=== PATIENT | female | born 1975 | race Caucasian/White ===

== ENCOUNTER 2025-04-08 13:09 | Outpatient (AMB) | payer OTHER, SELFPAY ==
--- OUTSIDE RECORDS SUMMARY | 2024-09-06 10:30 | XMS_ITS ---
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 :1975 A ge:49 Y S ex:Female Date:09/06/2024 Address:[address] [place], [place] [id number] Pcp:RD LR MD Subjective: * Chief Complaints: * 1 . ULTRA W/RENAL AND BLADDER- LOWER ABD PAIN. * Medical History: Objective: * Vitals: Assessment: Plan: * Treatment: * Images: Billing Information: * Visit Code: * Procedure Codes: * Electronic signature of Armand Mercado MD on 04/08/2025 at 01:49 PM EDT Sign off status: Pending * Appointment Provider: Natalia Mercado M.D. Date: 1 11/07/2023 Generated for Printi ng/Famarybethg/eTransmitting on: 0 04/08/2025 01:49 PM EDT
--- NOTE | 2025-04-08 13:11 | A.OFFVIS_ITS ---
Vital Signs 04/08/25 13:13 Height 5 ft 7 in Weight 192 lb 14.472 oz BMI 30.2 BP 98/70 Blood Pressure Location Rt brachial Position Sitting Pulse 65 Pulse Source Pulse Oximeter Pulse Oximetry (%) 96 Oxygen Delivery Method Room Air Intake Visit Reasons: moderate asthma Rn Medical Inpatient Services Required: No Accompanied by: Self / Same As Patient Allergies phenobarbital (Phenobarbital) Allergy (Unknown, Verified 04/08/25 13:15) ANAPHYLAXIS HPI Comments Details: The patient is here for pulmonary evaluation. 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 Apparently she was in her usual state health until back about a year ago she started developing chest pressure shortness of breath and cough. Moderate severity. Difficult for her to work with the significant coughing episodes. She did undergo pulmonary function studies and subsequently also underwent a methacholine challenge which I personally reviewed demonstrating a significant drop in the FEV1 consistent with hyperreactive airways and diagnosis of asthma. She was started on multiple inhalers. She was placed on Wixela. Although this is appeared to be tolerating the powder well causing her to have more chest pressure. Therefore she ends up having to use the albuterol after Wixela. She has tried and failed the Wixela. Does not appear to tolerate powder inhaler. Will go ahead and switch her to Symbicort at this time. In addition to that the patient did have history of smoking. She did take part in the lung cancer screening program. She did have a CAT scan in November 2024 which I personally reviewed demonstrating no acute disease. No pulmonary nodules parenchymal disease to be concerned about. We also did review blood work. She does not have any allergy laboratory studies to review although her eosinophils are completely normal suggesting that this is not allergic asthma. As far as triggers she has been exposed to fumes and sense from candles. She stopped using the candles and her symptoms did improve. 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 In addition to that the patient does have some thickening and dilation of the distal esophagus suggesting the possibility of a hiatal hernia. We did talk about the reflux diet and sleeping elevated. Sometimes she does complain about difficulty swallowing. Will go ahead and request a barium swallow at this time. [facility] Medical History (Updated 04/08/25 @ 20:59 by Raghav Lai MD) Dysphagia Cough Asthma Social History (Updated 04/08/25 @ 13:18 by Rina Rey CMA) Patient Tobacco Use Status: Former Tobacco user Review of Systems Const Denies fever(s) Eyes Reports no additional complaints ENT Reports no additional complaints and Reports dysphagia Card Denies chest pain Resp Reports cough and Reports wheezing GI Reports dysphagia Musc Reports as per HPI, Reports arthralgias, Reports joint swelling and Reports limited range of motion Skin/Breast Denies rash Neuro Reports no additional complaints Endo Reports no additional complaints Juanpablo/Lymph Reports no additional complaints Aller/Immun Reports wheezing Physical Exam Vital Signs: Last Vital Signs Pulse 65 04/08/25 13:13 BP 98/70 04/08/25 13:13 Pulse Ox 96 04/08/25 13:13 Oxygen Delivery Method Room Air 04/08/25 13:13 BMI result Body Mass Index 30.2 Const General: comfortable HEENT Head: Yes normocephalic Neck Neck: Yes supple Chest Chest palpation & inspection: normal inspection of the chest Resp Effort & Inspection: normal respiratory effort and prolonged expiratory phase Auscultation: diminished lung sounds Cardio Heart sounds: S1 normal heart sound present and S2 normal heart sound present Skin General skin exam: no rashes or lesions noted Extrem General: No clubbing and No cyanosis Assessment & Plan Assessment & Plan (1) Asthma: Code(s): J45.909 - Unspecified asthma, uncomplicated Category: Medical Qualifiers: Asthma severity: moderate Asthma persistence: persistent Asthma complication type: uncomplicated Qualified Code(s): J45.40 - Moderate persistent asthma, uncomplicated (2) Cough: Code(s): R05.9 - Cough, unspecified Category: Medical Qualifiers: Cough type: chronic Qualified Code(s): R05.3 - Chronic cough (3) Dysphagia: Code(s): R13.10 - Dysphagia, unspecified Category: Medical Qualifiers: Dysphagia type: unspecified Qualified Code(s): R13.10 - Dysphagia, unspecified Plan Does not tolerate powder inhaler due to adverse effect, will need to switch to HFA formulation Stop Wixela Start Symbicort reflux diet sleep with wedge pillow BArium swallow continue LDCT start Singulair Consider bloodwork/allergy testing if no better F/U 3-4 months Orders: Orders [place] barium swallow Today K21.9 - Gastro-esophageal reflux disease without esophagitis Medications: New budesonide-formoterol 160-4.5 mcg/actuation 2 puffs inhalation BID 10.2 grams 11RF 30 days J44.89 - Other specified chronic obstructive pulmonary disease montelukast (Singulair) 10 mg PO BEDTIME 30 tabs 11RF 30 days J45.909 - Unspecified asthma, uncomplicated Coding Level of Care Code New Pt Level 4 (03827) Diagnoses Moderate persistent asthma without complication J45.40 Asthma severity: moderate Asthma persistence: persistent Asthma complication type: uncomplicated Chronic cough R05.3 Cough type: chronic Dysphagia, unspecified type R13.10 Dysphagia type: unspecified Time Spent (min) 45
[2025-04-08 13:13] VITALS: BP 98/70; PULSE 65; O2SAT 96; BMI 30.2
--- OUTSIDE RECORDS SUMMARY | 2025-04-08 13:49 | XMS_ITS | Data Portability ---
Author Organization EVELIO Shashi Bueno 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 Patient reports pain primarily on top of the shoulder with radiation downward. Symptoms have been present for several years, predating her right shoulder surgery, with gradual worsening. Patient is an active swimmer and notes significant limitations with certain strokes, particularly butterfly. Conservative management has included physical therapy, rest, activity modification, oral anti-inflammatories and cortisone injection treatment along with with stretching exercises. Patient declined corticosteroid injections based on previous experience. No recent trauma reported. Of note, patient had successful right shoulder arthroscopic decompression approximately three years ago with good outcome. I independently reviewed the outside MRI of the left shoulder dated 10/25/2024 from [facility]. There is tendinosis of the distal supraspinatus with probable partial insertional tear at the greater tuberosity footprint. No full thickness tear. Subdeltoid/subacrom ial bursitis noted. Mild to moderate acromioclavicular joint arthrosis with inferior spurring. Degenerative signal in the superior labrum. Upper border tendinosis of the subscapularis. Flattening and intrasubstance signal the biceps tendon consistent with tendinopathy. Anterior and posterior labrum intact. Cartilage of the glenohumeral joint intact. She has a past history of hypertension, seizures and gastritis. Medications are listed in medical record. Past medical, surgical, family and social history; Medications, Allergies and 12-point review of systems have been reviewed, updated and charted. Physical Examination: Height and weight as noted in chart. Constitutional: Patient pleasant, well appearing and in NAD. Mental status: Patient is alert and oriented to person, place and time. No short-term memory deficits. Psychiatric: Mood and affect are appropriate. Head: Normocephalic and atraumatic. Exterior inspection of the ears and nose was unremarkable. Hearing grossly intact. Eyes: Sclera are not blue. 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 Full extraocular motion. Neck: Supple with age-appropriate ROM. No tracheal deviation. No obvious JVD. Respiratory: Non-labored breathing. Symmetric excursion. No audible wheezing or crackles on auscultation. Cardiovascular: Regular rate and rhythm and normal S1 and S2. Skin: No rashes, lesions, wounds to the upper extremities. Normal turgor and coloration. Musculoskeletal: On examination of the left shoulder, there is no effusion, erythema or ecchymosis. Active shoulder elevation 175 . External rotation 50 bilaterally. Internal rotation to the thoracolumbar junction. Discomfort with terminal range of motion. 4+/5 strength resisted abduction on the left with associated pain. Positive impingement signs. Positive acromial clavicular joint and biceps tenderness. Positive Gates's test. Small lipoma noted at the anterolateral shoulder. Impression and Plan: 49-year-old female with a chronic history of recurrent left shoulder pain with overall history, examination and MRI consistent with left shoulder rotator cuff tendinosis with likely partial insertional tear of the distal supraspinatus, subacromial impingement, acromioclavicular joint arthrosis and biceps tendinopathy. I discussed etiology of the patient's symptoms with her at length today. I discussed options both operative and nonoperative. At this point, she has failed conservative treatment including rest, activity modification, oral anti-inflammatories , physical therapy and cortisone injection treatment. She had similar issues to her right shoulder back in 2020 and underwent successful right shoulder arthroscopic decompression surgery with very good outcome. She complains of similar symptoms to her left side. Therefore, I recommend moving forward with left shoulder arthroscopic rotator cuff debridement versus repair, arthroscopic extensive debridement, arthroscopic distal clavicle excision, subacromial decompression with partial acromioplasty and possible biceps tenodesis depending on intraoperative findings. Anticipated recovery after shoulder decompression surgery is approximately 3-4 months. The patient will be in a sling for the first 3-5 days postop. Typically, I have patients begin physical therapy 1 week after surgery. If rotator cuff repair is necessary based upon intraoperative findings, we did discuss that this would prolong the patient's time in a sling for 6 weeks and overall anticipated recovery of 6 months with improvements up to 1 year postop. The patient does wish to proceed. Preoperative history and physical completed. All questions and concerns addressed. 1. A detailed discussion regarding the patient s pathoanatomy and treatment options, both operative and non-operative, was conducted today. 2. Given that conservative measures have failed, I recommended left shoulder arthroscopic rotator cuff debridement versus repair, arthroscopic extensive debridement, arthroscopic distal clavicle excision, subacromial decompression with partial acromioplasty and possible biceps tenodesis depending on intraoperative findings. 2. The mechanics of the major surgery were reviewed with explanation, diagram, and review of imaging. 3. I told the patient that the goal of surgery was to improve their overall function and symptoms, but that surgery may not relieve all symptoms. I advised the patient that symptom resolution after this procedure may be protracted and incomplete. I explained that, as a result, permanent functional limitations may be recommended. 4. An appropriate timeline of recovery was outlined, and appropriate expectations were reviewed. 5. The risks and benefits of surgery, and the nonoperative alternatives, were discussed at length. Risks include, but are not limited to infection, bleeding, damage to nerves, blood vessels, muscle, tendon, bone; need for further surgery, wound healing problems, hardware related problems, non-relief of symptoms, recurrence of pathology, reinjury, chronic pain, chronic numbness, chronic weakness, loss of function, compartment syndrome, fracture, complex regional pain syndrome, joint stiffness, adhesions/scarring, arthritis or progression of arthritis, complications of anesthesia, and blood clots. 6. The patient has been educated in clear, simple language and on their own level of understanding the risks and benefits of all viable treatment options, including those of no treatment. All questions have been answered to their satisfaction. The patient has made an informed decision to proceed with surgery. 7. The patient was offered a second opinion regarding diagnosis and management of their condition and they respectfully declined. The patient was referred for a semi-rigid/rigid orthosis. The patient has weakness and instability of their extremity which requires stabilization for this semi-rigid/rigid orthosis to improve their function. Verbal and written instructions for the use and application of this item were given. Patient was instructed that should the brace result in increased pain, decreased sensation, increased swelling or an overall worsening of their medical condition, to please contact our office immediately. Today's visit involved examining the patient, reviewing the history, reviewing the radiographic studies, counseling the patient regarding treatment options, and the administrative tasks including placing orders, preparing patient information and home handouts and preparing the visit note. 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 Please excuse any errors that may have been overlooked during review of this note. Sometimes, these errors may affect the content or meaning of a given sentence. Please call for corrections. [email or web address] Not available 11/22/2024 07:56:42 02/04/2025 02/04/2025 shoulde [email or web address] Not available 03/2025 08:32:38 03/25/2025 03/25/2025 shoulde [email or web address] Not available 03/03 13:16:00 Plan of Treatment Reminders Order Date Submit Date Provider Last Modified By Organization Details Last Modified Time Details Appointments RECHEC K 15 2024 09:30A M Joseline Toro PA-C Not available Not available Not available Lab None record ed. Referral physic al therap ist referr al - PHYSIC AL THERAP Y REFERR AL ICD-10 : M75.42 ; M75.22 (left) 1. Follow post-s urgica l protoc ol. 2. Soft tissue modali ties as indica ajit. 3. Daily home exerci se and ROM progra m. 4. Do not force painfu l motion . 5. Avoid abduct ion type, long arm streng thenin g exerci ses x 4 weeks. Allow 2-3 times a week for 6 weeks with home progra m. Date of Surger y: January 22, 2025 Comple ajit by: 2024 025 [email or web address] [facility] ([facility]), [address], [place], [address], 11/15/2024 11:11:04 physic al therap ist referr al - VMO Streng thenin g, Quad & Hamstr ing Stretc gisella, Shalonda a Mobili zation , Mack luna Taping pf chondr omalac ia 2023 024 [email or web address] Not available 03/11/2024 16:12:16 Procedures None record ed. Surgeries None record ed. Imaging XR, should er, 2 or more view - 4v L shldr. room 219 2024 025 [facility], [address], [address], [place], [address], 10/14/2024 09:28:32 XR, cervic al spine, 1 view - cspine . room 219 2024 025 [facility], [address], [address], [place], [address], 10/14/2024 09:28:32 MRI, should er, w/o contra st - L shldr mri. ?rct 2024 025 [facility] ([facility]), [address], [place], [address], 10/27/2024 19:13:06 XR, knee, 4 or more view - 301 bilat knee pain 4V 2023 024 bud [facility], [address], [address], [place], [address], 03/11/2024 16:12:16 Medication Orders meloxi cam 15 mg tablet 2023 024 lacho 1 [id number], [address] [facility] [place], [address], 02/29/2024 09:38:34 Patient TargetsNo targets recorded. Patient InstructionsNo instructions recorded. Reason for Referral Physical Therapist Referral for Pain of bilateral knee joints VMO Strengthening, Quad & Hamstring Stretching, Patella Mobilization, Forte Tapingpf chondromalacia Referring Physician: Mita Dickerson, Orthopedic Surgery, [id number] Encounter Date: 02/29/2024 Physical Therapist Referral for Impingement syndrome of left shoulder region PHYSICAL THERAPY REFERRAL ICD-10: M75.42; M75.22(left) 1. Follow post-surgical protocol.2. Soft tissue modalities as indicated.3. Daily home exercise and ROM program.4. Do not force painful motion.5. Avoid abduction type, long arm strengthening exercises x 4 weeks.Allow 2-3 times a week for 6 weeks with home program.Date of Surgery: January 22ompleted by: Referring Physician: Mau Polk, Orthopedic Surgery, Encounter Date: 11/15/2024 Results Created Date Observation Date Name Description Value Unit Range Abnormal Flag Note LastModifiedBy Organization Detail LastModifiedTime 01/04/20 25 01/04/2025 ELECT ROLYT E PANEL sodium 140 mmol/ L 134-14 4 normal Not Available [facility] ([facility]) [address] [place], [address], 01/04/2025 06:05:40 01/04/20 25 01/04/2025 ELECT ROLYT E PANEL potassium 3.1 mmol/ L 3.5-5. 2 below low normal Not Available [facility] ([facility]) [address] [place], [address], 01/04/2025 06:05:40 01/04/20 25 01/04/2025 ELECT ROLYT E PANEL chloride 100 mmol/ L 96-106 normal Not Available [facility] ([facility]) [address] [place], [address], 01/04/2025 06:05:40 01/04/20 25 01/04/2025 ELECT ROLYT E PANEL carbon dioxide, total 24 mmol/ L 20-29 normal Not Available [facility] ([facility]) [address] [place], [address], 01/04/2025 06:05:40 01/16/20 25 01/16/2025 ELECT ROLYT E PANEL sodium 140 mmol/ L 134-14 4 normal Not Available [facility] ([facility]) [address] [place], [address], 01/16/2025 08:12:56 01/16/20 25 01/16/2025 ELECT ROLYT E PANEL potassium 4.0 mmol/ L 3.5-5. 2 normal Not Available [facility] ([facility]) [address] [place], [address], 01/16/2025 08:12:56 01/16/20 25 01/16/2025 ELECT ROLYT E PANEL chloride 98 mmol/ L 96-106 normal Not Available [facility] ([facility]) [address] [place], [address], 01/16/2025 08:12:56 01/16/20 25 01/16/2025 ELECT ROLYT E PANEL carbon dioxide, total 20 mmol/ L 20-29 normal Not Available [facility] ([facility]) [address] [place], [address], 01/16/2025 08:12:56 05/31/20 24 11/28/2020 imagi ng/di agnos tic resul t No observ ation record ed. [email or web address] Not Available 05/04 06:15:32 10/14/19 25 10/14/2024 XR, cervi bouchra spine , 1 view [email or web address]:/ [email or web address] ?Encry pted=s hAaTro YD8dLq bEUv6g %2BXZw aYqtaq 0bqfl% 2Fg9IQ a4ajBk vP9nXo QUaueC m3YtLR FvZlgJ JJ8mAn HZtai3 9v8632 AC0Kqb 36HUKC iKiQtr MwF INTERFACE [facility] [address], [place], [address], 10/14/2024 09:08:03 10/14/19 25 10/14/2024 XR, cervi bouchra spine , 1 view [email or web address]:/ [email or web address] ?Encry pted=s hAaTro YD8dLq bEUv6g %2BXZw aYqtaq 0bqfl% 2Fg9IQ a4ajBk vP9nXo QUaueC m3YtLR FvZlgJ JJ8mAn HZtai3 5x3012 AC0Kqb 36HUKC iKiQtr MwF INTERFACE [facility] [address], [place], [address], 10/14/2024 09:08:06 10/14/19 25 10/14/2024 XR, shoul umu, 2 or more view [email or web address]:/ [email or web address] ?Encry pted=s hAaTro YD8dLq bEUv6g %2BXZw aYqtaq 0bqfl% 2Fg9IQ a4ajBk vP9nXo QUaueC m3YtLR FvZlgJ JJ8mAn HZtai3 3w5665 AC0Kqb 36HUKC lKiQtr MwF INTERFACE [facility] [address], [place], [address], 10/14/2024 09:11:06 10/14/19 25 10/14/2024 XR, shoul umu, 2 or more view [email or web address] ?Encry pted=s hAaTro YD8dLq bEUv6g %2BXZw aYqtaq 0bqfl% 2Fg9IQ a4ajBk vP9nXo QUaueC m3YtLR FvZlgJ JJ8mAn HZtai3 0f7679 AC0Kqb 36HUKC lKiQtr MwF INTERFACE [facility] [address], [place], [address], 10/14/2024 09:11:08 10/27/19 25 10/25/2024 MRI, anirudh sanz, w/o contr ast [facility] Access ion Number : [id number] Patien t Name: Chelsea Diop Record Number : [id number] Date of : 1974 Date of Exam: 2024 Referr ing Physic maryann: [facility] [address], [address] [place] [address] Exam: MR Should er (C-) CPT 22285 - Left Room Descri ption: [facility] 3.0T Clinic al Histor y: Left should er pain. Techni que: MRI of the left should er was perfor med withou t intrav enous contra st. Compar paulino: None. Findin gs: Bone: The bone and bone marrow are normal . Articu lar cartil age: Mild diffus e glenoh umeral cartil age thinni ng. AC joint: Minima l AC joint degene rative change . Rotato r cuff: Modera te grade bursal sided partia l-thic kness tear anteri or fibers the supras pinatu s measur ing 3 mm AP by 5 m TRV, series 3 image 10 series 8 image 22. Mild infras pinatu s tendin opathy . Teres minor appear s intact . Mild subsca pulari s tendin opathy . Normal muscle bulk. Glenoi d labrum and biceps tendon : Mild intra- articu lar biceps tendin opathy . Superi or labral degene ration of withou t discre te tear. Impres kiki: 1. Tiny modera te grade partia l-thic kness bursal sided tear of the supras pinatu s. 2. Mild subsca pulari s tendin opathy . 3. Mild intra- articu lar biceps tendin opathy . Electr onical ly Signed By: Addy maria MD [email or web address] [facility] ([facility]) [address], [place], [address], 10/30/2024 08:28:22 Result Notes Documentation Provider Name and Address Organization Details Recorded Time Xr, Cervical Spine, 1 View : [email or web address] Encrypted=bjOfLmnEG0xHdcN Uv6g%2DNSxbWatkg1noxu%2Fg 0CAu2hsXoiA9wWrYImhzGc5Pn UVDdJbiBWH7fTpUXnfx93t759 4CT8Jwl08PSROkNpYjuIsW Not Available [facility] 10/14/2024 09:08:04 Xr, Cervical Spine, 1 View : [email or web address] Encrypted=aaEnAimQR0aDghF Uv6g%1NAWelPrzaa8nxkb%2Fg 1IVk7rfFcpL6pChSFjesEd7Wu UBInJgnKNS2dVgZKccp75k048 5FY6Zjf07RHGFvZvUunGfN Not Available [facility] 10/14/2024 09:08:06 Xr, Shoulder, 2 Or More View : [email or web address] Encrypted=uaSfZvlGJ2nEdnM Uv6g%0MVIhrKtadz5plda%2Fg 6FPj4gaZylW1dQpSJvgvVj7Rq HBNnNxqCFS1vGeCXvxr71a542 7MM5Vgr51ZBULmEtKelJzY Not Available [facility] 10/14/2024 09:11:07 Xr, Shoulder, 2 Or More View : [email or web address] Encrypted=ayNlGbpAG8nPihP Uv6g%8SDEsrIwqha3fser%2Fg 0USe3vvPaoX0eVxPEpwnTh3Zv BCMsWecXXO8pYyUXtvf30q261 1FT0Wsx89WZZCqKlPliYsI Not Available [facility] 10/14/2024 09:11:09 Mri, Shoulder, W/o Contrast : [facility] [place] Accession Number: [id number] Patient Name: Geni Diop Date of : 1975 Date of Exam: 10-25-2024 Referring Physician: Forest Whitley [facility] [address], [address] [place] [address] Exam: MR Shoulder (C-) CPT 48359 - Left Room Description: [facility] 3.0T Clinical History: Left shoulder pain. Technique: MRI of the left shoulder was performed without intravenous contrast. Comparison: None. Findings: Bone: The bone and bone marrow are normal. Articular cartilage: Mild diffuse glenohumeral cartilage thinning. AC joint: Minimal AC joint degenerative change. Rotator cuff: Moderate grade bursal sided partial-thickness tear anterior fibers the supraspinatus measuring 3 mm AP by 5 m TRV, series 3 image 10 series 8 image 22. Mild infraspinatus tendinopathy. Teres minor appears intact. Mild subscapularis tendinopathy. Normal muscle bulk. Glenoid labrum and biceps tendon: Mild intra-articular biceps tendinopathy. Superior labral degeneration of without discrete tear. Impression: 1. Tiny moderate grade partial-thickness bursal sided tear of the supraspinatus. 2. Mild subscapularis tendinopathy. 3. Mild intra-articular biceps tendinopathy. Electronically Signed By: EVELIO Ramachandran MD [facility] 10/30/2024 08:28:23 Problems Name Problem SNOMED Code Status Onset Date Resolution Date Notes Provider Name and Address Organization Details Recorded Time Disorder of electrolyte s 080988320 Active 2024 EVELIO Ramos [facility] 5 09:32:12 Essential hypertensio n 22845240 Active 2024 EVELIO Ramos [facility] 5 14:47:17 Impingement syndrome of left shoulder region 9928122600169 04 Active 2024 KAYLIA L'HEUREUX EVELIO randhawa [facility] 5 11:11:23 Osteoarthri tis of joint of left shoulder region 7193541609863 08 Active 2024 Joseline Toro PA-C [address], [place], [address], [facility] 5 08:33:00 Bilateral osteoarthri tis of knees 8036082814881 07 Active 2023 Mita Briceño i, PA-C [address], [place], [address], [facility] 4 11:36:53 Problem Notes None recorded. Procedures Surgical History Date Name Laterality Status Provider Name and Address Organization Details Recorded Time 1 Shoulder Surgery completed Mita Dickerson PA-C [address], [place], [address], [facility] 02/29/2024 11:37:56 3 Bariatric Surgery completed Mita Dickerson PA-C [address], [place], [address], [facility] 02/29/2024 11:37:56 Imaging Results None recorded. Procedure Notes None recorded. Medical Equipment None Reported. Allergies Allergen ID Allergen Name Allergen Category Reaction Reaction Severity Criticality Documentation Date Start Date Code Code System Note Provider Name and Address Organization Details Recorded Time 776975 phenobarb ital medicatio n swelling Not available Not available 02/27/2024 8134 RxNorm JEREL Stark [address], [place], [address], [facility] 4 16:29:06 57751 acetamino phen / oxycodone medicatio n Not available Not available Not available 12/04/20232008 78735 3 [facility] 5 08:55:59 Medications Name Sig Start Date Stop Date Status Note LastModified by Organization Details LastModified Time amoxicillin 500 mg capsule TAKE 1 CAPSULE BY MOUTH EVERY 6 HOURS UNTIL GONE 02/04 completed Not Available Not Available Not Available acetic acid 2 % ear solution TAKE 4 DROPS (OTIC (EAR)) 3 TIMES PER DAY FOR 5 DAYS 11/15 completed Not Available Not Available Not Available azithromyci n 250 mg tablet TAKE 2 TABLETS BY MOUTH TODAY, THEN TAKE 1 TABLET DAILY FOR 4 DAYS DIRECTED 10/14 completed Not Available Not Available Not Available fluconazole 150 mg tablet TAKE 1 TABLET BY MOUTH ONCE 02/27 completed Not Available Not Available Not Available benzonatate 200 mg capsule TAKE 1 CAPSULE BY MOUTH THREE TIMES A DAY DIRECTED FOR 10 DAYS 10/14 completed Not Available Not Available Not Available hydrocodone 5 mg-acetamin ophen 325 mg tablet TAKE 1 TO 2 TABLET BY MOUTH EVERY 6 HOURS NEEDED FOR PAIN active Not Available Not Available No t Available meloxicam 15 mg tablet Take 1 tablet every day by oral route for 30 days. 11/15 completed Not Available Not Available Not Available ondansetron HCl 4 mg tablet TAKE 1 TABLET BY MOUTH EVERY 6 TO 8 HOURS NEEDED FOR NAUSEA active Not Available Not Available No t Available prednisone 20 mg tablet TAKE 2 TABLETS BY MOUTH EVERY DAY FOR 5 DAYS 02/27 completed Not Available Not Available Not Available meclizine 12.5 mg tablet TAKE 1 TABLET BY MOUTH THREE TIMES A DAY DIRECTED FOR 10 DAYS NOT COVERED 02/27 completed Not Available Not Available Not Available chlorthalid one 25 mg tablet TAKE 1 TABLET BY MOUTH EVERY DAY active Not Available Not Available No t Available omeprazole 40 mg capsule,del ayed release TAKE 1 CAPSULE BY MOUTH EVERY DAY active Not Available Not Available No t Available aspirin 81 mg tablet,suzi yed release TAKE 1 TABLET BY MOUTH EVERY DAY. BEGINNING THE DAY AFTER SURGERY. TAKE WITH FOOD 02/04 completed Not Available Not Available Not Available trazodone 100 mg tablet TAKE 1 TABLET BY MOUTH EVERYDAY AT BEDTIME active Not Available Not Available No t Available doxycycline monohydrate 100 mg capsule TAKE 1 CAPSULE BY MOUTH TWICE A DAY FOR 7 DAYS 02/27 completed Not Available Not Available Not Available ferrous sulfate 325 mg (65 mg iron) tablet TAKE 1 TABLET BY MOUTH EVERY DAY 02/27 completed Not Available Not Available Not Available codeine 10 mg-guaifene sin 100 mg/5 mL oral liquid TAKE 10 ML BY MOUTH EVERY 4 HOURS FOR 5 DAYS DIRECTED 10/14 completed Not Available Not Available Not Available ergocalcife rol (vitamin D2) 1,250 mcg (50,000 unit) capsule TAKE 1 CAPSULE BY MOUTH EVERY WEEK FOR 84 DAYS 02/27 completed Not Available Not Available Not Available albuterol sulfate HFA 90 mcg/actuati on aerosol inhaler INHALE 2 PUFFS BY MOUTH EVERY 4 HOURS NEEDED active Not Available Not Available No t Available fluticasone propionate 50 mcg/actuati on nasal spray,suspe nsion SPRAY 2 SPRAYS INTRANASA LLY DAILY 02/27 completed Not Available Not Available Not Available naproxen 500 mg tablet TAKE 1 TABLET(S) 2 TIMES A DAY BY ORAL ROUTE FOR 5 DAYS. TAKE WITH FOOD. 02/04 completed Not Available Not Available Not Available amoxicillin 875 mg-potassiu m clavulanate 125 mg tablet TAKE 1 TABLET BY MOUTH TWICE A DAY FOR 10 DAYS 02/27 completed Not Available Not Available Not Available oxycodone 5 mg tablet TAKE 1 TABLET(S) EVERY 6 HOURS BY ORAL ROUTE NEEDED FOR MODERATE TO SEVERE PAIN active Not Available Not Available No t Available escitalopra m 20 mg tablet TAKE 1 TABLET BY MOUTH EVERYDAY AT BEDTIME active Not Available Not Available No t Available nitrofurant oin monohydrate /macrocryst als 100 mg capsule TAKE 1 CAPSULE BY MOUTH 2 TIMES PER DAY FOR 7 DAYS MUST ADMINISTE R WITH A MEAL/FOOD active Not Available Not Available No t Available cholecalcif yovany (vitamin D3) 50 mcg (2,000 unit) capsule TAKE 1 CAPSULE BY MOUTH EVERY DAY FOR 90 DAYS active Not Available Not Available No t Available oxycodone HCl-oxycodo ne-ASA as directed 1Tabs po Q 4-6 hrs prn pain. DO NOT DRIVE WHILE TAKING THIS MEDICATIO N 02/27 completed Statu s: 'Curr ent'; Not Available Not Available Not Available lamotrigine ER 200 mg tablet,exte nded release 24 hr TAKE 2 TABLETS (400 MG TOTAL) BY MOUTH AT BED TIME. active Not Available Not Available No t Available Wixela Inhub 250 mcg-50 mcg/dose powder for inhalation INHALE 1 PUFF BY MOUTH EVERY 12 HOURS DIRECTED 11/15 completed Not Available Not Available Not Available Wixela Inhub 500 mcg-50 mcg/dose powder for inhalation INHALE 1 PUFF INTO THE LUNGS TWICE A DAY FOR 30 DAYS active Not Available Not Available No t Available Vitals Date Recorded Body height Body mass index (BMI) Body weight Provider Name and Address Organization Details Last Updated DateTime 10/14/2024 170.18 cm 32.9 kg/m2 56314.4 g Sallie Barney [facility] 10/14/2024 08:58:48 Date Recorded Body height Body mass index (BMI) Body weight Heart rate Body temperature Oxygen saturation Oxygen saturation in Arterial blood by Pulse oximetry Respiratory rate Systolic And Diastolic Provider Name and Address Organization Details Last Updated DateTime 170.18 cm 32.9 kg/m2 74853.4 g 67 /min 98 [degF] 98 % 98 % 18 /min 116/74 mm[Hg] MERCEDES BUSTILLOS [facility] 09:58:43 Date Recorded Body height Body mass index (BMI) Body weight Provider Name and Address Organization Details Last Updated DateTime 02/04/2025 170.18 cm 30.9 kg/m2 67513.7 g jimi rodas [facility] 02/04/2025 08:48:02 Date Recorded Body height Body mass index (BMI) Body weight Provider Name and Address Organization Details Last Updated DateTime 02/29/2024 170.18 cm 32.9 kg/m2 46149.4 g CHANDLER NESBITT [facility] 02/29/2024 09:11:21 Date Recorded Body height Provider Name an d Address Organization Details Last Updated DateTime 03/25/2025 170.18 cm EZEQUIEL RYAN [facility] 03/25/2025 10:01:30 Social History Question Answer Notes LastModified by Organizat ion Details LastModified Time Tobacco Smoking Status Former Smoker Sallie randhawa [facility] 10/14/2024 08:56:14 When Did You Quit Smoking? 1-5yearssin celastcigar ette Information not available 10/14/2024 What Is Your Relationship Status? Single Information not available 10/14/2024 How Many Years Have You Smoked Tobacco? 35 Information not available 10/14/2024 Sex: Unknown Functional Status Question Answer Note LastModified by Organizat ion Details LastModified Time How many times per week do you consume alcohol? Less than 1 time per week Information not available 10/14/2024 Do you use any illicit or recreational drugs? No Information not available 10/14/2024 Do you or have you ever used any other forms of tobacco or nicotine? Yes [email or web address] Information not available 11/15/2024 Do you or have you ever used e-cigarettes or vape? Never used electronic cigarettes Information not available 10/14/2024 Mental Status None recorded. Family History Nothing Reported. Medical History Condition Response Allergies/Hayfever Y Breathing or lung disorders Y Anxiety/Depression Y Anemia Y Kidney/Bladder Problems Y Arthritis Y Seizures/Epilepsy Y Acid Reflux (GERD) N Asthma Y Hypertension Y Gynecological HistoryNo gynecological history recorded. Obstetrics History GPAL:G 0 P 0 0 0 0 Past Encounters Encounter ID Performer Location Encounter Start Date Encounter Closed Date Diagnosis/Indication Diagnosis SNOMED-CT Code Diagnosis ICD10 Code Diagnosis Note [id number] JEREL Nation [address] [place] [address] 02/29/2024 08:53:29 03/11/2024 16:12:16 Pain of bilateral knee joints 8299952125 32035 M25.561 M25.562 Bilateral osteoarthritis of knees 3199958101 76380 M17.0 [id number] JEREL Sargent [address] [place] [address] 10/14/2024 08:52:51 11/04/2024 13:04:12 Pain of left shoulder joint 9789639865 5177802 M25.512 Impingemen t syndrome of left shoulder region 8012505626 89662 M75.42 [id number] MD CHIKIS Gómez [address] [place] [address] 11/15/2024 08:20:35 12/03/2024 13:05:39 Impingement syndrome of left shoulder region 1664922175 57012 M75.42 Nontraumat ic partial rupture of left rotator cuff 0604153396 819361 M75.277 [id number] JEREL Patiño [address] [place], [place] [address] 02/04/2025 08:40:00 02/11/2025 10:00:26 Postoperative visit 297307134 Z48.89 Impingemen t syndrome of left shoulder region 1931986946 55168 M75.42 Osteoarthr itis of joint of left shoulder region 0759427424 55719 M19.883 [id number] JEREL Patiño [facility] [address] [place] [address] 03/25/2025 09:56:04 04/02/2025 13:15:28 Postoperative visit 584095219 Z48.89 Impingemen t syndrome of left shoulder region 0349614683 36850 M75.42 Osteoarthr itis of joint of left shoulder region 8283937880 62719 M19.012 Health Concerns Section Related Observation LastModified by Organization Detai ls LastModified Time None Recorded Concern Status LastModified by Organization Details LastModified Time None Recorded Advance Directives Directive None Recorded Payers Insurance Date Sequence Insurance Name Policy Number Policy Carter Covered Member ID Carter Member ID Guarantor Name 04/02/2025 1 [facility] [id number] Geni Diop [id number] Geni Diop Notes Date Note Type Note Provider Name and Address Organization Details Recorded Time 02/29/2024 text/html I am seeing the patient today under the supervision of Dr. Polk who was available but who did not see the patient. HPI: 48 y.o .female patient presents today for bilateral knee pain, right worse than left. She reports she has had knee pain since college, no specific injury. Pain is diffuse about the knee, worse with knee flexion to extension and reports painful, palpable crepitus. She attempted physical therapy many years ago and reports this made her pain worse. She takes ibuprofen occasionally without relief. Past family, social history and review of systems has been reviewed, updated and is located in the patient s chart. X-RAYS:4v X-rays of the Bilateral knees were ordered, obtained and reviewed today at [facility] AP and Mccall views demonstrate minimal medial compartment space narrowing. Lateral and merchant views demonstrate mild patellofemoral space narrowing with osteophyte formation. IMPRESSION: Bilateral knee - patellofemoral osteoarthritis PLAN: Findings reviewed. We discussed conservative treatment as an appropriate initial option. Meloxicam 15 mg to be taken daily with food was sent to her pharmacy. She was instructed to take this with food and avoid other NSAIDs. Physical therapy prescription was provided. Follow-up in 10 to 12 weeks for recheck. If no better, would have a low threshold to obtain an MRI of the right knee. All of her concerns are addressed and she understands and agrees with the plan. 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 An attempt at proofreading has been made to minimize errors. Please call for corrections. Mita Dickerson PA-C [address] [place] [address] [address], [place], [address], [facility] 02/29/2024 11:38:08 10/14/2024 text/html I am seeing the patient today under the supervision of Dr. Rai who was available but who did not see the patient. HPI: Geni is a very pleasant 49-year-old female who presents for orthopedic evaluation of left nondominant shoulder pain. 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 Treatment for the left shoulder has included Aleve twice daily and also a home exercise program. She has done home therapy as she is familiar with this. Despite these measures she is not noting any improvement. Patient had previous right shoulder arthroscopy by Dr. Polk for impingement and has done very well. She is familiar with a exercise program having been through therapy on the right. She is describing nighttime discomfort. Occasional numbness and tingling down the arm. Pain worse with over shoulder height reaching. Also is describing a small subcutaneous bump underneath the skin posterior shoulder. Past family, medical, social history and review of systems has been reviewed, updated and signed by me and is located in the patient's chart. Generally healthy 49-year-old without major medical issues. Prior right shoulder arthroscopy for bone spurs. Examination: The patient is well appearing and in no apparent distress. Alert and oriented x3. Gait is symmetric. Patient does not show any overt deformities about the shoulder. Evaluation of the left shoulder shows a small subcutaneous mass with bump deformity consistent with lipoma posteriorly. This is approximately 1 cm in size. Evaluation of the shoulder has quite a bit of guarding with attempts at motion. Patient has moderate to severe pain with endrange external and internal rotation and is lacking 30 to 40 degrees of rotation. Forward flexion to 140 degrees with pain beyond that. Pain reproduced with resisted rotator cuff strength testing but intact 5/5 strength and normal mechanics. X-rays ordered, obtained and independently reviewed today at [facility]. 4 views of the left shoulder and lateral of the cervical spine were independently reviewed today. For the shoulder AP, Grashey, outlet and axillary views are overall within normal limits. There is no significant spurring. No narrowing of the AC joint. No marginal osteophytes.Cervical spine radiographic exam also well-preserved and within normal limits no significant disc collapse and well-preserved alignment Impression: Left shoulder impingement tendinitis/bursitis Plan: Lengthy discussion today with Geni regarding her left shoulder symptoms and diagnosis. She feels that her symptoms are similar to what she had on the opposite right and is interested in moving forward with definitive management with decompression and distal clavicle excision. She informs me that with the opposite right shoulder cortisone and therapy did not help her to any great degree. She has used oral NSAIDs and home physical therapy. Despite these measures and having persistent pain. I am recommending at this time MRI imaging of the left shoulder to assess for rotator cuff pathology and bursitis. Recheck as arranged with Dr. Polk in 5 weeks for his evaluation and MRI review. Potential need for surgery was discussed. Forest Whtiley PA-C [address] [facility] [address], [place], [address], [facility] 10/14/2024 09:45:49 02/04/2025 text/html I am seeing the patient today under the supervision of Dr. Polk who was available but who did not see the patient. HPI: Patient presents to the office today approximately 2 weeks status post left shoulder arthroscopy, subacromial decompression, distal clavicle excision, and extensive debridement. Overall doing well. Pain has been controlled. Denies issues with incision sites or neurovascular changes. No systemic complaints. PMH/PSH/MEDS/ALL/FMH/ SOC HX/ROS are reviewed in detail per my medical intake sheet. General Exam: Vital signs are as noted below Mental status: Alert and lucid. Normal insight, affect and grooming. DRILL DOCTOR: Gross motor coordination is intact. No spasticity or clonus noted. EXAMINATION: The patient is well appearing and in no apparent distress. Alert and oriented x3. Gait is symmetric. Left shoulder reveals well-healing surgical scars. No erythema, ecchymosis, or active drainage. Good muscle bulk without atrophy. Neurovascularly intact. No localized tenderness. Passive elevation of the arm to approximately 90 degrees. Full range of motion present at the elbow, wrist, and hand. No evidence of instability of the shoulder. Intraoperative photos have been reviewed. IMPRESSION: Approximately 2 weeks status post left shoulder arthroscopy, subacromial decompression, distal clavicle excision, and extensive debridement. PLAN: Intraoperative findings have been reviewed with the patient. The patient is recovering well following recent surgery. Pain has been controlled. We reviewed the signs/symptoms of infection. Has weaned off the sling as directed. Participating in physical therapy per Dr. Polk's post-operative protocol. Will follow up in one month for a recheck, sooner if there are any issues. Work note given. All questions were answered. Joseline Toro PA-C [address] [facility] [address] [place] [address], [address], [facility] 02/04/2025 16:19:05 03/25/2025 text/html I am seeing the patient today under the supervision of Dr. Reaves who was available but who did not see the patient. HPI: Patient presents to the office today approximately 2 months status post left shoulder arthroscopy, subacromial decompression, distal clavicle excision, and extensive debridement. Overall doing well. Pain has been controlled. Has been making good progress with physical therapy. PMH/PSH/MEDS/ALL/FMH/ SOC HX/ROS are reviewed in detail per my medical intake sheet. General Exam: Vital signs are as noted below Mental status: Alert and lucid. Normal insight, affect and grooming. DRILL DOCTOR: Gross motor coordination is intact. No spasticity or clonus noted. EXAMINATION: The patient is well appearing and in no apparent distress. Alert and oriented x3. Gait is symmetric. Left shoulder reveals well-healed surgical scars. No erythema, ecchymosis, or active drainage. Good muscle bulk without atrophy. Neurovascularly intact. No localized tenderness. Passive elevation of the arm to approximately 170 degrees, IR to L4, ER 60 degrees. Full range of motion present at the elbow, wrist, and hand. No evidence of instability of the shoulder. Strength is appropriate. Intraoperative photos have been reviewed. IMPRESSION: Approximately 2 months status post left shoulder arthroscopy, subacromial decompression, distal clavicle excision, and extensive debridement. PLAN: Intraoperative findings have been reviewed with the patient. The patient is recovering well following recent surgery. Pain has been controlled. We reviewed the signs/symptoms of infection. Has been participating in physical therapy per Dr. Polk's post-operative protocol. Will follow up in 6-8 weeks, sooner if there are any issues. Work note given. All questions were answered. Joseline Toro PA-C [address] [facility] [address], [place], [address], [facility] 03/25/2025 10:50:52 OBGyn Episode No OBEpisode recorded.
--- OUTSIDE RECORDS SUMMARY | 2025-04-08 13:49 | XMS_ITS | Clinical Summary ---
Author Organization [facility] Address [address] [place] [address] Care Team Providers Care College Specialist Name Role Phone Unavailable Primary Care Provider Unavailabl e Surgical History Surgery Date Site/Laterality Comments GASTRIC BYPASS 2002 PROCEDURE: SD GASTRIC RSTCV W/BYP W/SM INT RCNSTJ LIMIT ABSRPJ CHOLECYSTECTOMY 06/06 PROCEDURE: LAPAROSCOPIC CHOLECYSTECT HYSTERECTOMY age 19 PROCEDURE: SD VAGINAL HYSTERECTOMY UTERUS 250 GM/<; COMMENT: dysfunctional Uterine bleeding TONSILLECTOMY 03/2007 PROCEDURE: HISTORICAL TONSILLECTOMY APPENDECTOMY PROCEDURE: HISTORICAL APPENDECTOMY Medical History Medical History Date Comments Unspecified epilepsy without mention of intractable epilepsy DX:Unspecified epilepsy with out mention of intractable epilepsy Depressive disorder, not els ewhere classified DX:Depressive disorder, not elsewhere classified Morbid obesity (CMS/HCC V24, CMS/HCC V28) DX:Morbid obesity (HCC); COM MENT: hx of, bypass 2002 Unspecified arthropathy, lower leg DX:Unspecified arthropathy, lower leg Calculus of kidney DX:Calculus o f kidney Tobacco use disorder 02/08/2006 DX:Tobacco use disorder Historical Medical DX DX:Fam hx- cardiovas dis NEC Family History Medical History Relation Name Comments Heart attack Father age 35 Other: cad Maternal Grandfather Diabetes Maternal Grandmother Lung cancer Maternal Grandmother smoker Other: tachycardia Mother Relation Name Status Comments Father Alive mi age 35 Maternal Grandfather cad in his 40's Maternal Grandmother lung ca ncer - smoker Mother Alive tachycardia Paternal Grandmother diabeti c Social History Tobacco Use Types Packs/Day Years Used Date Smoking Tobacco: Every Day Cigarettes Alcohol Use Standard Drinks/Week Comments Not Asked 0 (1 standard drink = 0.6 oz pur e alcohol) Comments Unknown Sex and Gender Information Value Date Recorded Sex Assigned at Not on file Legal Sex Female 2:19 PM EST Gender Identity Not on file Sexual Orientation Not on file Obstetrics History Plan of Treatment Health Maintenance Due Date Last Done Comments Breast Cancer Screening 1973 DTaP,Tdap,and Td Vaccines (1 - Tdap) 1992 Hepatitis B Vaccines (1 of 3 - 19+ 3-dose series) 1992 Cervical Cancer Screening: P ap Smear 1994 Pneumococcal Vaccine: 50+ Ye ars (1 of 1 - PCV) 2023 Zoster Vaccines (1 of 2) 2023 COVID-19 Vaccine (1 - 2023-2 5 season) 2024 Influenza Vaccine (#1) 2025 HIB Vaccines Aged Out No longer eligi ble based on patient's age to complete this topic HPV Vaccines Aged Out No longer eligi ble based on patient's age to complete this topic Hepatitis A Vaccines Aged Out No long er eligible based on patient's age to complete this topic IPV Vaccines Aged Out No longer eligi ble based on patient's age to complete this topic MMR Vaccines Aged Out No longer eligi ble based on patient's age to complete this topic Meningococcal ACWY Vaccine Aged Out N o longer eligible based on patient's age to complete this topic Meningococcal B Vaccine Aged Out No l onger eligible based on patient's age to complete this topic Pneumococcal Vaccine: Pediat rics (0 to 5 Years) and At-Risk Patients (6 to 49 Years) Aged Out No longer eligible b ased on patient's age to complete this topic RSV Immunization Patients Un umu 20 months Aged Out No longer eligible b ased on patient's age to complete this topic Varicella Vaccines Aged Out No longer eligible based on patient's age to complete this topic
--- OUTSIDE RECORDS SUMMARY | 2025-04-08 13:49 | XMS_ITS | Clinical Summary ---
Author Organization [facility] Address [address] [place] [address] Care Team Providers Care Pulmonary Fellow Name Role Phone LongLamberto ledesma Primary Care Provider [phone] Allergies Active Allergy Reactions Criticality Noted Date Comments Phenobarbital Swelling High Topiramate Unknown Verapamil Constipation Low Medications chlorthalidone (HYGROTEN) 25 mg tablet TAKE 1/2 A TABLET EVERY DAY BY MOUTH 3 8 Active escitalopram (LEXAPRO) 20 mg tablet 30 mg. 2 8 Active omeprazole (PriLOSEC) 40 mg capsule Take 40 mg by mouth daily. 1 8 Active traZODone (DESYREL) 100 mg tablet daily. Active fluticasone propion-salmeter oL (ADVAIR DISKUS) 250-50 mcg inhaler Inhale 1 puff by mouth 2 times a day. Rinse mouth with water after use. Do not swallow. Active albuterol (PROAIR HFA,VENTOLIN HFA) 90 mcg inhaler Inhale 1-2 puffs by mouth as needed for wheezing or shortness of breath. Use with spacer. Active lamoTRIgine XR (LaMICtal XR) 200 mg tablet extended release 24hrIndications: Juvenile myoclonic epilepsy, not intractable, without status epilepticus (HCC) Take 2 tablets (400 mg total) by mouth at bed time. 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 right handed female with a history of migraines, asthma, anxiety, and depression, who presents to [facility] epilepsy clinic for routine follow-up regarding JM epilepsy. She is on Lamotrigine monotherapy. She had dizziness with higher doses of Lamotrigine. Doing well overall. She has noted memory difficulties over the last year. We discussed contributing factors that may affect memory, including mood, sleep, assisted use of AEDs. - Continue Lamotrigine XR 400 mg nightly - Neuropsychological evaluation for memory concerns - Discussed HOBSCOTCH for Self-Management and Cognitive Training- Seizure diary - Seizure and fall precautions at all times - Follow up in one year, or sooner as needed Assessment & Plan (07/12/2023 9:17 AM EDT): This is a 48 y.o. right handed female with a history of migraines, anxiety, and depression, who presents to [facility] epilepsy clinic for routine follow-up regarding JM epilepsy. She is on Lamotrigine monotherapy. She had dizziness with higher doses of Lamotrigine. Doing well. No change in jerking with activity. - Continue Lamotrigine XR 400 mg HS - Surveillance lab ordered; complete with routine lab work from PCP. (LTG level tends to run low) - Seizure diary - Seizure and fall precautions at all times - Follow up in one year, or sooner as needed Assessment & Plan (07/12/2022 10:36 AM EDT): This is a 47 year old female with a history of LOUISA, on Lamotrigine monotherapy. She had dizziness with higher doses of Lamotrigine; no further jerking or myoclonus on current dose. - Continue Lamotrigine XR 400 mg HS - Surveillance lab ordered; complete with routine lab work from PCP. (LTG level tends to run low) - Seizure diary - Seizure and fall precautions at all times - Follow up in one year, or sooner as needed Assessment & Plan (07/09/2021 9:22 AM EDT): This is a 46 year old female with a history of LOUISA, on Lamotrigine monotherapy. She had dizziness with higher doses of Lamotrigine; improved when dose was decreased. - Continue Lamotrigine XR 400 mg HS - Surveillance lab ordered; complete with routine lab work from PCP. (LTG level tends to run low) - Seizure diary - Seizure and fall precautions at all times - Follow up in one year, or sooner as needed Assessment & Plan (10/16/2020 1:33 PM EST): This is a 45 year old female with a history of LOUISA, on Lamotrgine monotherapy. In June, LTg was increased for increase myoclonus but patient had reported increased dizziness. It was titrated down at last visit with improvement in dizziness. Patient requests to decrease it back down to 400 mg HS. I am agreeable. We, again, discussed, adding AED for continued jerking of her hands. She continues to decline. I advised if jerking or dizziness persists/worsens to call clinic. - Decrease Lamotrigine XR 500 mg to 400 mg HS. - Seizure diary - Seizure and fall precautions discussed - Lab work at next scheduled visit (LTG level tends to run low) - Follow up in June 2021, as scheduled, or sooner as needed Assessment & Plan (10/06/2020 8:32 AM EST): This is a 45 year old female with a history of LOUISA, on Lamotrigine monotherapy. She has gone years without a convulsive seizure but continues to have myoclonus in her hands. This has continued even with increase of Lamotrigine dose. Though, she reports dizziness with higher dose. We will decrease dose today and evaluate if dizziness improves. We discussed adding another agent if her myoclonus continues but she declines at this time. - Decrease dose of Lamotrigine XR 600 mg to 500 mg nightly. Can consider decreasing back to 400 mg if dizziness continues. - Consider adding another medication if myoclonus worsens and patient is willing - Encouraged to keep seizure diary - Seizure and fall precautions maintained - Will follow up in 2 weeks to evaluate if worsened/improved dizziness Assessment & Plan (06/30/2020 2:27 PM EDT): This is a 45 year old female with a history of LOUISA, well controlled on Lamotrigine therapy. She had gone years without a seizure and about a year without any jerking and now states she has had jerking in her hands almost daily. She is compliant with medications and sleeps well when she takes Trazodone. She does endorse some anxiety since pandemic. - Change regular Lamotrigine 400 mg HS to Lamotrigine XR 600 mg HS - Telehealth visit in 3 months to evaluate effectiveness of new medication, as [place]. - Lab work ordered for Lamotrigine level. Last level was in 2010. - Continue to keep a seizure diary to monitor seizure pattern/description and frequency. - Side effects discussed. - Maintain seizure precautions (no driving, avoid heights, swim with caution) - Follow up in clinic, in 6 months for epilepsy f/u. Migraine, intractable 11/13/2014 Generalized anxiety disorder 01/22/2013 Recurrent major depression in partial remission 01/22/2013 Family History Medical History Relation Name Comments Diabetes Father Hypertension Mother Relation Name Status Comments Father Alive Mother Alive Social History Tobacco Use Types Packs/Day Years Used Date Smoking Tobacco: Former Cigarettes Q uit: 06/12/2018 Smokeless Tobacco: Former Alcohol Use Standard Drinks/Week Comments No 0 (1 standard drink = 0.6 oz pur e alcohol) Comments Unknown Sex and Gender Information Value Date Recorded Sex Assigned at Female 07/11/2023 12:27 PM EDT Legal Sex Female 12:04 AM EDT Gender Identity Female 07/11/2023 12:27 PM EDT Sexual Orientation Straight 07/11/2023 12 :27 PM EDT Last Filed Vital Signs Vital Sign Reading Time Taken Comments Blood Pressure 129/75 07/12/2022 10:04 AM EDT Pulse 79 07/12/2022 10:04 AM EDT Temperature 36.4 C (97.5 F) 07/12/2022 10:04 AM EDT Respiratory Rate 18 07/12/2022 10:04 AM EDT Oxygen Saturation - - Inhaled Oxygen Concentration - - Weight 91.6 kg (202 lb) 07/12/2022 10:04 AM EDT Height 170.2 cm (5' 7 ) 07/12/2022 10:04 AM EDT Body Mass Index 31.64 07/12/2022 10:04 AM EDT Plan of Treatment Upcoming Encounters Date Type Department Care Team (Gabrielle st Contact Info) Description 07/15/2025 9:00 AM EDT Telehealth [facility] [address], [place] [id number] Shin Zuniga PA [address] [place] [address] Health Maintenance Due Date Last Done Comments Cologuard 1973 Colon Cancer Screening 1973 Colonoscopy 1973 FOBT / Fit Test 1973 HIV Screening 1973 HPV and Pap Smear 1973 Hepatitis C Screening 1973 Sigmoidoscopy 1973 Hepatitis B Vaccines (1 of 3 - 19+ 3-dose series) 1992 Cervical Cancer Screening 04/27/1998 Pap Smear 04/27/1998 04/27/1995 Mammogram 2013 DTaP,Tdap,and Td Vaccines (2 - Td or Tdap) 02/07/2023 02/07/2013 CT Lung Cancer Screening (Baseline) 2023 Pneumococcal Vaccine: 50+ Ye ars (1 of 1 - PCV) 2023 Zoster Vaccines (2 of 2) 10/11/2023 08/16/2023 COVID-19 Vaccine (6 - 2023-2 5 season) 2024 08/16/2023, 09/14/2022, 07/20/2021, Additional history exists Alcohol/Substance Use Screening 10/02/2024 Depression Screening and Follow-Up 10/02/2024 Social Drivers of Health Fani ual Screening 10/02/2024 Influenza Vaccine (#1) 2025 4, 07/07/2023, 07/05/2022, Additional history exists RSV Vaccine (60+ years old a nd patients) (1 - 1-dose 75+ series) 2048 Procedures * Due to [place] state law, this organization might not be sharing negative HIV tests. Procedure Name Priority Date/Time Associated Diagnosis Comments PAP Routine 04/27/1995 11:34 AM EDT from Last 3 Months or Most Recently Relevant to Health Maintenance Results * Due to [place] state law, this organization might not be sharing negative HIV tests. * Pap (04/27/1995 11:34 AM EDT) Joint Supervisor Clin Data 2. Regular menstrual cycle:, no [facility] Joint Supervisor Clin Data 3. Kennedy:, 0 U [facility] Joint Supervisor Clin Data 6. Gynecologic findings:, H/O Hyperplasia [facility] Joint Supervisor Clin Data 7. Source of this specimen:, VCE [facility] Joint Supervisor Clin Data 8. Hormonal Contraceptive:, no [facility] Joint Supervisor Clin Data 9. Intrauterine Contraceptive:, no [facility] Joint Supervisor Signout GYNE PAP SMEAR ADEQUACY: Satisfactory but limited by red and white blood cells. GENERAL DIAGNOSTIC CATEGORY: Within NORMAL limits Hormonal evaluation (vaginal smear only): Not evaluable No pathogenic organisms seen REMARKS/RECOMMEN DATIONS: Increased neutrophils. Edited by: [id number] - 0949 CHRISTOPHE [facility] Cc Results To [facility] Signature REPORT SIGNED: KI LANDIS 05/07/95 (preliminary) KI LANDIS 05/07/95 [facility] Cytology / Unknown 5 11:34 AM EDT 04/27/1995 11:34 AM EDT us Historical Conversion Provider LAB PATHOLOGY/CYT OLOGY ORDERABLES Final Result [facility] [place] [address], from Last 3 Months or Most Recently Relevant to Health Maintenance Insurance [id number] Care Teams Pulmonary Fellow Relationship Specialty Start Date End Date Lamberto Coronado [address] [facility] [address] [place] [address] PCP - General 04/20/17
== END 2025-04-08 13:47 | disposition home or self-care (01) ==
PROVIDERS: PCP Pediatrics; Referring Provider Pediatrics; Visit Provider Hospitalist
DX: J45.40 Moderate persistent asthma, uncomplicated (principal); R05.3 Chronic cough; R13.10 Dysphagia, unspecified
CPT/HCPCS: 99204

== ENCOUNTER 2025-08-12 12:48 | Outpatient (AMB) | payer OTHER, SELFPAY ==
--- OUTSIDE RECORDS SUMMARY | 2024-09-06 09:30 | XMS_ITS ---
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 :1975 A ge:49 Y S ex:Female Date:09/06/2024 Address:[address] [place], [place] [id number] Pcp:RD LR MD Subjective: * Chief Complaints: * 1 . ULTRA W/RENAL AND BLADDER- LOWER ABD PAIN. * Medical History: Objective: * Vitals: Assessment: Plan: * Treatment: * Images: Billing Information: * Visit Code: * Procedure Codes: * Electronic signature of Armand Mercado MD on 08/12/2025 at 02:29 PM EST Sign off status: Pending * Appointment Provider: Natalia Mercado M.D. Date: 11/07/2023 Generated for Printi ng/Famarybethg/eTransmitting on: 10/12/2024 02:29 PM EST
[2025-08-12 12:53] VITALS: BP 108/68; PULSE 69; O2SAT 98; BMI 28.1
--- NOTE | 2025-08-12 12:53 | MHC.OFFVIS ---
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 Apparently she was in her usual state health until back about a year ago she started developing chest pressure shortness of breath and cough. Moderate severity. Difficult for her to work with the significant coughing episodes. She did undergo pulmonary function studies and subsequently also underwent a methacholine challenge which I personally reviewed demonstrating a significant drop in the FEV1 consistent with hyperreactive airways and diagnosis of asthma. She was started on multiple inhalers. She was placed on Wixela. Although this is appeared to be tolerating the powder well causing her to have more chest pressure. Therefore she ends up having to use the albuterol after Wixela. She has tried and failed the Wixela. Does not appear to tolerate powder inhaler. Will go ahead and switch her to Symbicort at this time. In addition to that the patient did have history of smoking. She did take part in the lung cancer screening program. She did have a CAT scan in November 2024 which I personally reviewed demonstrating no acute disease. No pulmonary nodules parenchymal disease to be concerned about. We also did review blood work. She does not have any allergy laboratory studies to review although her eosinophils are completely normal suggesting that this is not allergic asthma. As far as triggers she has been exposed to fumes and sense from candles. She stopped using the candles and her symptoms did improve. 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 In addition to that the patient does have some thickening and dilation of the distal esophagus suggesting the possibility of a hiatal hernia. We did talk about the reflux diet and sleeping elevated. Sometimes she does complain about difficulty swallowing. Will go ahead and request a barium swallow at this time. 08/12/2025 the patient is here for pulmonary follow-up visit. Recently she did develop a cold and started developing a cough. She is feeling better though she still has a cough but is only mild intermittent. The phlegm is clear. If it gets worse she will call and I will send her some antibiotics. She did try the Symbicort for period of time. But she did not see any improvement so therefore she stopped it. She still feels a pressure sensation in the middle the chest. Does not seem to want to go away. She did not want to get the barium swallow because she does not tolerate the barium well she has had that done before. The patient does have some wheezing on exam I did give her a nebulizer treatment with DuoNeb but she did not really see any significant improvement although her respiratory exam did improve. I did give her a spacer I want to try the Symbicort again at least for a month with a spacer to see if we can provide some relief specially since she positive methacholine challenge. If the patient continues to be sent to can also consider doing a CAT scan to better address the lung parenchyma. [facility] Medical History (Updated 08/12/25 @ 19:46 by Raghav Lai MD) Dysphagia Cough Asthma Social History Patient Tobacco Use Status: Former Tobacco user Review of Systems Const Denies fever(s) Eyes Reports no additional complaints ENT Reports no additional complaints and Reports dysphagia Card Denies chest pain Resp Reports cough GI Reports dysphagia Musc Reports as per HPI, Reports arthralgias, Reports joint swelling and Reports limited range of motion Skin/Breast Denies rash Neuro Reports no additional complaints Endo Reports no additional complaints Juanpablo/Lymph Reports no additional complaints Physical Exam Vital Signs: Last Vital Signs Pulse 69 08/12/25 12:53 BP 108/68 08/12/25 12:53 Pulse Ox 98 08/12/25 12:53 Oxygen Delivery Method Room Air 08/12/25 12:53 BMI result Body Mass Index 28.1 Const General: comfortable HEENT Head: Yes normocephalic Neck Neck: Yes supple Chest Chest palpation & inspection: normal inspection of the chest Resp Effort & Inspection: normal respiratory effort and prolonged expiratory phase Auscultation: wheezes and diminished lung sounds Cardio Heart sounds: S1 normal heart sound present and S2 normal heart sound present Skin General skin exam: no rashes or lesions noted Extrem General: No clubbing and No cyanosis Assessment & Plan Assessment & Plan (1) Asthma: Comment: +HEMANT Code(s): J45.909 - Unspecified asthma, uncomplicated Category: Medical Qualifiers: Asthma complication type: uncomplicated Asthma persistence: persistent Asthma severity: moderate Qualified Code(s): J45.40 - Moderate persistent asthma, uncomplicated (2) Cough: Code(s): R05.9 - Cough, unspecified Category: Medical Qualifiers: Cough type: chronic Qualified Code(s): R05.3 - Chronic cough (3) Dysphagia: Code(s): R13.10 - Dysphagia, unspecified Category: Medical Qualifiers: Dysphagia type: unspecified Qualified Code(s): R13.10 - Dysphagia, unspecified Plan continue Symbicort HFA formulation with spacer conisder Spiriva (LAMA) reflux diet sleep with wedge pillow continue LDCT continue Singulair Consider Air instrument, Harmonica to help with air trapping Consider bloodwork/allergy testing if no better F/U 4 months Coding Level of Care Code Est Pt Level 4 (42795) Diagnoses Moderate persistent asthma without complication J45.40 Asthma complication type: uncomplicated Asthma persistence: persistent Asthma severity: moderate Chronic cough R05.3 Cough type: chronic Dysphagia, unspecified type R13.10 Dysphagia type: unspecified Time Spent (min) 16
--- OUTSIDE RECORDS SUMMARY | 2025-08-12 14:29 | XMS_ITS | Clinical Summary ---
Author Organization [facility] Address [address] [place] [address] Care Team Providers Care Commercial Sales Specialist Name Role Phone Unavailable Primary Care Provider Unavailabl e Surgical History Surgery Date Site/Laterality Comments GASTRIC BYPASS 2002 PROCEDURE: [place] GASTRIC RSTCV W/BYP W/SM INT RCNSTJ LIMIT ABSRPJ CHOLECYSTECTOMY 06/06 PROCEDURE: LAPAROSCOPIC CHOLECYSTECT HYSTERECTOMY age 19 PROCEDURE: [place] VAGINAL HYSTERECTOMY UTERUS 250 GM/<; COMMENT: dysfunctional [...] 2023 Zoster Vaccines (1 of 2) 2023 Depression Screening 10/02/2024 COVID-19 Vaccine (1 - 2024-2 6 season) 2025 Influenza Vaccine (#1) 2025 RSV Immunization Adult Patie nts (1 - 1-dose 75+ series) 2048 HIB Vaccines Aged Out No longer eligi [...]
--- OUTSIDE RECORDS SUMMARY | 2025-08-12 14:29 | XMS_ITS | Encounter Summary ---
Author Organization [facility] Address [address] [facility] [address] [place] [id number] Phone Care Team Providers Care Restaurant Crew Name Role Phone Lamberto Coronado MD Primary Care Provider Encounter Details Date Type Department Care Team (Late st Contact Info) Description 12/25/2023 Procedure Pass [facility] Admitting Dept Virtual Department [address] [place] [address] Social History Tobacco Use Types Packs/Day Years Used Date Smoking Tobacco: Former Cigarettes Alcohol Use Standard Drinks/Week Comments Never 0 (1 standard drink = 0.6 oz pur e alcohol) Education Answer Date Recorded Are you interested in more education? Not on nataly e 10/17/2023 Are you concerned about learning? Not on file 10/17/2023 No 10/17/2023 No 10/17/2023 Digital Access Answer Date Recorded No 10/17/2023 No 10/17/2023 Reliable internet access at home? Not on file 10/17/2023 Device with a working camera? Not on file Intimate Partner Violence Answer Date R ecorded Are you denied basic needs s uch as food, clothing, or medical care? No 12/25/2023 In the past 12 months have y ou been in a relationship with a person who hurts, threatens, or tries to control you? No 12/25/2023 Are you denied basic needs s uch as food, clothing, or medical care? No 12/25/2023 In the past 12 months have y ou been in a relationship with a person who hurts, threatens, or tries to control you? No 12/25/2023 Comments Unknown Sex and Gender Information Value Date Recorded Sex Assigned at Not on file Legal Sex Female 10:28 AM EST Gender Identity Not on file Sexual Orientation Not on file documented as of this encounter Plan of Treatment Not on file documented as of this encounter Visit Diagnoses Not on filedocumented in this encounter Care Teams Restaurant Crew Relationship Specialty Start Date End Date Lamberto Coronado MD [address] [place] [address] PCP - General Internal Medicine 12/25/23 documented as of this encounter Additional Source Comments The information contained in this document represents components of the legal health record. It is not the complete legal health record.[facility]
--- OUTSIDE RECORDS SUMMARY | 2025-08-12 14:30 | XMS_ITS | Data Portability ---
Author Organization [facility], Main Office Address [address] [place] [address] Care Team Providers Care Accounting Tutor Name Role Phone LAMBERTO LR Primary Care Provider ELLY SCHAEFFER Equipment Maintenance Tech [phone] [facility] NEURO Neurologist [facility]) Orthopedic Surgeon GERTRUDIS AMAYA Production Cost Estimator [phone] GONZALO PRECIADO Orthopedic Surgeon [phone] BARIATRIC SURGERY AND WEIGHT MANAGEMENT PROGRAM AT [facility] Bariatric Surgeon CAIN ENAMORADO Psychiatrist ALFRED JOHNSON Thermostat Machine Tender CORINNA ABREU Thermostat Machine Tender [phone] JIM LAI Public Safety Telecommunicator Assessment Encounter Date Assessment Date Assessment LastModified by Organization Details LastModified Time 11/01/2023 11/01/2023 Discussed with patient the signs/symptoms warranted for a return to office visit and/or an ER visit. Patient understood and agreed with the plan. [email or web address] Not available 11/01/2023 10:19:10 09/18/2024 09/18/2024 This service was provided using telemedicine. Patient consented to video & audio visit Patient was located in the [facility]. Provider was located in the office. No other persons participated in the telemedicine visit except for the patient unless otherwise indicated here. Total time of visit was 18 minutes. [email or web address] Not available 09/18/2024 15:03:42 Plan of Treatment Reminders Order Date Submit Date Provider Last Modified By Organization Details Last Modified Time Details Appointments PE EST 2025 02:45P M Lamberto Lr MD Not available Not available Not available Lab jhoan chauhan, seru m 2024 025 [email or web address], [address], [place], [address], 05/07/2025 12:46:01 CMP, seru m or plas ma 2024 025 [email or web address], [address], [place], [address], 05/07/2025 12:46:02 TSH, ultr a-se nsit macey, seru m 2024 025 MARJ [facility] (Centralized Electronic Ordering - All Locations), Patient Can Go To The Location Of Their Choice, [id number] 10/07/2024 14:58:50 tristen min D, 25-h ydro xy, anthonya l, seru m 2024 025 [email or web address], [address], [place], [address], 05/07/2025 12:46:02 tristen min B12, seru m 2024 025 [email or web address], [address], [place], [address], 05/07/2025 12:46:02 phos phor us, seru m or plas ma 2024 025 MARJ [facility], [address], [place], [address], 10/07/2024 14:58:51 CBC w/ auto diff 2024 025 [email or web address], [address], [place], [address], 05/07/2025 12:46:02 fermin ROJAS ma 2023 024 MARJ [facility] (Centralized Electronic Ordering - All Locations), Patient Can Go To The Location Of Their Choice, [id number] 01/12/2024 06:08:11 CBC w/ auto diff 2023 024 MARJ [facility] (Centralized Electronic Ordering - All Locations), Patient Can Go To The Location Of Their Choice, 01/12/2024 06:08:11 Referral pulm onol ogis t refe rral - Mode rate pers iste nt chuck ma . 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 Imaging LDCT , ches t, for lung canc er scre enin g - *LDC T Lung Canc er Scre enin g Prog marcela Ina al Orde r* The mimi ent does not have lung canc er or sign s of lung canc er at this time . Mimi ent has not had a ches t CT in the last 12 anastasiia hs. *SHA RED DECI KIKI LARAPhan THOMAS* I have disc usse d the bene fits and risk s of lung canc er scre enin g in comp pat ce with [facility] avelino ed deci kiki laraphan thomas guid tracie es incl udin g sara y dete ctio n, radi atio n expo sure , fals e nega tive rate s, fals e posi tive rate s, over -sadie gnos is, inci dent al find ings , impa ct of barbra rbid itie s and the abil ity or will ingn ess to unde rgo diag nosi s and kush tmen t if some thin g conc erni ng is foun d. I have revi ewed with the mimi ent the impo rtan ce of abst inen ce if a form er smok er, and impo rtan ce of smok ing cess atio n if a curr ent smok er. I have furn ishe d the mimi ent with info rmat ion and reso urce s avai labl e to quit smok ing if appr opri ate. 2024 025 [email or web address], [address] [facility] [address] [facility], [place], [address], 05/07/2025 12:39:32 MAMM O, scre enin g, bila ayush l - Perf orm Diag nost ic Mamm ogra m and Joyce st Ultr asou nd if need ed / Perf orm Ultr asou nd Guid ed Aspi rati on and/ or Joyce st Biop sy if dez ante d 2024 025 [facility], [address], [address], [place], [address], 11/08/2024 12:26:42 PFT, comp lete 2023 024 [facility], [facility] [place], [address], 11/22/2023 16:01:06 CT, ches t, w/ cont rast - pers iste nt coug h. xray nega tive for pneu sade a. anti biot ics and ster oids prov grayson no reli ef. 2023 024 robbie [facility], [address] [place], [address], 11/02/2023 11:13:10 Medication Orders Wixe la Inhu b 500 mcg- 50 mcg/ dose powd er for inha lati on 2024 025 [email or web address] [facility] #[id number], [address] [place], [address], 01/06/2025 13:08:23 albu tero l sulf ate HFA 90 mcg/ actu atio n aero gaetano inha ler 2024 025 [facility] #[id number], [address] [place], [address], 11/11/2024 11:23:30 Zith ania x Z-Pa k 250 mg tabl et 2023 025 [facility] #[id number], [address] [place], [address], 10/07/2024 14:01:31 Tristen min D3 50 mcg (2,0 00 unit ) caps ule 2023 024 [email or web address] [id number], [address] [place], [address], 09/18/2024 15:06:03 carrie onat ate 200 mg caps ule 2023 025 [facility] #[id number], [address] [place], [address], 10/07/2024 14:01:42 code ine 10 mg-g uaif pee in 100 mg/5 mL oral liqu id 2023 025 MARJ [id number], [address] [place], [address], 10/07/2024 14:01:52 mecl izin e 12.5 mg tabl et 2023 024 [email or web address] [id number], [address] [place], [address], 09/18/2024 14:39:30 Patient TargetsNo targets recorded. Patient Instructions Encounter Date Encounter Id Patient Instructions Last Modified By Organization Details Last Modified Time 11/01/2023 [id number] methacholine challenge* [email or web address] Not available 11/03/2023 14:57:18 01/11/2024 [id number] benign paroxysmal positional vertigo (bppv): care instructions [email or web address] Not available 01/11/2024 09:59:12 orthostatic blood pressure* [email or web address] Not available 01/11/2024 10:05:28 To call or return for worsening or concerns [email or web address] Not available 01/11/2024 10:12:21 09/18/2024 [id number] pneumonia: care instructions [email or web address] Not available 09/18/2024 15:00:32 cough: care instructions [email or web address] Not available 09/18/2024 15:00:31 To call or return for worsening or concerns [email or web address] Not available 09/18/2024 15:01:20 10/07/2024 [id number] depression treatment: care instructions awychowski Not available 10/07/2024 14:58:33 Cervical Cancer Screening awychowski Not available 10/07/2024 14:58:32 learning about colon cancer awychowski Not available 10/07/2024 14:58:33 iron deficiency anemia: care instructions awychowski Not available 10/07/2024 14:58:33 body mass index: care instructions awychowski Not available 10/07/2024 14:58:34 learning about healthy weight awychowski Not available 10/07/2024 14:58:34 Starting a Weight-Loss Plan: Care Instructions [email or web address] Not available 10/07/2024 14:58:33 Starting a Weight-Loss Plan: Care Instructions [email or web address] Not available 10/07/2024 14:58:33 Reason for Referral Orthopedic Surgeon Referral for Pain of bilateral knee joints chronic bilateral knee pain Referring Physician: Rg Huang, Family Medicine, Encounter Date: 01/11/2024 Physical Therapist Referral for Benign paroxysmal positional vertigo vestibular therapy for vertigo Referring Physician: Rg Huang, [facility], Encounter Date: 01/11/2024 Editor News/dietitian Refer ral for Body mass index 30+ - obesity Referring Physician: Lamberto Lr, [facility] Medicine, Encounter Date: 10/07/2024 Public Safety Telecommunicator Referral for M oderate persistent asthma Moderate persistent asthma . Referring Physician: Lora Phelps, Internal Medicine, Encounter Date: 11/11/2024 Results Created Date Observation Date Name Description Value Unit Range Abnormal Flag Note LastModifiedBy Organization Detail LastModifiedTime 07/19/2007/19/2024 COLOG UARD cologuard result Cancel led - Order d not applic able Not Available [facility] [address], [place], [address], 07/19/2024 07:52:53 11/17/1911/17/2023 COMPL ETE CBC WITH DIFF WBC 5.7 K/mm3 (4.0-1 1.0) Not Available [facility] (Centralized Electronic Ordering - All Locations) Patient Can Go To The Location Of Their Choice, 11/17/2023 15:52:57 11/17/1911/17/2023 COMPL ETE CBC WITH DIFF RBC 5.64 M/mm3 (4.20- 5.40) high Not Available [facility] (Centralized Electronic Ordering - All Locations) Patient Can Go To The Location Of Their Choice, 11/17/2023 15:52:57 11/17/1911/17/2023 COMPL ETE CBC WITH DIFF HGB 14.5 gm/dL (11.7- 15.5) Not Available [facility] (Centralized Electronic Ordering - All Locations) Patient Can Go To The Location Of Their Choice, 11/17/2023 15:52:57 11/17/1911/17/2023 COMPL ETE CBC WITH DIFF HCT 44.0 % (35.7- 45.8) Not Available [facility] (Centralized Electronic Ordering - All Locations) Patient Can Go To The Location Of Their Choice, 11/17/2023 15:52:57 11/17/1911/17/2023 COMPL ETE CBC WITH DIFF MCV 78.0 fL (80.0- 100.0) low Not Available [facility] (Centralized Electronic Ordering - All Locations) Patient Can Go To The Location Of Their Choice, 11/17/2023 15:52:57 11/17/1911/17/2023 COMPL ETE CBC WITH DIFF MCH 25.7 pg (27.0- 34.0) low Not Available [facility] (Centralized Electronic Ordering - All Locations) Patient Can Go To The Location Of Their Choice, 11/17/2023 15:52:57 11/17/1911/17/2023 COMPL ETE CBC WITH DIFF MCHC 33.0 g/dL (33.0- 37.0) Not Available [facility] (Centralized Electronic Ordering - All Locations) Patient Can Go To The Location Of Their Choice, 11/17/2023 15:52:57 11/17/1911/17/2023 COMPL ETE CBC WITH DIFF plt 221 K/mm3 (150-4 60) Not Available [facility] (Centralized Electronic Ordering - All Locations) Patient Can Go To The Location Of Their Choice, 11/17/2023 15:52:57 11/17/1911/17/2023 COMPL ETE CBC WITH DIFF RDW-SD 50.3 fL (<47.0 ) high Not Available [facility] (Centralized Electronic Ordering - All Locations) Patient Can Go To The Location Of Their Choice, 11/17/2023 15:52:57 11/17/1911/17/2023 COMPL ETE CBC WITH DIFF MPV 10.5 fL (9.4-1 2.4) Not Available [facility] (Centralized Electronic Ordering - All Locations) Patient Can Go To The Location Of Their Choice, 11/17/2023 15:52:57 11/17/1911/17/2023 COMPL ETE CBC WITH DIFF automated NRBC 0.0 #/100 _WBC' s Not Available [facility] (Centralized Electronic Ordering - All Locations) Patient Can Go To The Location Of Their Choice, 11/17/2023 15:52:57 11/17/1911/17/2023 COMPL ETE CBC WITH DIFF abs. NRBC 0.0 K/mm3 Not Available [facility] (Centralized Electronic Ordering - All Locations) Patient Can Go To The Location Of Their Choice, 11/17/2023 15:52:57 11/17/1911/17/2023 COMPL ETE CBC WITH DIFF neut # 3.6 K/mm3 (1.3-7 .0) Not Available [facility] ([facility]ized Electronic Ordering - All Locations) Patient Can Go To The Location Of Their Choice, 11/17/2023 15:52:57 11/17/1911/17/2023 COMPL ETE CBC WITH DIFF lymph # 1.6 K/mm3 (0.8-3 .1) Not Available [facility] (Centralized Electronic Ordering - All Locations) Patient Can Go To The Location Of Their Choice, 11/17/2023 15:52:57 11/17/1911/17/2023 COMPL ETE CBC WITH DIFF mono# 0.5 K/mm3 (0.4-0 .9) Not Available [facility] (Centralized Electronic Ordering - All Locations) Patient Can Go To The Location Of Their Choice, 11/17/2023 15:52:57 11/17/1911/17/2023 COMPL ETE CBC WITH DIFF eo # 0.0 K/mm3 (0.0-0 .4) Not Available [facility] (Centralized Electronic Ordering - All Locations) Patient Can Go To The Location Of Their Choice, 11/17/2023 15:52:57 11/17/1911/17/2023 COMPL ETE CBC WITH DIFF baso # 0.0 K/mm3 (0.0-0 .1) Not Available [facility] ([facility]ized Electronic Ordering - All Locations) Patient Can Go To The Location Of Their Choice, 11/17/2023 15:52:57 11/17/1911/17/2023 COMPL ETE CBC WITH DIFF abs. imm gran 0.0 K/mm3 Not Available [facility] ([facility] Order[facility] - All Locations) Patient Can Go To The Location Of Their Choice, 11/17/2023 15:52:57 11/17/1911/17/2023 COMPL ETE CBC WITH DIFF neut 63.4 % (44-76 ) Not Available [facility] ([facility]ized Electronic Ordering - All Locations) Patient Can Go To The Location Of Their Choice, 11/17/2023 15:52:57 11/17/1911/17/2023 COMPL ETE CBC WITH DIFF lymph 27.4 % (15-43 ) Not Available [facility] ([facility]ized Electronic Ordering - All Locations) Patient Can Go To The Location Of Their Choice, 11/17/2023 15:52:57 11/17/1911/17/2023 COMPL ETE CBC WITH DIFF monocyte 8.9 % (4.5-1 0.5) Not Available [facility] ([facility]ized Electronic Ordering - All Locations) Patient Can Go To The Location Of Their Choice, 11/17/2023 15:52:57 11/17/1911/17/2023 COMPL ETE CBC WITH DIFF eo 0.0 % (0-6) Not Available [facility] ([facility]ized Electronic Ordering - All Locations) Patient Can Go To The Location Of Their Choice, 11/17/2023 15:52:57 11/17/1911/17/2023 COMPL ETE CBC WITH DIFF baso 0.0 % (0-2) Not Available [facility] (Centralized Electronic Ordering - All Locations) Patient Can Go To The Location Of Their Choice, 11/17/2023 15:52:57 11/17/1911/17/2023 COMPL ETE CBC WITH DIFF imm gran 0.3 % Not Available [facility] (Centralized Electronic Ordering - All Locations) Patient Can Go To The Location Of Their Choice, 11/17/2023 15:52:57 11/17/1911/17/2023 ANTI- HEPAT ITIS C anti-hepatit is C (neg) normal NEGAT MACEY Refer ence range : Negat macey This test was perfo rmed on the Abbot t Archi tect immun oassa y syste m. Not Available [facility] (Centralized Electronic Ordering - All Locations) Patient Can Go To The Location Of Their Choice, 11/17/2023 17:49:12 11/17/19 24 11/17/2023 IRON & TIBC iron 65 mcg/d L (30-16 0) Not Available [facility] ([facility]ized Electronic Ordering - All Locations) Patient Can Go To The Location Of Their Choice, 11/17/2023 18:00:54 11/17/19 24 11/17/2023 IRON & TIBC unsaturated iron binding capac 361 mcg/d L (110-3 70) Not Available [facility] ([facility]ized Electronic Ordering - All Locations) Patient Can Go To The Location Of Their Choice, 11/17/2023 18:00:54 11/17/1911/17/2023 IRON & TIBC est T. iron bind capacity 426 mcg/d L (140-5 30) Not Available [facility] ([facility] Ordering - All Locations) Patient Can Go To The Location Of Their Choice, 11/17/2023 18:00:54 11/17/1911/17/2023 IRON & TIBC % iron saturation 15 % (20-55 ) low Not Available [facility] ([facility] Ordering - All Locations) Patient Can Go To The Location Of Their Choice, 11/17/2023 18:00:54 11/17/1911/17/2023 25OH VITAM IN D 25OH vitamin D 46.8 NG/mL (20-50 ) Not Available [facility] ([facility] Ordering - All Locations) Patient Can Go To The Location Of Their Choice, 11/17/2023 18:27:15 01/11/20 24 01/11/2024 BMP7+ EGFR sodium 141 mmol/ L 134-14 4 Not Available [facility] ([facility]) [address] [facility] [facility], [place], [address], 01/12/2024 06:08:11 01/11/20 24 01/11/2024 BMP7+ EGFR potassium 3.7 mmol/ L 3.5-5. 2 Not Available [facility] ([facility]) [address] [facility], [place], [address], 01/12/2024 06:08:11 01/11/20 24 01/11/2024 BMP7+ EGFR chloride 101 mmol/ L 96-106 Not Available [facility] ([facility]) [address] [facility], [place], [address], 01/12/2024 06:08:11 01/11/20 24 01/12/2024 BMP7+ EGFR glucose 91 mg/dL 70-99 Not Available [facility] ([facility]) [address] [facility], [place], [address], 01/12/2024 06:08:11 01/11/20 24 01/12/2024 BMP7+ EGFR BUN 10 mg/dL 6-24 Not Available [facility] ([facility]) [address] [facility], [place], [address], 01/12/2024 06:08:11 01/11/20 24 01/12/2024 BMP7+ EGFR creatinine 0.89 mg/dL 0.57-1 .00 Not Available [facility] ([facility]) [address] [facility], [place], [address], 01/12/2024 06:08:11 01/11/20 24 01/12/2024 BMP7+ EGFR eGFR 79 mL/mi n/1.7 3 >59 Not Available [facility] ([facility]) [address] [facility], [place], [address], 01/12/2024 06:08:11 01/11/20 24 01/12/2024 BMP7+ EGFR carbon dioxide, total 24 mmol/ L 20-29 Not Available [facility] ([facility]) [address] [facility], [place], [address], 01/12/2024 06:08:11 01/11/20 24 01/11/2024 CBC WITH DIFFE RENTI AL/PL ATELE T WBC 5.6 x10e3 /uL 3.4-10 .8 Not Available [facility] ([facility]) [address] [facility], [place], [address], 01/12/2024 06:08:11 01/11/20 24 01/11/2024 CBC WITH DIFFE RENTI AL/PL ATELE T RBC 5.02 x10e6 /uL 3.77-5 .28 Not Available [facility] ([facility]) [address] [facility], [place], [address], 01/12/2024 06:08:11 01/11/20 24 01/11/2024 CBC WITH DIFFE RENTI AL/PL ATELE T hemoglobin 14.3 g/dL 11.1-1 5.9 Not Available [facility] ([facility]) [address] [facility], [place], [address], 01/12/2024 06:08:11 01/11/20 24 01/11/2024 CBC WITH DIFFE RENTI AL/PL ATELE T hematocrit 42.5 % 34.0-4 6.6 Not Available [facility] ([facility]) [address] [facility], [place], [address], 01/12/2024 06:08:11 01/11/20 24 01/11/2024 CBC WITH DIFFE RENTI AL/PL ATELE T MCV 85 fL 79-97 Not Available [facility] ([facility]) [address] [facility], [place], [address], 01/12/2024 06:08:11 01/11/20 24 01/11/2024 CBC WITH DIFFE RENTI AL/PL ATELE T MCH 28.5 pg 26.6-3 3.0 Not Available [facility] ([facility]) [address] [place], [address], 01/12/2024 06:08:11 01/11/20 24 01/11/2024 CBC WITH DIFFE RENTI AL/PL ATELE T MCHC 33.6 g/dL 31.5-3 5.7 Not Available [facility] ([facility]) [address] [facility], [place], [address], 01/12/2024 06:08:11 01/11/20 24 01/11/2024 CBC WITH DIFFE RENTI AL/PL ATELE T RDW 14.7 % 11.7-1 5.4 Not Available [facility] ([facility]) [address] [facility], [place], [address], 01/12/2024 06:08:11 01/11/20 24 01/11/2024 CBC WITH DIFFE RENTI AL/PL ATELE T platelets 211 x10e3 /uL 150-45 0 Not Available [facility] ([facility]) [address] [facility], [place], [address], 01/12/2024 06:08:11 01/11/20 24 01/11/2024 CBC WITH DIFFE RENTI AL/PL ATELE T neutrophils 61 % not estab. Not Available [facility] ([facility]) [address] [facility], [place], [address], 01/12/2024 06:08:11 01/11/20 24 01/11/2024 CBC WITH DIFFE RENTI AL/PL ATELE T lymphs 30 % not estab. Not Available [facility] ([facility]) [address] [facility], [place], [address], 01/12/2024 06:08:11 01/11/20 24 01/11/2024 CBC WITH DIFFE RENTI AL/PL ATELE T monocytes 9 % not estab. Not Available [facility] ([facility]) [address] [facility], [place], [address], 01/12/2024 06:08:11 01/11/20 24 01/11/2024 CBC WITH DIFFE RENTI AL/PL ATELE T eos 0 % not estab. Not Available [facility] ([facility]) [address] [facility], [place], [address], 01/12/2024 06:08:11 01/11/20 24 01/11/2024 CBC WITH DIFFE RENTI AL/PL ATELE T basos 0 % not estab. Not Available [facility] ([facility]) [address] [facility], [place], [address], 01/12/2024 06:08:11 01/11/20 24 01/11/2024 CBC WITH DIFFE RENTI AL/PL ATELE T immature cells ASSOCIATE SALES Not Available [facility] ([facility]) [address] [facility], [place], [address], 01/12/2024 06:08:11 01/11/20 24 01/11/2024 CBC WITH DIFFE RENTI AL/PL ATELE T neutrophils (absolute) 3.4 x10e3 /uL 1.4-7. 0 Not Available [facility] ([facility]) [address] [facility], [place], [address], 01/12/2024 06:08:11 01/11/20 24 01/11/2024 CBC WITH DIFFE RENTI AL/PL ATELE T lymphs (absolute) 1.7 x10e3 /uL 0.7-3. 1 Not Available [facility] ([facility]) [address] [place], [address], 01/12/2024 06:08:11 01/11/20 24 01/11/2024 CBC WITH DIFFE RENTI AL/PL ATELE T monocytes(ab solute) 0.5 x10e3 /uL 0.1-0. 9 Not Available [facility] ([facility]) [address] [place], [address], 01/12/2024 06:08:11 01/11/20 24 01/11/2024 CBC WITH DIFFE RENTI AL/PL ATELE T eos (absolute) 0.0 x10e3 /uL 0.0-0. 4 Not Available [facility] ([facility]) [address] [facility], [place], [address], 01/12/2024 06:08:11 01/11/20 24 01/11/2024 CBC WITH DIFFE RENTI AL/PL ATELE T baso (absolute) 0.0 x10e3 /uL 0.0-0. 2 Not Available [facility] ([facility]) [address] [facility], [place], [address], 01/12/2024 06:08:11 01/11/20 24 01/11/2024 CBC WITH DIFFE RENTI AL/PL ATELE T immature granulocytes 0 % not estab. Not Available [facility] ([facility]) [address] [facility], [place], [address], 01/12/2024 06:08:11 01/11/20 24 01/11/2024 CBC WITH DIFFE RENTI AL/PL ATELE T immature grans (abs) 0.0 x10e3 /uL 0.0-0. 1 Not Available [facility] ([facility]) [address] [facility], [place], [address], 01/12/2024 06:08:11 01/11/20 24 01/11/2024 CBC WITH DIFFE RENTI AL/PL ATELE T NRBC ASSOCIATE SALES Not Available [facility] ([facility]) [address] [facility], [place], [address], 01/12/2024 06:08:11 01/11/20 24 01/11/2024 CBC WITH DIFFE RENTI AL/PL ATELE T hematology comments: ASSOCIATE SALES Not Available [facility] ([facility]) [address] [facility], [place], [address], 01/12/2024 06:08:11 11/03/19 24 11/03/2023 CT, chest , w/ contr ast CT Chest W/ Contra st INDICA TION: Reason : R05.3 CHRONI C COUGH; Clinic al [facility] on(s): Other: TECHNI QUE: Helica l CT scan of the chest with IV contra st, format ajit in 3 planes . 75 cc of Omnipa que 300 was admini stered intrav enousl y. Weight -based protoc ol was perfor med using automa tic exposu re contro l. CTDIvo l Body: 10.66 mGy, DLP Body: 395 mGy*cm . COMPAR JOHN: Correl ation with chest radiog raph 024. FINDIN GS: Rn Integrity view findin gs, lines and tubes: None. Trache a and airway s: Patent withou t eviden ce of trache al or endobr onchia l lesion . Lungs and pleura : Clear lungs. No effusi on or pneumo thorax . Medias tinum and rubi: No mass or hemato ma. No medias tinal or hilar lympha denopa thy. No esopha geal abnorm ality. Partia lly imaged thyroi d is unrema rkable . Heart: Heart is normal in size. No perica rdial effusi on. Aorta: No aortic aneury sm. Pulmon mildred arteri es: Normal calibe r. No eviden ce of pulmon mildred emboli sm on this study perfor med withou t angiog raphic techni que. Chest wall soft tissue s: No acute abnorm ality. Diaphr agm: Intact . Upper abdome n: Status post cholec ystect braden. Postsu rgical change s to the stomac h are partia lly imaged . Bones: No acute abnorm ality. IMPRES KIKI: No acute abnorm ality. WSN: [id number] Orderi ng Physic maryann: Lakeisha Gómez Dictat ed By: Riri Guerrero MD Dictat ed Date/T dale: 1:18 pm Review ed By: Riri Guerrero MD Signed By: Riri Guerrero MD Signed Date/T dale: 1:18 pm Transc ribed By: RIZWANA Transc ribed Date/T dale: 1:14 pm Patien t Class: Outpat ient [email or web address] [facility] (Outpt Imaging) [address], [place], [address], 11/03/2023 14:03:34 11/03/19 24 11/03/2023 CT, chest , w/ contr ast No observ ation record ed. [facility] [address] [facility], [place], [address], 11/03/2023 15:03:30 11/22/19 24 11/17/2023 metha choli ne chall enge* No observ ation record ed. [place] [id number] [facility] (Centralized Electronic Ordering - All Locations) Patient Can Go To The Location Of Their Choice, [address] 11/23/2023 08:38:14 11/22/19 24 11/09/2023 PFT, compl ete No observ ation record ed. [address] [facility] [address] [facility], [place], [address], 11/23/2023 08:37:28 11/22/19 24 11/17/2023 PFT, compl ete No observ ation record ed. [address] [facility] [address] [facility], [place], [address], 11/23/2023 08:37:28 10/07/19 25 09/06/2024 US, kidne y No observ ation record ed. awychowski Not Available 10/09 09:10:52 10/08/19 25 05/13/2024 MRI, abdom en, w/wo contr ast No observ ation record ed. awychowski Not Available 10/09 09:10:53 11/05/19 25 11/05/2024 CT chest ldct lung progr am basel ine CHEST CT LOW DOSE SCREEN ING INDICA TION: Screen ing for lung cancer . Histor y of tony razo Visit type: Baseli ne COMPAR JOHN: CT chest dated 11/03/19 TECHNI QUE: Low-do se helica l CT of the chest withou t IV contra st (Adult Lung Cancer Screen ing) protoc ol was perfor med. Sagitt al and luna l reform ats were obtain ed. Weight -based protoc ol using automa tic tube modula tion was used to optimi ze exposu re parame ters. RADIAT ION DOSE PARAME TERS: CTDIvo l Body: 3.83 mGy, DLP Body: 130 mGy*cm . FINDIN GS: LUNG NODULE S: RIGHT LUNG: No right lung nodule . LEFT LUNG: No left lung nodule . OTHER FINDIN GS: Trache a and Mainst em Bronch i: Normal . Lungs and Pleura : The lungs are clear. No pneumo thorax or pleura l effusi on. Medias tinum and Lymph nodes: No large lymph nodes. Normal cardia c size. No perica rdial effusi on. Luna ry artery calcif icatio n: Mild Chest wall and Soft tissue s: Normal . Bones: No focal abnorm ality. Visual ized Upper Abdome n: No worris ome incide ntal abnorm ality. Prior gastri c surger y. IMPRES KIKI: PULMON MILDRED NODULE S: 1. No lung nodule . LUNG-R ADS CATEGO RY 1. Contin ue low-do se screen ing CT 12 months . OTHER FINDIN GS: 1. No worris ome incide ntal abnorm ality. Catego rizati on based on Lung-R ADS 2021 criter ia. https: //[email or web address] /Lung- RADS/L elvira-RA [email or web address].pdf WSN: [id number] Orderi ng Physic maryann: Lamberto Hart Dictat ed By: Prudencio Brown MD Dictat ed Date/T dale: 8:04 pm Review ed By: Prudencio Brown MD Signed By: Prudencio Brown MD Signed Date/T dale: 8:04 pm Transc ribed By: RIZWANA Transc ribed Date/T dale: 12:15 pm Patien t Class: Outpat ient [facility] (Outpt Imaging) [address] [place], [address], 11/07/2024 16:21:52 11/08/19 25 11/08/2024 MAMMO , scree anderson, digit al, bilat eral PROCED URE: MM Digita l Mammo Screen ing INDICA TION: Screen ing for breast cancer . COMPAR JOHN: 016 TECHNI QUE: Full-f ield digita l CC and MLO 3D tomosy nthesi s images of both breast s were acquir ed. Comput er-aid ed detect ion (CAD) was utiliz ed in the interp retati on of this study. DENSIT Y: There are scatte red areas of fibrog landul ar densit y. FINDIN GS: No suspic ious masses , suspic ious microc alcifi cation s, or areas of na ectura l distor tion are seen in either breast to sugges t malign andrea. IMPRES KIKI: No mammog raphic eviden ce of malign andrea. RECOMM ENDATI ON: Annual mammog raphic screen ing BI-RAD S: 1 (Negat macey) Lay letter mailed to diana t WSN: [id number] Orderi ng Physic maryann: Lamberto Hart Dictat ed By: Maria G Urrutia MD Dictat ed Date/T dale: 12:21 pm Review ed By: Maria G Urrutia MD Signed By: Maria G Urrutia MD Signed Date/T dale: 12:21 pm Transc ribed By: RIZWANA Transc riptio n Date/T dale: 12:19 pm Birads : Diana t Class: Outpat ient [email or web address] [facility] (Outpt Imaging) [address] [place], [address], 11/08/2024 14:06:39 11/08/19 25 11/08/2024 MAMMO , scree anderson, bilat eral No observ ation record ed. [facility] [address] , [place], [address], 11/08/2024 14:07:23 Result Notes Documentation Provider Name and Address Organization Details Recorded Time Ct, Chest, W/ Contrast : CT Chest W/ Contrast INDICATION: Reason: R05.3 CHRONIC COUGH; Clinical Question(s): Other: TECHNIQUE: Helical CT scan of the chest with IV contrast, formatted in 3 planes. 75 cc of Omnipaque 300 was administered intravenously. Weight-based protocol was performed using automatic exposure control. CTDIvol Body: 10.66 mGy, DLP Body: 395 mGy*cm. COMPARISON: Correlation with chest radiograph 10/22/2023. FINDINGS: Rn Integrity view findings, lines and tubes: None. Trachea and airways: Patent without evidence of tracheal or endobronchial lesion. Lungs and pleura: Clear lungs. No effusion or pneumothorax. Mediastinum and rubi: No mass or hematoma. No mediastinal or hilar lymphadenopathy. No esophageal abnormality. Partially imaged thyroid is unremarkable. Heart: Heart is normal in size. No pericardial effusion. Aorta: No aortic aneurysm. Pulmonary arteries: Normal caliber. No evidence of pulmonary embolism on this study performed without angiographic technique. Chest wall soft tissues: No acute abnormality. Diaphragm: Intact. Upper abdomen: Status post cholecystectomy. Postsurgical changes to the stomach are partially imaged. Bones: No acute abnormality. IMPRESSION: No acute abnormality. WSN: [id number] Ordering Physician: Lakeisha Gómez Dictated By: Riri Carter MD Dictated Date/Time: 11/03/23 1:18 pm Reviewed By: Riri Carter MD Signed By: Riri Carter MD Signed Date/Time: 11/03/23 1:18 pm Transcribed By: RIZWANA Transcribed Date/Time: 11/03/23 1:14 pm Patient Class: Outpatient CAITLIN SWANSON [address], [address], [facility] 11/03/2023 14:03:34 Mammo, Screening, Digital, Bilateral : PROCEDURE: MM Digital Mammo Screening INDICATION: Screening for breast cancer. COMPARISON: 01/26/2016 TECHNIQUE: Full-field digital CC and MLO 3D tomosynthesis images of both breasts were acquired. Computer-aided detection (CAD) was utilized in the interpretation of this study. DENSITY: There are scattered areas of fibroglandular density. FINDINGS: No suspicious masses, suspicious microcalcifications, or areas of architectural distortion are seen in either breast to suggest malignancy. IMPRESSION: No mammographic evidence of malignancy. RECOMMENDATION: Annual mammographic screening BI-RADS: 1 (Negative) Lay letter mailed to patient WSN: [id number] Ordering Physician: Lamberto Lr Dictated By: Bahman Urrutia MD Dictated Date/Time: 11/08/24 12:21 pm Reviewed By: Bahman Urrutia MD Signed By: Bahman Urrutia MD Signed Date/Time: 11/08/24 12:21 pm Transcribed By: CSVilla Certified Physical Therapist Assistant Date/Time: 11/08/24 12:19 pm Birads: [facility] 11/08/[facility]24 14:06:39 Problems Name Problem SNOMED Code Status Onset Date Resolution Date Notes Provider Name and Address Organization Details Recorded Time 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 Not Available [facility] 3 18:52:09 Body mass index 30+ - obesity 909702238 Completed 07/26/2019 Lamberto Lr MD [address] [facility] [address], [place], [address] , [facility] 3 21:18:49 Tobacco dependen ce syndrome 20909162 Completed 07/19/2018 Lamberto Lr MD [address] [facility] [address], [place], [address] , [facility] 8 16:27:04 Acute vaginiti s 43750464 Completed 01/01/2016 Lamberto Lr MD [address] [facility] [address], [place], [address] , [facility] 6 13:17:10 [facility] 66327184 Completed 07/19/2018 Lamberto Lr MD [address] [facility] [address], [place], [address] , [facility] 8 16:26:57 Increase d liver function 22503380 Completed 07/12/2017 Lamberto Lr MD [address] [facility] [address], [place], [address] , [facility] 7 13:44:40 Anxiety state 242835754 Completed 201205/12/2014 RECORDED 02/08/20 13 1:40PM BY MIRTHA MIXON MA, ANNOTATI ON/GERMAN Lr MD [address], [place], [address] , [facility] 6 13:17:09 Suicide Completed 201205/12/2014 RECORDED 02/08/20 13 1:40PM BY MIRTHA MIXON MA, ANNOTATI ON/GERMAN Lr MD [address], [place], [address] , [facility] 6 13:17:10 Anxiety state 605627207 Completed 201204/15/2014 RECORDED 02/08/20 13 1:40PM BY MIRTHA MIXON MA, ANNOTATI ON/GERMAN Lr MD [address], [place], [address] , [facility] 6 13:17:09 Suicide Completed 201204/15/2014 RECORDED 02/08/20 13 1:40PM BY MIRTHA MIXON MA, ANNOTATI ON/GERMAN Lr MD [address], [place], [address] , [facility] 6 13:17:10 Adult health examinat ion Completed 201205/12/2014 RECORDED 04/01/20 13 9:20AM BY JOSSY SHAH I, POLI ON/GERMAN Lr MD [address], [place], [address] , [facility] 6 13:17:10 Pre-surg arnulfo evaluati on Completed 201205/12/2014 IMPRESSI ON: PATIENT IS AT LOW RISK FOR CARDIOPU LMONARY COMPLICA TIONS WITH PLANNED PROCEDUR E BASED ON COMORBID ITIES, GOOD EXERTION AL TOLERANC E AND OVERALL PROCEDUR E RISK. PT ADVISED TO AVOID ASPIRIN AND NSAIDS FOR 7 DAYS PRIOR. MEDICALL Y STABLE/C LEARED TO PROCEED WITH SURGERY PLANNED. ; RECORDED 04/01/20 13 9:20AM BY POLI SAHNI ON/GERMAN Lr MD [address] [facility] [address], [place], [address] , [facility] 6 13:17:10 Administ ration of diphther ia and tetanus vaccine Completed 201205/12/2014 RECORDED 04/01/20 13 9:20AM BY POLI SAHNI ON/GERMAN Lr MD [address] [facility] [address], [place], [address] , [facility] 6 13:17:10 Adult health examinat ion Completed 201204/15/2014 RECORDED 04/01/20 13 9:20AM BY POLI SAHNI ON/GERMAN Lr MD [address] [facility] [address], [place], [address] , [facility] 6 13:17:10 Pre-surg arnulfo evaluati on Completed 201204/15/2014 IMPRESSI ON: PATIENT IS AT LOW RISK FOR CARDIOPU LMONARY COMPLICA TIONS WITH PLANNED PROCEDUR E BASED ON COMORBID ITIES, GOOD EXERTION AL TOLERANC E AND OVERALL PROCEDUR E RISK. PT ADVISED TO AVOID ASPIRIN AND NSAIDS FOR 7 DAYS PRIOR. MEDICALL Y STABLE/C LEARED TO PROCEED WITH SURGERY PLANNED. ; RECORDED 04/01/20 13 9:20AM BY POLI SAHNI ON/GERMAN Lr MD [address] [facility] [address], [place], [address] , [facility] 6 13:17:10 Administ ration of diphther ia and tetanus vaccine Completed 201204/15/2014 RECORDED 04/01/20 13 9:20AM BY POLI SAHNI ON/ADDEN DUM Lamberto Lr MD [address] [facility] [address], [place], [address] , [facility] 6 13:17:10 Neurosis 287255116 Completed 201205/12/2014 RECORDED 04/16/20 13 9:17AM BY POLI BUCK ON/ADDEN DUM Lamberto Lr MD [address] [facility] [address], [place], [address] , [facility] 6 13:17:09 Neurosis 500335077 Completed 201204/15/2014 RECORDED 04/16/20 13 9:17AM BY POLI BUCK ON/ADDEN DUM Lamberto Lr MD [address] [facility] [address], [place], [address] , [facility] 6 13:17:09 Anemia 075414943 Completed 201207/19/2018 IMPRESSI ON: CHRONIC/ STABLE POST GASTRIC BYPASS. Lamberto Lr MD [address] [address], [place], [address] , [facility] 8 16:00:23 Dysthymi a 98927805 Completed 201207/12/2017 STORY: EFRA Lr MD [address] [facility] [address], [place], [address] , [facility] 7 13:40:03 Tobacco user 106927349 Completed 201207/19/2018 Lamberto Lr MD [address] [facility] [address], [place], [address] , [facility] 8 15:48:19 History of clinical finding in subject 526795222 Completed 201212/12/2014 RECORDED 05/03/20 13 1:47PM BY MIRTHA MIXON MA, ANNOTATI ON/GERMAN Lr MD [address] [facility] [address], [place], [address] , [facility] 6 13:17:10 Tobacco user [id number] Completed 201204/15/2014 RECORDED 05/03/20 13 1:47PM BY MIRTHA MIXON MA, ANNOTATI ON/ADDEN DUM Lamberto Lr MD [address] [facility] [address], [place], [address] , [facility] 8 15:48:19 Migraine 25719627 Active 2012 Not Available [facility] 3 18:52:09 Kidney stone 12492053 Active 2012 PV UROLOGY Not Available [facility] 3 18:52:09 Obesity 104739179 Completed 201207/12/2017 IMPRESSI ON: POTENTIA L ADVERSE HEALTH CONSEQUE NCES DISCUSSE D. HEALTHIE R DIETARY AND EXRECISE HABITS ADVISED. ; RECORDED 05/03/20 13 2:05PM BY MIRTHA MIXON MA, OFFICE VISIT Lamberto Lr MD [address] [facility] [address], [place], [address] , [facility] 7 13:39:16 Epilepsy 74059784 Completed 201207/12/2017 STORY: JUVENILE MYOCLONI C-DR MARY PINEDA ([facility]); IMPRESSI ON: STABLE, FOLLOWED /MANAGED BY NEURO.; RECORDED 05/03/20 13 2:05PM BY MIRTHA MIXON MA, OFFICE VISIT Lamberto Lr MD [address] [facility] [address], [place], [address] , [facility] 7 13:39:26 Chronic sinusiti s 57692735 Completed 201204/15/2014 IMPRESSI ON: HAS ONE MORE DAY OF LEVAQUIN , WAS STILL WITH SINUS HEADACHE UNTIL TODAY, IF HEADACHE RETURNS MAY FILL PREDNISO NE(NOTIF Y OFFICE IF TENDON PAIN), AND SHE KNOWS THAT IF SHE DOES NOT GET RELIEF WILL NEED TO SEE ENT,; RECORDED 05/03/20 13 1:47PM BY MIRTHA MIXON MA, ANNOTATI ON/ADDEN DUM Lamberto Lr MD [address] [facility] [address], [place], [address] , [facility] 6 13:17:10 Vitamin D deficien cy 01255242 Active 2012 Not Available [facility] 3 18:52:09 Chronic sinusiti s 50255432 Completed 201212/12/2014 RECORDED 05/14/20 13 9:47PM BY LAMBERTO Welch MD, PHONE ENCOUNTE R Lamberto Lr MD [address] [facility] [address], [place], [address] , [facility] 6 13:17:09 Single major depressi ve episode Completed 201307/19/2018 Lamberto Lr MD [address] [facility] [address], [place], [address] , [facility] 8 16:27:34 Hypercho lesterol emia 08043259 Active 2015 Not Available [facility] 3 18:52:09 Chronic pancreat itis 272685937 Completed 201607/19/2017 Lamberto Lr MD [address] [facility] [address], [place], [address] , [facility] 5 15:05:33 History of pancreat itis 13304409184 107 Active 2016 Not Available [facility] 3 18:52:09 Reactive gastriti s 024585758 Active 2017 Not Available [facility] 3 18:52:09 Iron deficien cy anemia 62561334 Active 2017 Not Available [facility] 3 18:52:09 Essentia l hyperten kiki 79645625 Active 2017 Not Available [facility] 3 18:52:09 Chronic constipa tion 325516470 Active 2017 Not Available [facility] 3 18:52:09 Major depressi on in partial remissio n 07989560 Active 2017 Not Available [facility] 3 18:52:09 Generali zed anxiety disorder 55870095 Active 2017 Not Available [facility] 3 18:52:09 Disorder of cervical spine 596699861 Active 2017 C3/C4 right neurofor aminal stenosis Not Available [facility] 3 18:52:09 Adhesive capsulit is of shoulder 920860310 Completed 201807/26/2019 Lamberto Lr MD [address], [place], [address] , [facility] 9 11:15:51 Divertic ular disease 848104612 Active 2018 Not Available [facility] 3 18:52:09 Disorder followin g viral disease 420113532 Completed 201807/26/2019 Lamberto Lr MD [address], [place], [address] , [facility] 9 11:15:28 Intussus ception of intestin e 42109941 Completed 201809/12/2023 Lamberto Lr MD [address], [place], [address] , [facility] 3 09:37:46 Distorte d body image 30899965 Completed 202009/12/2023 Lamberto Lr MD [address], [address] , [facility] 3 15:16:08 History of bariatri c surgical procedur e 995573173 Active 2020 Not Available [facility] 3 18:52:09 Right lateral elbow tendinop athy 29272943787 9107 Completed 202109/12/2023 Lamberto Lr MD [address], [place], [address] , [facility] 3 09:48:34 Chronic pancreat itis 299147308 Completed 202110/07/2024 Lamberto Lr MD [address] [facility] [address], [place], [address] , [facility] 5 15:05:33 Brachial neuritis 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 Active 2021 Not Available [facility] 3 18:52:09 Body mass index 30+ - obesity 525780163 Active 2022 Lamberto Lr MD [address], [place], [address] , [facility] 3 21:18:48 Dizzines s 516967468 Active 2023 Rg Huang, PASUP [address] [facility] [address], [place], [address] , [facility] 4 15:48:31 Pain of bilatera l knee joints 60477431348 4104 Active 2023 Rg Huang PASUP [address] [facility] [address], [place], [address] , [facility] 4 15:49:00 Benign paroxysm al position al vertigo 192215866 Active 2023 Rg Huang PASNATALIE [address] [facility] [address], [place], [address] , [facility] 4 09:58:34 Pneumoni a 857586157 Completed 202310/09/2024 Lamberto Lr MD [address] [facility] [address], [place], [address] , [facility] 5 09:08:57 Cough 39948791 Active 2023 FABI Norwood [address] [address], [place], [address] , [facility] 4 14:58:12 COVID-19 535470703 Completed 202310/07/2024 Lamberto Lr MD [address] [address], [place], [address] , [facility] 5 14:31:17 Mild persiste nt asthma 363250738 Active 2024 Lamberto Lr MD [address] [address], [place], [address] , [facility] 5 15:07:42 Cyst of pancreas 58517439 Active 2024 likely IPMNs, needs 1 year follow up Lamberto Lr MD [address] [facility] [address], [place], [address] , [facility] 5 09:10:33 Calcific ation of coronary artery 701386372 Active 2024 Lamberto Lr MD [address] [address], [place], [address] , [facility] 5 19:51:04 Moderate persiste nt asthma 090175435 Active 2024 Carla randhawa, [facility] 5 10:07:24 Uncompli cated moderate persiste nt asthma 205438224 Active 2024 Lamberto Lr MD [address] [address], [place], [address] , [facility] 5 07:00:06 Problem Notes None recorded. Procedures Surgical History Date Name Laterality Status Provider Name and Address Organization Details Recorded Time 11/08/19 25 Most Recent Mammogram completed Eva Suarez [facility] 11/08/2024 14:06:28 11/08/19 25 Mammogram Screening completed Eva Suarez [facility] 11/08/2024 14:06:12 12/25/19 24 endoscopy and biopsy of upper gastrointestinal tract completed Lamberto Lr MD [address] [facility], [place], [address], [facility] 12/27/2023 11:19:52 01/14/20 21 Orthopedic Surgery completed Mirtha Mixon MA [facility] 05/27/2021 13:28:04 01/14/20 21 Shoulder joint surgery completed Lamberto Lr MD [address] [facility] [address] [place] [address], [address], [facility] 05/27/2021 14:04:41 12/19/19 21 shoulder injection completed Lamberto Lr MD [address] [facility] [address] [place] [address], [address], [facility] 12/30/2020 09:02:05 06/22/20 18 Cerumen Removal completed Lamberto Lr MD [address], [address], [facility] 06/22/2018 10:51:46 09/06/20 17 Egd diagnostic brush wash completed Lamberto Lr MD [address], [address], [facility] 10/27/2017 12:53:36 01/01/20 16 Date of Last Pap Smear completed Mirtha Mixon MA [facility] 07/19/2018 15:24:07 02/07/20 10 Cholecystectomy completed Mirtha Mixon MA [facility] 05/27/2021 13:28:04 03/05/20 08 Tonsillectomy completed Mirtha Mixon MA [facility] 05/27/2021 13:28:03 09/13/20 03 Bariatric Surgery completed Mirtha [place], [facility] 05/27/2021 13:28:04 09/01/20 03 Gastric Bypass completed Lamberto Lr MD [address], [place], [address], [facility] 07/26/2019 11:25:57 09/13/19 95 Hysterectomy completed Mirtha Mixon MA [facility] 05/27/2021 13:28:03 09/13/19 95 Appendectomy completed Mirtha Mixon [facility] 05/27/2021 13:28:04 09/05/19 92 Dilation and Curettage completed Mirtha Mixon MA [facility] 05/27/2021 13:28:03 Hysterectomy completed Mirtha Mixon [facility] 05/27/2021 13:28:[address] [facility] 07/26/2019 10:49:25 Imaging Results None recorded. Procedure Notes None recorded. Medical Equipment None Reported. Allergies Allergen ID Allergen Name Allergen Category Reaction Reaction Severity Criticality Documentation Date Start Date Code Code System Note Provider Name and Address Organization Details Recorded Time 19916 verapamil medicatio n other mild Not available 05/08/2018 66147 RxNorm const ipati on Lamberto Lr MD [address], [place], [address], [facility] 8 14:12:19 88814 propranol ol medicatio n other Not available Not available 05/08/2018 8787 RxNorm depre ssion Lamberto Lr MD [address], [place], [address], [facility] 8 14:12:42 36977 Topamax medicatio n Not available Not available Not available 07/19/2018 78529 3 RxNorm madelyn ce probl ems and pares thesi a Lamberto Lr MD [address], [place], [address], [facility] 8 15:56:10 5208 phenobarb ital medicatio n Not available Not available Not available 04/15/20142012 8134 RxNorm REACT ION: ANGIO EDEMA Lamberto Lr MD [address] [facility] [address], [facility] [address], [facility] 7 13:34:17 Medications Name Sig Start Date Stop Date Status Note LastModified by Organization Details LastModified Time magic mouthwash SWISH AND SWALLOW 5ML BY MOUTH EVERY 2 HOURS NEEDED FOR PAIN 05/05 completed Not Available Not Available Not Available d3-1000 1000 unit caps 06/07 completed Not Available Not Available Not Available compound drug 05/05 completed Not Available Not Available Not Available clonazepa m 1 mg tabs active Not Available Not Available Not Available escitalop marcela oxalate 20 mg tabs 1.5 tablets by mouth daily 07/19 completed Not Available Not Available Not Available lamotrigi ne 200 mg tabs 1.5 tablets daily 06/22 completed Not Available Not Available Not Available verapamil ER (SR) 120 mg tablet,ex tended release Take 1 tablet every day by oral route for 30 days. 10/27 completed Not Available Not Available Not Available amoxicill in 500 mg capsule 01/09 completed Not Available Not Available Not Available lamotrigi ne 150 mg tablet Take by oral route for 90 days. 06/22 completed Not Available Not Available Not Available metformin 500 mg tablet TAKE 1 TABLET BY MOUTH TWICE A DAY WITH MEALS 09/12 completed Not Available Not Available Not Available acetic acid 2 % ear solution TAKE 4 DROPS (OTIC (EAR)) 3 TIMES PER DAY FOR 5 DAYS 09/18 completed Not Available Not Available Not Available lamotrigi ne 200 mg tablet TAKE 2 TABLETS BY MOUTH AT BEDTIME 11/04 completed Not Available Not Available Not Available nicotine 14 mg/24 hr daily transderm al patch Apply 1 patch every day by transder mal route. 12/28 completed Not Available Not Available Not Available clindamyc in HCl 300 mg capsule 06/07 completed Not Available Not Available Not Available dextroamp hetamine sulfate 5 mg tablet Take 1 tablet 3 times a day by oral route as directed for 30 days. 04/01 completed Not Available Not Available Not Available azithromy jossy 250 mg tablet TAKE 2 TABLETS (500 MG) BY ORAL ROUTE ONCE DAILY FOR 1 DAY THEN 1 TABLET (250 MG) BY ORAL ROUTE ONCE DAILY FOR 4 DAYS 10/07 completed Not Available Not Available Not Available ibuprofen 800 mg tablet 06/07 completed Not Available Not Available Not Available tizanidin e 4 mg tablet Take 1 tablet every 8 hours by oral route as needed for 5 days. 12/28 completed Not Available Not Available Not Available fluconazo le 150 mg tablet TAKE 1 TABLET BY MOUTH ONCE DAILY NEEDED 01/10 completed Not Available Not Available Not Available benzonata te 200 mg capsule Take 1 capsule 3 times a day by oral route as directed for 10 days. 10/07 completed Not Available Not Available Not Available hydrocodo ne 5 mg-acetam inophen 325 mg tablet 12/28 completed Not Available Not Available Not Available sucralfat e 1 gram tablet 10/27 completed Not Available Not Available Not Available promethaz ine 12.5 mg tablet Take 1 tablet 3 times a day by oral route as needed for 5 days. 09/18 completed Not Available Not Available Not Available naltrexon e 50 mg tablet Take 1 tablet every day by oral route for 30 days. 09/05 completed Not Available Not Available Not Available Paxil 20 mg tablet DAILY 05/03 completed RECORDED 05/03/20 13 2:05PM BY MIRTHA MIXON MA, OFFICE VISIT; Not Available Not Available Not Available ondansetr on HCl 4 mg tablet Take by oral route for 2 days. 05/27 completed Not Available Not Available Not Available prednison e 20 mg tablet TAKE 2 TABLETS BY MOUTH EVERY DAY FOR 5 DAYS 11/01 completed Not Available Not Available Not Available dextroamp hetamine- amphetami ne 10 mg tablet Take 1 tablet every day by oral route for 30 days. 09/06 completed Not Available Not Available Not Available clonazepa m 1 mg tablet Take 1 tablet every day by oral route as directed for 21 days. 01/09 completed Not Available Not Available Not Available Debrox 6.5 % ear drops INSTILL 5 DROPS INTO AFFECTED EAR(S) BY OTIC ROUTE 2 TIMES PER DAY as needed 07/19 completed Not Available Not Available Not Available moxifloxa jossy 400 mg tablet DAILY 05/21 completed RECORDED 05/21/20 13 11:54AM BY LAMBERTO eWlch MD, MEDICATI ON AUTO-OZZIE CTIVATIO N; Not Available Not Available Not Available Excedrin Migraine 250 mg-250 mg-65 mg tablet Take 2 tablets every 4-6 hours by oral route as needed for 30 days. 05/14 completed Not Available Not Available Not Available clindamyc in HCl 150 mg capsule 06/07 completed Not Available Not Available Not Available penicilli n V potassium 500 mg tablet 04/01 completed Not Available Not Available Not Available topiramat e 25 mg tablet Take by oral route for 30 days. 05/05 completed Not Available Not Available Not Available meclizine 12.5 mg tablet TAKE 1 TABLET BY MOUTH THREE TIMES A DAY DIRECTED FOR 10 DAYS NOT COVERED 09/18 completed Not Available Not Available Not Available chlorthal idone 25 mg tablet TAKE 1 TABLET BY MOUTH EVERY DAY 2024 active Not Available Not Available Not Avai lable ciproflox acin 250 mg tablet Take 1 tablet every 12 hours by oral route for 3 days. 05/05 completed Not Available Not Available Not Available hydrocodo ne 10 mg-acetam inophen 325 mg tablet 06/07 completed Not Available Not Available Not Available omeprazol e 40 mg capsule,d elayed release TAKE 1 CAPSULE BY MOUTH EVERY DAY 2024 active Not Available Not Available Not Avai lable amoxicill in 875 mg tablet 10/27 completed Not Available Not Available Not Available hydromorp abisai 2 mg tablet 10/27 completed Not Available Not Available Not Available gentamici n 0.3 % eye drops active Not Available Not Available No t Available trazodone 100 mg tablet TAKE 1 TABLET BY MOUTH EVERYDAY AT BEDTIME active Not Available Not Available No t Available benzonata te 100 mg capsule 05/05 completed Not Available Not Available Not Available doxycycli ne monohydra te 100 mg capsule TAKE 1 CAPSULE BY MOUTH TWICE A DAY FOR 7 DAYS 11/01 completed Not Available Not Available Not Available ferrous sulfate 325 mg (65 mg iron) tablet TAKE 1 TABLET BY MOUTH EVERY DAY active Not Available Not Available No t Available prednison e 50 mg tablet DAILY 04/21 completed RECORDED 05/03/20 13 10:12AM BY ALTHEA DICKEY PA-C, MEDICATI ON AUTO-OZZIE CTIVATIO N; Not Available Not Available Not Available propranol ol ER 80 mg capsule,2 4 hr,extend ed release Take 1 capsule every day by oral route. 05/08 completed Not Available Not Available Not Available nicotine 21 mg/24 hr daily transderm al patch Apply 1 patch every day by transder mal route. 07/19 completed Not Available Not Available Not Available ibuprofen 200 mg tablet EVERY EIGHT HOURS, NEEDED 04/21 completed RECORDED 05/03/20 13 10:12AM BY ALTHEA DICKEY PA-C, MEDICATI ON AUTO-OZZIE CTIVATIO N; Not Available Not Available Not Available omeprazol e 20 mg capsule,d elayed release Take 1 capsule every day by oral route as directed for 90 days. 04/23 completed Not Available Not Available Not Available verapamil ER (SR) 240 mg tablet,ex tended release Take 1 tablet every day by oral route for 30 days. 04/23 completed Not Available Not Available Not Available codeine 10 mg-guaife nesin 100 mg/5 mL oral liquid Take 10 mL every 4 hours by oral route as directed for 5 days. 10/07 completed Not Available Not Available Not Available gabapenti n 100 mg capsule Take 1 capsule 3 times a day by oral route for 30 days. 07/05 completed Not Available Not Available Not Available ergocalci ferol (vitamin D2) 1,250 mcg (50,000 unit) capsule TAKE 1 CAPSULE BY MOUTH EVERY WEEK FOR 84 DAYS active Not Available Not Available No t Available Tylenol-C odeine #3 300 mg-30 mg tablet EVERY SIX HOURS, NEEDED 04/07 completed RECORDED 04/08/20 13 9:16AM BY LAMBERTO Welch MD, MEDICATI ON AUTO-OZZIE CTIVATIO N; Not Available Not Available Not Available ibuprofen 600 mg tablet THREE TIMES DAILY 04/18 completed RECORDED 05/03/20 13 10:12AM BY ALTHEA DICKEY PA-C, MEDICATI ON AUTO-OZZIE CTIVATIO N; Not Available Not Available Not Available levofloxa jossy 500 mg tablet DAILY 04/18 completed RECORDED 05/03/20 13 10:12AM BY ALTHEA DICKEY PA-C, MEDICATI ON AUTO-OZZIE CTIVATIO N; Not Available Not Available Not Available albuterol sulfate HFA 90 mcg/actua tion aerosol inhaler INHALE 2 PUFFS BY MOUTH EVERY 4 HOURS NEEDED 2024 active Not Available Not Available Not Avai lable fluticaso ne propionat e 50 mcg/actua tion nasal spray,ed[facility] pension SPRAY 2 SPRAYS INTRANAS ALLY DAILY active Not Available Not Available No t Available lamotrigi ne 100 mg tablet Take 1 tablet every day by oral route for 90 days. 05/05 completed Not Available Not Available Not Available dextroamp hetamine- amphetami ne 5 mg tablet Take 1 mg as needed by oral route for 30 days. 05/28 completed Not Available Not Available Not Available naproxen 500 mg tablet TAKE 1 TABLET BY MOUTH TWO TIMES A DAY FOR 5 DAYS 05/27 completed Not Available Not Available Not Available amoxicill in 875 mg-potass ium clavulana te 125 mg tablet TAKE 1 TABLET BY MOUTH TWICE A DAY FOR 10 DAYS 01/10 completed Not Available Not Available Not Available nicotine 7 mg/24 hr daily transderm al patch Apply 1 patch every day by transder mal route. 12/28 completed Not Available Not Available Not Available oxycodone 5 mg tablet Take by oral route for 7 days. 05/27 completed Not Available Not Available Not Available Ascomp with Codeine 30 mg-50 mg-325 mg-40 mg capsule active Not Available Not Available Not Available cholecalc iferol (vitamin D3) 25 mcg (1,000 unit) capsule TAKE 1 CAPSULE BY MOUTH EVERY DAY 07/05 completed Not Available Not Available Not Available escitalop marcela 10 mg tablet TAKE 1 TABLET BY MOUTH EVERY DAY 07/05 completed total 30MG Not Available Not Available Not Available escitalop marcela 20 mg tablet TAKE 1 TABLET BY MOUTH EVERYDAY AT BEDTIME active Not Available Not Available No t Available atomoxeti ne 25 mg capsule 05/05 completed Not Available Not Available Not Available atomoxeti ne 40 mg capsule 05/05 completed Not Available Not Available Not Available zonisamid e 25 mg capsule TAKE 1 CAPSULE BY MOUTH AT BEDTIME. 09/12 completed Not Available Not Available Not Available topiramat e 50 mg tablet 05/05 completed Not Available Not Available Not Available nitrofura ntoin monohydra te/macroc rystals 100 mg capsule Take 1 capsule every 12 hours by oral route for 7 days. 05/05 completed Not Available Not Available Not Available hydrocodo ne-acetam inophen TWO TIMES DAILY, NEEDED 05/10 completed RECORDED 05/14/20 13 3:20PM BY LAMBERTO Welch MD, MEDICATI ON AUTO-OZZIE CTIVATIO N; Not Available Not Available Not Available cholecalc iferol (vitamin D3) 25 mcg (1,000 unit) tablet TAKE 1 TABLET BY MOUTH EVERY DAY 01/10 completed Not Available Not Available Not Available Symbicort 160 mcg-4.5 mcg/actua tion HFA aerosol inhaler Inhale 2 puffs twice a day by inhalati on route as directed for 30 days. 2023 active Not Available Not Available Not Avai lable diclofena c 1 % topical gel APPLY 1-2 GRAMS TWICE A DAY. NOT TO EXCEED 16 GRAMS A DAY 09/12 completed Not Available Not Available Not Available lamotrigi ne ER 200 mg tablet,ex tended release 24 hr TAKE 2 TABLETS (400 MG TOTAL) BY MOUTH AT BED TIME. active Not Available Not Available No t Available Vitamin D3 50 mcg (2,000 unit) capsule Take 1 capsule every day by oral route for 90 days. 2023 active Not Available Not Available Not Avai lable lamotrigi ne ER 300 mg tablet,ex tended release 24 hr TAKE 2 TABLETS BY MOUTH DAILY. 11/04 completed Not Available Not Available Not Available Creon 36,000 unit-114, 000 unit-180, 000 unit capsule,d elayed release Take 1 capsule 3 times a day by oral route. 03/21 completed Not Available Not Available Not Available Adult Aspirin Regimen 81 mg tablet,de layed release Take 1 tablet every day by oral route for 28 days. 05/27 completed Not Available Not Available Not Available Wixela Inhub 250 mcg-50 mcg/dose powder for inhalatio n INHALE 1 PUFF BY MOUTH EVERY 12 HOURS DIRECTED 11/11 completed Not Available Not Available Not Available Wixela Inhub 500 mcg-50 mcg/dose powder for inhalatio n INHALE 1 PUFF INTO THE LUNGS TWICE A DAY FOR 30 DAYS 2024 active Not Available Not Available Not Avai lable Flublok Quad (PF) 180 mcg (45 mcg x 4)/0.5 mL IM syringe PHARMACY ADMINIST ERETanvi 11/04 completed Not Available Not Available Not Available Vitals Date Recorded Body height Body mass index (BMI) Body weight Heart rate Oxygen saturation Oxygen saturation in Arterial blood by Pulse oximetry Body temperature Systolic And Diastolic Provider Name and Address Organization Details Last Updated DateTime 5 168.91 cm 33.9 kg/m2 11190.1 7 g 71 /min 99 % 99 % 97.7 [degF] 106/70 mm[Hg] [facility] 14:06:58 Date Recorded Body height Body mass index (BMI) Body weight Heart rate Oxygen saturation Oxygen saturation in Arterial blood by Pulse oximetry Body temperature Systolic And Diastolic Provider Name and Address Organization Details Last Updated DateTime 4 168.91 cm 34.7 kg/m2 40884.1 4 g 66 /min 96 % 96 % 97.6 [degF] 126/70 mm[Hg] Humble lorenzana MA [facility] 4 09:36:52 Date Recorded Body height Body mass index (BMI) Body weight Heart rate Oxygen saturation Oxygen saturation in Arterial blood by Pulse oximetry Body temperature Systolic And Diastolic Provider Name and Address Organization Details Last Updated DateTime 5 168.91 cm 33.1 kg/m2 80492.2 1 g 68 /min 96 % 96 % 96.4 [degF] 117/70 mm[Hg[facility] 09:[facility]20 Date Recorded Heart rate Heart rate Heart rate Systolic And Diastolic Systolic And Diastolic Systolic And Diastolic Provider Name and Address Organization Details Last Updated DateTime 4 57 /min 68 /min 67 /min 112/88 mm[Hg] 112/84 mm[Hg] 108/86 mm[Hg] Masha López LPN [facility] 4 10:08:05 Date Recorded Body height Body mass index (BMI) Body weight Heart rate Oxygen saturation Oxygen saturation in Arterial blood by Pulse oximetry Body temperature Systolic And Diastolic Provider Name and Address Organization Details Last Updated DateTime 4 168.91 cm 33.2 kg/m2 98120.8 1 g 98 /min 98 % 98 % 97.3 [degF] 107/71 mm[Hg] Ann-Marie powers MA [facility] 4 09:40:03 Date Recorded Body height Provider Name an d Address Organization Details Last Updated DateTime 09/18/2024 168.91 cm Aury Beltran [facility] 09/18/2024 14:37:54 Social History Question Answer Notes LastModified by Organizat ion Details LastModified Time Tobacco Smoking Status Former Smoker quit 06/22/2023 Lamberto Lr MD [address], [address], [facility] 10/07/2024 14:56:35 Do You Have An Advance Directive? Yes HCP/Mom-P atricia [email or web address] Information not available 09/05/2022 Is Blood Transfusion Acceptable In An Emergency? Yes [id number] Information not available 08/04/2020 What Is Your Level Of Caffeine Consumption? Moderate Coffee/so da Information not available 10/07/2024 How Much Tobacco Do You Chew? None [id number] Information not available 08/04/2020 What Type Of Diet Are You Following? REGULAR Information not available 05/27/2021 Which Illicit Or Recreational Drugs Have You Used? None [id number] Information not available 08/04/2020 Education 4 Year College [email or web address] Information not available 09/05/2022 When Did You Quit Smoking? 1-5yearssinc elastcigaret te Information not available 05/27/2021 Live Alone Or With Others? Alone 1 Dog Information not available 10/07/2024 Do You Take Precautions To Prevent Distracted Driving? Yes Information not available 01/01/2016 How Often Do You Need To Have Someone Help You When You Read Instructions, Pamphlets, Or Other Written Material From Your Doctor Or Pharmacy? Never Information not available 01/01/2016 Have You Served In The ? No Information not available 07/12/2017 Have You Or Anyone In Your Household Had Any Of The Following Symptoms In The Last 14 Days: Sore Throat, Cough, Chills, Body Aches For Unknown Reasons, Shortness Of Breath For Unknown Reasons, Loss Of Smell, Loss Of Taste, Fever At Or Greater Than 100 Degrees Fahrenheit? No Information not available 05/05/2020 Are You Or Anyone In Your Household A Health Care Provider Or Emergency Responder? No Information not available 05/05/2020 To The Best Of Your Knowledge Have You Been In Close Proximity To Any Individual Who Tested Positive For COVID-19? No Information not available 05/05/2020 *AWV ONLY* Are You Presently Prescribed Opioid Medication By PCP Or Specialist? If YES -Provider Assess The Benefit For Other, Non-opioid Pain Therapies Instead, Even If The Patient Does Not Have OUD But Is Possibly At Risk. No Information not available 05/27/2021 Have You Recently Traveled To A COVID-19 High Risk Area Or Gathering In The Last 10 Days? No Information not available 05/27/2021 What Was The Date Of Your Most Recent Tobacco Screening? 10/07/2024 Information not available 10/07/2024 How Many Children Do You Have? 0 Information not available 05/27/2021 What Is Your Current Pack Years? 30ormorepack years [email or web address] Information not available 09/05/2022 Do You Use Protection During Sex? No Information not available 05/27/2021 Do You Use Your Seat Belt Or Car Seat Routinely? Yes Information not available 05/27/2021 Seat Belts Used Routinely Yes Information not available 09/05/2022 Are You Sexually Active? No [id number] Information not available 08/04/2020 Smoke Alarm In Home Yes [email or web address] Information not available 09/05/2022 Do You Have Smoke And Carbon Monoxide Detectors In Your Home? Yes Information not available 05/27/2021 At What Age Did You Start Smoking Tobacco? 11 [id number] Information not available 08/04/2020 Are You Passively Exposed To Smoke? No Information not available 07/26/2019 How Much Tobacco Do You Smoke? 1 PPD Information not available 05/27/2021 Do You Use Sunscreen Routinely? Yes [id number] Information not available 08/04/2020 How Many Years Have You Smoked Tobacco? 13 Information not available 05/27/2021 Sex: Unknown Functional Status Question Answer Note LastModified by Organizat ion Details LastModified Time Do you use any illicit or recreational drugs? No [email or web address] Information not available 09/05/2022 Do you or have you ever used any other forms of tobacco or nicotine? No [email or web address] Information not available 09/05/2022 What is your level of alcohol consumption? None [id number] Information not available 08/04/2020 Do you or have you ever used smokeless tobacco? Never used smokeless tobacco [id number] Information not available 08/04/2020 Are you currently employed? Yes [id number] Information not available 08/04/2020 Are you able to walk independently without assistance or assistive devices? YESWOREST [email or web address] Information not available 09/05/2022 Are you able to care for yourself independently? 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 Never used electronic cigarettes [email or web address] Information not available 09/05/2022 What is your exercise level? Moderate Information not available 05/27/2021 Mental Status None recorded. Family History Relationship Description Onset Age of this Age Resolved Age Notes LastModified by Organization Details LastModified Time Paternal Grandmother Diabetes mellitus [email or web address] Not available 08:15:59 Paternal Uncle Diabetes mellitus abolcun Not available 2020 13:27:48 Father Diabetes mellitus abolcun Not available 2020 13:27:48 Father Heart disease [email or web address] Not available 08:15:59 Father Harmful pattern of use of alcohol abolcun Not available 2020 13:27:48 Maternal Grandfather Heart disease [email or web address] Not available 08:15:59 Maternal Grandfather Heart disease abolcun Not available 2020 13:27:48 Maternal Uncle Heart disease abolcun Not available 2018 10:48:45 Mother Tachycardia [email or web address] Not avai lable 09/05/2022 12:32:14 Mother Transient cerebral ischemia 78 [email or web address] Not available 10/07 14:44:51 Maternal Aunt Dementia abolcun Not leilani ilable 05/27/2021 13:27:48 Maternal Aunt Alzheimer's disease abolcun Not available 2020 13:27:48 Medical History Condition Response Gout N Other N Kidney Stones Y Blood Diseases N Hyperthyroidism N Breast Cancer N Hypothyroidism N Lung Disease N Depression Y COPD N Defects or Inherited Disease N Anesthesia Complications N Headaches/Migraines Y Anxiety Disorder N Varicose Veins N Obesity Y Vision or Eye Problems N Arthritis N Head Injury/Concussion N Infertility N Polyps N Congenital Anomalies N Acid Reflux (GERD) Y Cancer N Stroke N ADHD N Endometriosis N High Cholesterol N Liver Disease N Fibromyalgia N Headaches Y Kidney Disease N Heart Problems N Ear or Hearing Problems N Hospitalizations N Thyroid Problems N GI Problems N Acne N Eating Disorder N Skin Problems N Anemia N Constipation N Bladder Problems N Mental Illness Y Diabetes N Ovarian Cancer N Blood Transfusions N Seizures/Epilepsy Y Tuberculosis N AIDS/HIV N Congestive Heart Failure (CHF) N Eczema N Abuse/Domestic Violence N Diverticulitis N Asthma N Allergies Y Reflux/GERD N Hepatitis N Pulmonary Embolism N Hypertension N Chicken Pox N Autism Spectrum Disorder (ASD) N Osteoporosis N Gynecological History Statement/Question Response Date of Last Pap Smear 01/01/2016 Date of Last Colonoscopy Most Recent Mammogram 11/08/2024 Most Recent Bone Density Obstetrics History GPAL:G 0 P 0 0 0 0 Immunizations Vaccine Type Date Status Note Provider Nam e and Address Organization Details Recorded Time Influenza, recombinant, quadrivalent, PF 07/11/20 20 completed Not Available [facility] 01/16/2023 18:52:09 COVID-19, mRNA, LNP-S, PF, 30 mcg/0.3 mL dose 10/29/19 21 completed Not Available [facility] 01/16/2023 18:52:09 COVID-19, mRNA, LNP-S, PF, 30 mcg/0.3 mL dose 11/19/19 21 completed Not Available [facility] 01/16/2023 18:52:09 Influenza, split virus, quadrivalent, PF 07/30/20 21 completed Not Available [facility] 01/16/2023 18:52:09 COVID-19, mRNA, LNP-S, PF, 30 mcg/0.3 mL dose 07/20/20 21 completed Not Available [facility] 01/16/2023 18:52:09 Influenza, split virus, quadrivalent, PF 07/05/20 22 completed Not Available [facility] 01/16/2023 18:52:09 zoster recombinant 08/16/20 23 completed EVELIO Leggett [facility] 11/01/2023 09:37:20 COVID-19, mRNA, LNP-S, bivalent, PF, 30 mcg/0.3 mL dose 09/14/20 22 completed EVELIO Leggett [facility] 11/01/2023 09:37:20 COVID-19, mRNA, LNP-S, PF, césar-sucrose, 30 mcg/0.3 mL 08/16/20 23 completed EVELIO Leggett [facility] 11/01/2023 09:37:20 Influenza, split virus, quadrivalent, PF 07/07/20 23 completed EVELIO Leggett [facility] 11/01/2023 09:37:20 Influenza, split virus, trivalent, PF 07/01/20 24 completed Julianne randhawa [facility] 07/04/2024 09:10:20 COVID-19, mRNA, LNP-S, PF, césar-sucrose, 30 mcg/0.3 mL 08/09/20 24 completed EVELIO Vitale [facility] 10/07/2024 13:57:17 Influenza, split virus, quadrivalent, PF 07/19/20 18 cancelled patient objection Not Available [facility] 10/19/2019 02:22:16 Influenza, split virus, quadrivalent, PF 07/26/20 19 cancelled patient objection Not Available [facility] 10/19/2019 02:22:09 Tdap 02/08/20 13 completed Not Available [facility] 01/16/2023 18:52:09 Past Encounters Encounter ID Performer Location Encounter Start Date Encounter Closed Date Diagnosis/Indication Diagnosis SNOMED-CT Code Diagnosis ICD10 Code Diagnosis IMO Codes Diagnosis Note [id number] auto[facility]Comm erce [address] [facility] [facility] [place] [address] 02/07/2013 00:00:00 [id number] autoEComm erce [address] [facility] [place] [address] 04/01/2013 00:00:00 [id number] autoEComm erce [address] [facility] [place] [address] 04/08/2013 00:00:00 [id number] autoEComm erce [address] [facility] [place] [address] 04/16/2013 00:00:00 [id number] autoEComm erce [address] [facility] [facility] [place] [address] 05/03/2013 00:00:00 [id number] Lamberto Lr MD Main Office [address] [place] [address] 12/12/2014 10:09:37 12/12/2014 11:25:24 Adult health examination [id number] Immunizati on status utd, pt declined flu and pneumovax. Will screen based on risk factors. Pt to schedule ob/gyn nurse f/u [place] for routine screening. Regular dental and ophtho care advised as well as seatbelt and sunscreen use. Distracted driving discussed. Body mass index 30+ - obesity [id number] Anemia [id number] Has history, no longer taking iron, will reassess. Vitamin D deficiency [id number] Tobacco de pendence syndrome [id number] Pt understand s potential [facility] health consequenc es. Was advised to call for assistance if desired when ready to quit. [id number] Lamberto Lr MD Main Office [address] [facility] [address] [facility] [place] [address] 01/01/2016 09:56:53 01/01/2016 11:20:59 Adult health examination 272540629 Z00.00 Immunizati on status utd, pt declined flu and pneumovax. Will screen based on risk factors. Pt to schedule ob/gyn nurse f/u [place] for routine screening. Regular dental and ophtho care advised as well as seatbelt and sunscreen use. Distracted driving discussed. Body mass index 30+ - obesity 984488933 Z68.31 Anemia 183777098 D64.9 Has history, no longer taking iron, will reassess. Vitamin D deficiency 347 30732 E55.9 Not on supplement . Will see if it needs to be resumed. Tobacco de pendence syndrome 69320661 F17.290 Pt understand s potential [facility] consequenc es. Was advised to call for assistance if desired when ready to quit. Palpitations 18527298 R0 0.2 ECG unremarkab le and symptoms non exertional . Will start with labs and reassess. 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 Will add on to other labs from today. [id number] Lamberto Lr MD Main Office [address] [facility] 207 [place] [address] 01/25/2016 08:10:20 01/25/2016 08:44:10 Palpitations 40736826 R00.2 ECG unremarkab le and symptoms non exertional and no longer occurring. WIll defer further evaluation at this time. Pt to call if recurrent. Hypercholesterolemia 136 37094 E78.0 Increased fiber intake and continued regular exercise and wt loss habits advised. Will follow with other labs in 3 months. Increased liver function 26591284 R94.5 Likely fatty liver. Reassess in 3 months and if persistent refer for imaging then. Vitamin D deficiency 347 96108 E55.9 Resume supplement and reassess level after 3 months of high dose repletion. [id number] Lora Phelps PA-C Main Office [address] [address] [address] [place] [address] 06/07/2017 10:18:05 06/07/2017 11:27:19 Epigastric pain 97122563 R10.13 Concern for stomach ulcer, H.Pylori gastritis, stomach bleed, ventral hernia. Get blood work to check for blood loss/anemi a. Multiple surgeries in the past. Overuse of NSAIDs. Advised to use as little as possible. Get abdominal CT . Trial Omeprazole 20 mg daily for 30 days. We will call with results. Go to the ER if pain worsens or new concerning symptoms for immediate evaluation . [id number] Lamberto Lr MD Main Office [address] [address] [address] [place] [address] 06/13/2017 08:08:08 06/13/2017 17:11:44 [id number] Lora Phelps PA-C Main Office [address] [address] [address] [place] [address] 06/13/2017 14:11:54 06/13/2017 15:18:52 Duodenitis 56065768 K29.80 needs furhter GI work up. Acute pancreatitis 97688 6007 K85.90 Acute on chronic pancreatit is with duodenitis . TRigger is possibly excessive NSAIDs. Pt. is clinically not improved since the discharge and requires too much pain medication . GI at [facility] ( DR. Allen) verbally consulted and recommends to have p. send back through the ER for rescreenin g for necrotizin g pancreatit is. Pt. refused to go back to [facility]. Will agree to go through [facility] ER. All [facility] notes are forwarded to [facility] for review. [id number] Lamberto Lr MD Main Office [address] [address] [address] [place] [address] 07/12/2017 12:54:53 07/12/2017 14:07:32 Adult health examination 440534638 Z00.00 Immunizati on status utd, pt declined flu and pneumovax. Will screen based on risk factors. Pt to schedule ob/gyn nurse f/u [place] for routine screening. Regular dental and ophtho care advised as well as seat belt and sunscreen use. Distracted driving discussed. Chronic pancreatitis 235 522259 K86.1 Symptoms improved. Will track down GI notes. Anemia 904432442 D64.9 Chronic post gastric bypass. Was told that po iron will not help. See what heme thinks. 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 Migraine 12400215 G43.90 9 Will see if verapamil helps and rule out SAMANTHA as a possible contributo r. Tobacco de pendence syndrome 09133254 F17.200 Pt understand s potential [facility] consequenc es. Was advised to call for assistance if desired when ready to quit. Palpitations 71063409 R0 0.2 Pt insists it's related to nicotine. Does not want help stopping. Vitamin D deficiency 347 15156 E55.9 Essential hypertension 12880511 I10 Will titrate vera[pimil as tolerated to goal symptom control. Hypercholesterolemia 136 94929 E78.01 Mild elevation. Based on current CVD risk score TLC advised. Snoring 17957987 R06.83 Has significan t comorbidit ies and risk factors for SDB. Will screen and refer for treatment if positive. [id number] Lamberto Lr MD Main Office [address] [address] [address] [address] 08/02/2017 11:45:14 08/02/2017 12:47:59 [id number] Lamberto Lr MD Main Office [address] [address] [address] [address] 09/11/2017 10:14:57 09/11/2017 12:52:34 [id number] Lamberto Lr MD Main Office [address] [address] [address] [place] [address] 10/27/2017 08:01:27 10/27/2017 09:03:21 Migraine 83332656 G43.909 Will titrate verapamil and follow this issue as well. History of pancreatitis 2898969709 9107 Z87.19 Asymptomat ic, will see if enzymes are still elevated. Need to track down recent EGD results. Vitamin D deficiency 347 29938 E55.9 Will verify adequate supplement ation. Essential hypertension 98921436 I10 Will titrate verapamil as tolerated to goal symptom control. Anemia 579605203 D64.9 Chronic post gastric bypass. Was told that po iron will not help. Did not see heme. Will reassess counts and depending on results revisit heme consult. Hypercholesterolemia 136 36524 E78.01 Mild elevation in the past. Will reassess and discuss mgt depending on CVD risk score. [id number] Lamberto Lr MD Main Office [address] [facility] [address] [facility] [place] [address] 11/27/2017 13:27:20 11/27/2017 14:31:14 Reactive gastritis 109808220 K29.60 Will resume PPI and start OTC antacids for short term relief while waiting for PPI to take effect. Essential hypertension 73662533 I10 Will start diuretic to see if BP responds. Migraines have not been as much of an issue. Iron defic iency anemia 33767350 D50.9 Being scheduled for irone infusion via heme. [id number] Lamberto Lr MD Main Office [address] [facility] [address] [facility] [place] [address] 12/21/2017 12:45:10 12/21/2017 13:24:12 Acute pharyngitis 191663277 J02.9 Tobacco user with purulent sputum. Will cover for atypicals. Reactive gastritis 09048 6001 K29.60 Good response to PPI. Ridge wean dose slowly. Essential hypertension 62458733 I10 Will check labs to verify lytes are normal with reported paresthesi as, and reduce diuretic dose beacause of orthostati c symptoms. Good hydration advised. If either issue persists may need differnt antihypert ensive. Anemia 240080428 D64.9 Chronic post gastric bypass. s/p iron infusion, will recheck levels. [id number] Lamberto Lr MD Main Office [address] [facility] [address] [facility] [place] [address] 04/23/2018 08:12:19 04/23/2018 08:47:48 Essential hypertension 26612872 I10 WIll d/c diuretic to see if needed and based on possible gout provocatio n. Will call with ambulatory BP reading and if >130/90 try ACEI. Reactive gastritis 17665 6001 K29.60 Good response to PPI. Will continue current dosing. Pain in toe 138394981 M7 9.674 ? if gout, has resolved without interventi on. Advised to call/come in if recurs. [id number] Lamberto Lr MD Main Office [address] [facility] [address] [facility] [place] [address] 06/22/2018 10:02:04 06/22/2018 11:18:28 Impacted cerumen 17044030 H61.23 Successful ly disimpacte d with lavage in office. Will try cerumenoly tic use regularly for prophylaxi s. Call if recurrent/ worse. Tobacco user 772098911 Z 72.0 Will try tapering. Discuss progress and other treatment options, if needed at f/u. [id number] Lamberto Lr MD Main Office [address] [facility] [address] [facility] [place] [address] 07/19/2018 14:52:19 07/19/2018 16:20:41 Adult health examination 956876430 Z00.00 Immunizati on status utd, pt declined flu and pneumovax. Will screen based on risk factors. Pt to schedule ob/gyn nurse f/u [facility] for routine screening. Regular dental and ophtho care advised as well as seat belt and sunscreen use. Distracted driving discussed. Essential hypertension 82394328 I10 Better control with improvemen t in [place]. Will increase dose and see if effective/ tolerated. Needs infl uenza immunization 584926996 Z23 Screening for malignant neoplasm of breast 482599916 Z12.39 Chronic pancreatitis 235 866849 K86.1 Symptoms improved. Will check labs. 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 No seizure activity in over 2 yrs. Remains on lamictal primarily for mood stabilizat ion now. Tobacco user 379351973 Z 72.0 Has stopped with patch. Needs lower dose to continue taper. Iron defic iency anemia 64758859 D50.9 Secondary to bariatric surgery and responded well to IV iron. Given constipati on will ask GI to consider colonoscop y. Spasm of c ervical paraspinous muscle 756982062 M62.838 Body mass index 30+ - obesity 139868652 Z68.31 Vitamin D deficiency 347 01095 E55.9 Level normal earlier this year. Will contineu current dosing. Obesity 803387306 E66.9 Hypercholesterolemia 136 31641 E78.01 Mild elevation in the past. Will reassess and discuss mgt depending on CVD risk score. Chronic constipation 236 818793 K59.09 Using laxative and enema and still having symptoms. Coupled to iron deficiency , colonoscop y is warranted. Major depr ession in partial remission 68438833 F32.4 Followed and managed by [facility] [id number] Lamberto Lr MD Main Office [address] [facility] [address] [place] [address] 12/28/2018 15:16:12 12/28/2018 16:57:20 Essential hypertension 95869909 I10 Well controlled on diuretic which is currently well tolerated. Continue current regimen. Chronic pancreatitis 235 863746 K86.1 WIll will if enzyme supplement ation helps mitigate symptoms. Iron defic iency anemia 82666772 D50.9 Secondary to bariatric surgery and responded well to IV iron. WIll follow. [id number] Lamberto Lr MD Main Office [address] [facility] [address] [place] [address] 03/21/2019 13:55:02 03/21/2019 15:21:05 Fatigue 01036427 R53.83 Ongoing fatigue since 03/18/19 ? d/t post viral syndrome - check labs sleep study 10.17 significan t effect on functionin g - not able to stay awake at work, etc - no sig help c caffeine/c offee/exce drin - trial c stimulant - start low (1 tab bid), slowly increase dose as neptali/as needed Iron defic iency anemia 25043215 D50.9 [id number] Lamberto Lr MD Main Office [address] [facility] [address] [place] [address] 04/01/2019 10:16:00 04/01/2019 12:06:18 Fatigue 77968337 R53.83 Persistent /worsening . EBV is possible but degree of symptoms raises concern for other possible neurologic or infectious disease etiology. Muscle weakness 48048052 M62.81 ? MG vs other neurologic disorder. Chill 23215302 R68.83 Screen for inflammato ry process. Infectious mononucleosis detected 398006015 B27.90 WIll ask ID if her symptoms severity is c/w EBV or if additional infectious evaluation is warranted. [id number] Lamberto Lr MD Main Office [address] [facility] 207 [place] [address] 04/23/2019 14:10:35 04/23/2019 16:15:12 Fatigue 83334462 R53.83 pt states sig better past few wks (? likely had postviral syndrome) - did trial day s stimulant on occasion - not too bad, but has noticed that her focus at work has been sig improved on 10mg / day ? undiagnose d adult add rec cont stimulant for 1 more month, f/u c psychiatri st - ? get testing/ev al for add and see if they can cont. her psychiatri c medication s Muscle weakness 17392992 M62.81 resolved, able to swim laps as normally can, has cont. c her swim club [id number] Lamberto Lr MD Main Office [address] [facility] 207 [place] [address] 05/28/2019 08:41:05 05/28/2019 10:22:04 Fatigue 64711889 R53.83 pt states intermitte ntly gets profound fatigue and other milder symptoms, then feels fine - overall is sig better than few wks ago (likely had postviral syndrome) - able to swim 1 mile ocean race, did well - stimulant has improved her focus at work on 10mg / day ? undiagnose d adult add rec cont stimulant for 1 more month, f/u c psychiatri st next month - ? get testing/ev al for add and see if they can cont. her psychiatri c medication s meanwhile - looked up SE of escitalopr am - wonder if 30mg/day too much for her, contributi ng to her intermitte nt somnolence /fatigue - rec trial of lowering to 20mg/day and f/u c psych next month 25 minute office visit with greater than 50% of the visit face-to-fa ce with the patient and/or family providing counseling and/or coordinati on of care. Muscle weakness 95573308 M62.81 resolved, able to swim laps as normally can, has cont. c her swim club and even swam a 1 mile ocean race [id number] Lamberto Lr MD Main Office [address] [facility] [address] [place] [address] 07/26/2019 09:38:39 07/26/2019 12:12:49 Adult health examination 288610033 Z00.00 Immunizati on status utd, pt declined flu and pneumovax. Will screen based on risk factors. Pt to schedule ob/gyn nurse f/u [facility] for routine screening. Regular dental and ophtho care advised as well as seat belt and sunscreen use. Distracted driving discussed. Needs infl uenza immunization 591750789 Z23 Screening for malignant neoplasm of breast 435918750 Z12.39 Overdue for screening. Screening for malignant neoplasm of cervix 065577737 Z12.4 Followed by ob/gyn nurse but no PAP in a few years. Advised to schedule [facility]. Juvenile m yoclonic epilepsy 5861518 G40.B09 Discharged by neuro. No seizure activity in over 2 yrs. Remains on lamictal primarily for mood stabilizat ion now. Essential hypertension 95028358 I10 Well controlled on diuretic which is currently well tolerated. Continue current regimen. Vitamin D deficiency 347 87888 E55.9 Level normal earlier this year. Will continue current dosing. Major depr ession in partial remission 40889768 F32.4 Followed and managed by [facility] Persistent cough 6141271 02 R05 Office spirometry normal. Will see if bronchodil ator trial helps. Consider further pulmonary eval or possibly GERD reassessme nt if persistent /worse. [id number] Lamberto Lr MD Main Office [address] [address] [place] [address] 01/09/2020 13:40:55 01/09/2020 14:28:56 Vitamin D deficiency 41109204 E55.9 Urinary tr act infectious disease 46981804 N39.0 rec check ua/c&s, will give empiric cipro recommend probiotics while on abx rec push fluids, robert cranberry juice [id number] Lamberto Lr MD Telehealt h [address] [facility] [address] [place] [address] 05/05/2020 13:05:55 05/05/2020 16:11:15 Cervical lymphadenopathy 754222056 R59.0 swelling less past few days, and pain stopped yesterday - she was initially concerned d/t h/o similar from a post-viral cause - advised her could use warm compress prn, and call us / send portal message if grows/recu rs - will get cxr, u/s neck and cbc at that time (not needed now since LN has ~ resolved) [id number] Mert Tim MD Telehealt h [address] [facility] [address] [facility] [place] [address] 11/04/2020 09:34:21 11/04/2020 13:51:17 Pain of right shoulder joint 2006842147 3975160 M25.511 hx impingemen t syndrome, worse over the last month. she would like orthopedic referral. I did also provide info for [facility] urgent care if her sx significan tly worsen. Continue naproxen as needed, home exercises. offered rx for muscle relaxer or prednisone and she declines both. call/ return for any concerns or worsening. [id number] Lamberto Lr MD Main Office [address] [facility] [address] [facility] [address] 05/27/2021 13:26:57 05/27/2021 14:33:43 Adult health examination 188550165 Z00.00 Immunizati on status utd, Flu advised in the Fall. Will screen based on risk factors. Patient declines mammograph y and does not require PAP post hysterecto my. Regular dental and ophtho care advised as well as seat belt and sunscreen use. Distracted driving discussed. Essential hypertension 49533472 I10 Well controlled on diuretic which is currently well tolerated. Continue current regimen. Hypercholesterolemia 136 97067 E78.01 Mild elevation in the past. Will reassess and discuss mgt depending on CVD risk score. Screening for malignant neoplasm of breast 125429732 Z12.39 Overdue for screening, but pt declines and understand s/accepts potential consequenc es. Screening for malignant neoplasm of cervix 160884741 Z12.4 Followed by ob/gyn nurse but no PAP in a few years. Advised to schedule [facility]. 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 Keeps stating that if she could get additional bariatric surgery she would feel better. Attempted to reconcile discrepanc ies in thoughts but pt seems to lack appropriat e insight. History of bariatric surgical procedure 206633184 Z98.84 Will check routine nutritiona l labs. Body mass index 30+ - obesity 090055801 E66.9 Z68.32 Juvenile m yoclonic epilepsy 9269308 G40.B09 Discharged by neuro. No seizure activity in over 2 yrs. Remains on lamictal primarily for mood stabilizat ion now. Chronic pancreatitis 235 527344 K86.1 Likely related to gastric bypass. Will reassess labs. Pt is asymptomat ic. Moderate r ecurrent major depression 16989382 F33.1 Followed and managed by [facility]. Pt is able to contract for safety and states that as long as her mom is alive she would never hurt herself. Working with therapist and med prescriber . Has follow up within the next couple of weeks. [id number] Lamberto Lr MD Main Office [address] [facility] [address] [facility] [address] 10/21/2021 10:15:34 10/21/2021 13:42:05 Cervical radiculitis 33432349 M54.12 pt declines pred pulse. rec cont moist heat/heati ng pad, gentle stretching , give trial of uptitratin g dose of gbn and get ortho eval, and prn tyl [id number] Lamberto Lr MD Main Office [address] [facility] [address] [place] [address] 07/05/2022 13:42:24 07/05/2022 14:54:04 Adult health examination 550292876 Z00.00 Immunizati on status partially updated. Bivalent COVID 19 booster advised via local pharmacy. Will screen based on risk factors. Patient declines mammograph y and does not require PAP post hysterecto my. Regular dental and ophtho care advised as well as seat belt and sunscreen use. Distracted driving discussed. Hypercholesterolemia 136 06336 E78.01 Mild elevation in the past. Will reassess and discuss mgt depending on CVD risk score. Generalize d anxiety disorder 80998885 F41.1 Essential hypertension 26443102 I10 Well controlled on diuretic which is currently well tolerated. Continue current regimen. Overdue for labs Screening for malignant neoplasm of breast 903167671 Z12.39 Overdue for screening, will schedule [facility]. Screening for malignant neoplasm of cervix 622692850 Z12.4 s/p hysterecto my, screening no longer indicated. Screening for malignant neoplasm of colon 981822699 Z12.11 Declines colonoscop y, willing to pursue Cologuard. Understand limitation s. Needs infl uenza immunization 114759229 Z23 Right late ral elbow tendinopathy 7400351207 30624 M77.11 ? if this is related to Cspine stenosis seen on previous Cspine xray. Vitamin D deficiency 347 55293 E55.9 Level normal earlier this year. Will continue current dosing. 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 Will Assess further to see if possily shoulder and elbow pain are radicular. i Body mass index 30+ - obesity 498153520 E66.9 Z68.31 Failed topamax, on metformin, would like to discuss GLP1 agonist therapy at follow up. Iron defic iency anemia 80307378 D50.9 Secondary to bariatric surgery and responded well to IV iron. WIll follow. Chronic pancreatitis 235 452461 K86.1 Likely related to gastric bypass. Will reassess labs. Pt is asymptomat ic. Moderate r ecurrent major depression 26226699 F33.1 Followed and managed by [facility]. Juvenile m yoclonic epilepsy 6475939 G40.B09 Discharged by neuro. No seizure activity in over 2 yrs. Remains on lamictal primarily for mood stabilizat ion now. History of bariatric surgical procedure 915418791 Z98.84 Will check routine nutritiona l labs. [id number] Lamberto Lr MD Main Office [address] [facility] [place] [address] 09/05/2022 12:32:04 09/05/2022 14:51:37 Right lateral elbow tendinopathy 0681180938 05878 M77.11 Having surgery with ortho. Brachial neuritis 918195 07 M54.12 Symptoms are currently stable. If worsening will revisit imaging with ins. Chronic pancreatitis 235 119016 K86.1 Likely related to gastric bypass. Will reassess labs. Pt is asymptomat ic. Hypokalemia 18958956 E87 .6 Reassess when not fasting. Continue thiazide for now. Hypercholesterolemia 136 93297 E78.01 Will continue to monitor based on current CVD risk score. Body mass index 30+ - obesity 894309663 E66.9 Z68.33 Failed topamax, on metformin, unfortunat dang GLP1 agonist therapy is contraindi cated with her hx of pancreatit is. [id number] Lamberto Lr MD Main Office [address] [facility] [address] [facility] [place] [address] 09/12/2023 08:49:13 09/12/2023 09:56:07 Adult health examination 918932074 Z00.00 Immunizati on status partially updated. COVID 19 booster advised via local pharmacy. Will screen based on risk factors. Patient declines mammograph y and does not require PAP post hysterecto my. Regular dental and ophtho care advised as well as seat belt and sunscreen use. Distracted driving discussed. Persistent cough 3356719 02 R05.3 Screen for PNA/lung disease. Will have CT scan for lung cancer screening given her new eligibilit y. Chronic pancreatitis 235 876435 K86.1 Likely related to gastric bypass. Will reassess labs. Pt is asymptomat ic. Recurrent major depression in partial remission 34836332 F33.1 Fair control followed and managed by Dr. Enamorado Juvenile m yoclonic epilepsy 4879969 G40.B09 Followed by neuro at [facility]. No seizure activity in over 2 yrs. Remains on lamictal primarily for mood stabilizat ion now. History of bariatric surgical procedure 030586723 Z98.84 Will check routine nutritiona l labs. Hypercholesterolemia 136 25257 E78.01 Will continue to monitor based on current CVD risk score. Iron defic iency anemia 54024801 D50.9 Secondary to bariatric surgery and responded well to IV iron. WIll follow. Nicotine dependence 5629 4008 Z87.891 LDCT Lung Cancer Screening Program Annual Order Screening for malignant neoplasm of colon 266270420 Z12.11 Needs colon cancer screening Vitamin D deficiency 347 96537 E55.9 Level normal earlier this year. Will continue current dosing. Screening for malignant neoplasm of breast 262650974 Z12.39 Overdue for screening, will schedule [place]. Body mass index 30+ - obesity 483516428 E66.9 Z68.33 Failed topamax, on metformin, unfortunat dang GLP1 agonist therapy is contraindi cated with her hx of pancreatit is. Hepatitis C screening 41 7773776 Z11.59 [id number] CAITLIN SWANSON Main Office [address] [facility] [address] [place] [address] 11/01/2023 09:25:59 11/01/2023 10:11:12 Persistent cough 775450235 R05.3 -Was seen at [facility] on 10/30 for her persistent cough; provided with doxycyclin e, prednisone , and an albuterol inhaler. Dx with bronchitis . chest xray was negative-c ompleted the anitibioti c course; notes of having no relief, does not tolerate AE of prednisone and did not complete, states inhaler provides no relief-PE revealed expiratory wheezing-w ill order CT scan and PFTs for further evaluation -will have pt schedule office visit once the imaging and PFTs are complete [id number] Mert Tim MD Main Office [address] [facility] [address] [place] [address] 01/11/2024 09:21:20 01/11/2024 10:15:45 Dizziness [id number] R42 neg orthostati c vitals Pain of bi lateral knee joints [id number] 16561 M25.561 M25.562 will refer. Benign par oxysmal positional vertigo 124360253 H81.10 + head tilt test, + nystagmus. Will tx with meclizine for vertigo, recommend hydration, rest, bloodwork today. PT if sx not improving. [id number] Mert Tim MD Telehealt h 36[address] [facility] [address] [place] [address] 09/18/2024 14:28:38 09/18/2024 15:06:18 Vitamin D deficiency 41582009 E55.9 refill provided. Pneumonia 398884971 J18. 9 Will tx for possible secondary bacterial PNA.Hydrat ion, rest, tylenol or ibuprofen as needed, tea with honey, OTC cough meds as needed, zpak as directed x 5 days. Cough 08562786 R05.9 Tessalon perles during the day as needed, robitussin with codeine as needed at bedtime- no driving, work or alcohol with meds. COVID-19 071230168 U07.1 Tested + 9.24, did not take paxlovid and felt initial sx were not too bad. [id number] Lamberto Lr MD Main Office [address] [facility] [address] [place] [address] 10/07/2024 13:36:32 10/07/2024 15:02:13 Adult health examination [id number] Z00.00 Tdap, PCV20 advised via local pharmacy. Will screen based on risk factors. Patient declines mammograph y and colonoscop y and does not require PAP post hysterecto my. Regular dental and ophtho care advised as well as seat belt and sunscreen use. Distracted driving discussed. Screening for malignant neoplasm of cervix 383619918 Z12.4 s/p hysterecto my, screening no longer indicated. Screening for malignant neoplasm of breast 713892345 Z12.39 Overdue for screening, will schedule [place]. Body mass index 30+ - obesity 887675221 E66.9 Z68.33 Failed topamax, on metformin, May be a candidate for GLP1 agonist therpay as GI does not feel she has pancreatit is. Administra tion of pneumococcal vaccine 38281655 Z23 Requires a tetanus booster 692606306 Z28.39 Chronic pancreatitis 235 235801 K86.1 Apparently an erroneous diagnosis based on her recent GI eval. Will request/re view notes and imaging results. Recurrent major depression in partial remission 77203188 F33.1 Fair control followed and managed by Dr. Enamorado Juvenile m yoclonic epilepsy 1980910 G40.B09 Followed by neuro at [facility]. No seizure activity in over 2 yrs. Remains on lamictal primarily for mood stabilizat ion now. History of bariatric surgical procedure 536938991 Z98.84 Will check routine nutritiona l labs. Hypercholesterolemia 136 91619 E78.01 Will reassess and manage based on current CVD risk score. Iron defic iency anemia 43366385 D50.9 Secondary to bariatric surgery and responded well to IV iron. Will follow. Nicotine dependence 5629 4008 Z87.891 LDCT Lung Cancer Screening Program Annual Order Screening for malignant neoplasm of colon 637660492 Z12.11 Needs colon cancer screening, but declines and understand s/accepts potential consequenc es. Vitamin D deficiency 347 83796 E55.9 Level normal earlier this year. Will continue current dosing. Mild persi stent asthma 011375752 J45.30 Based on positive methacholi ne challenge. Will continue current ICS/LABA regimen. [id number] Mert Tim MD Main Office [address] [facility] [address] [facility] [place], [place] [address] 11/11/2024 09:28:03 11/11/2024 10:22:43 Moderate persistent asthma 763435242 J45.40 with exercise component. 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 For now increase Wixela dosage from 250 mcg to 500 mcg BID and use albuterol definitely 1 hr prior to swimming activity and otherwise PRN. . Health Concerns Section Related Observation LastModified by Organization Detai ls LastModified Time None Recorded Concern Status LastModified by Organization Details LastModified Time None Recorded Advance Directives Directive Y: HCP/Cornell-Amelia Payers Insurance Date Sequence Insurance Name Policy Number Policy Carter Covered Member ID Carter Member ID Guarantor Name 08/08/2025 1 [facility] [place] [id number] Geni Diop [id number] Geni Diop Notes Date Note Type Note Provider Name and Address Organization Details Recorded Time 11/01/2023 text/html ROS as noted in the HPI Geni is a 48yr old F who presents for a persistent cough x3 weeks. PMH migraine, epilepsy, obesity status post gastric bypass, nephrolithiasis, major depression, non-smoker. Was seen at [facility] 10/30 for her persistent cough. Was provided with doxycycline, prednisone, and an albuterol inhaler. Dx with bronchitis. chest xray was negative. Pt reports that she had no improvements since finishing the antibiotic course, does not tolerate AE of prednisone and only took x3 days worth, and notes that there is no improvements with the albuterol inhaler. Denies any sore throat, n/v/d, sinus pressure, ear pain/pressure, dizziness, weakness, chest pain, shortness of breath with exertion, or hemoptysis. Robel Wolf MD [address] [address], [place], [address], [facility] 11/03/2023 12:55:45 01/11/2024 text/html Generic HPI TemplateReported by PatientPresents c/o dizziness since september intermittently but for the last 2 weeks has been constant. happens if she is laying flat and get up or sitting to laying, if she si swimming she gets disoriented if she turns over. - Was sick for a long time,. discovered she has asthma but had congestion/ mucous for 6 motnhs straight, no ear pain, no cracking or popping, does not wear ear plugs when swimming, swims 3 morning/ week. Yesterday could not swim. Does feel it now. Has not been driving too much but is very careful when driving, drinks a lot of water, BP has been normal. - Has knee pain x years, would like ortho referral FABI Norwood [address] [address], [place], [address], [facility] 01/11/2024 11:24:00 09/18/2024 text/html Generic HPI TemplateReported by PatientVideo visit:Patient tested + for covid on 09/09/24. She is not feeling better. she did not take paxlovid. Sx were not too bad, no body aches or fever. Lost her voice last , couldn't talk for 3 days, now hoarseness, now coughing a lot with production, thick yellow green discharge, both sides of her neck.Cough is keeping her up at night, fatigued, tired, not sleeping. sore throat is better, no ear pain, slight headache. no n/v/d.No wheezing or SOB.Not using her albuterol more frequently- did try it but no change. FABI Norwood [address] [address], [place], [address], [facility] 09/18/2024 15:05:54 10/07/2024 text/html Generic HPI TemplateReported by PatientHere for physical. Reports stable chronic depression. Seeing dentist and ophtho regularly. Lamberto Lr MD [address] [address], [place], [address], [facility] 10/07/2024 15:08:44 11/11/2024 text/html ROS as noted in the HPI 49 y.o female with a hx of mild persistent asthma presents for to the office for sick visit with CC of cough, intermittent chest tightening, occasional wheezing episodes for which she uses her rescue inhaler. Currently taking Albuterol PRN as well Wixela 250 dose twice daily. She states she has had these symptoms since being dx with asthma last October and they have never been in good control with her current regimen. She has symptoms almost every morning but denies any night time awakenings . Pt swims several times weekly and some daily she has difficulty with that activity and has to use rescue couple of times. She stays away from triggers including candles, wall plug ins and fragrances. She is taking her Wixela as directed and Albuterol PRN, usually using it 1-2x week. Denies any fever, chills, N/V/D and wheezing. Denies any sick contacts, recent travel or medication changes. No other concerns at this time. NO h/o allergic rhinitis or seasonal allergy. Lora Phelps PA-C [address] [address], [place], [address], [facility] 11/11/2024 11:24:45 OBGyn Episode No OBEpisode recorded.
--- OUTSIDE RECORDS SUMMARY | 2025-08-12 14:30 | XMS_ITS | Patient Health Record ---
Author Organization [facility] Address [address] [place] [address] Care Team Providers Care Public Employment Mediator Name Role Phone BE LOONEY, RD Primary Care Provider Unavail able Sangeeta Mercado Unavailable [phone] Allergies Allergen (clinical drug ingredient) Drug/Non Drug Allergy documented on EMR Reaction Allergy Type Onset Date Status ketorolac Toradol (uncoded) Unknown Allergy Ac tive phenobarbital PHENOBARBITAL Shock Drug Allergy Active Results Component Value Reference Range Notes Urinalysis, Complete-[id number] Reviewed date:09/05/2024 08:09:59 AM Interpretation: Performing Lab:[facility] [place], [employer] [facility], Phone - [phone], Director - Aurea Notes/Report: Clinical Information:SRC: Clinical Information:SRC: Specific Spearman 1.028 1.005-1.030 pH 6.5 5.0-7.5 Urine-Color Yellow Yellow Appearance Clear Clear WBC Esterase Negative Negative Protein Trace Negative/Trace Glucose Negative Negative Ketones Trace Negative Occult Blood Negative Negative Bilirubin Negative Negative Urobilinogen,Semi-Qn 1.0 0.2-1.0 mg/dL Nitrite, Urine Negative Negative Microscopic Examination Micr oscopic follows if indicated. Microscopic Examination See below: Micr oscopic was indicated and was performed. WBC None seen 0 - 5 /hpf RBC 0-2 0 - 2 /hpf Epithelial Cells (non renal) 0-10 0 - 10 /hpf Casts None seen None seen /lpf Bacteria None seen None seen/Few Urine Culture, Routine-[id number] Reviewed date:09/05/2024 08:09:46 AM Interpretation: Performing Lab:[facility] [place], [employer] [facility], [place], Phone - [phone], Director - Aurea Notes/Report: Clinical Information:SRC: Clinical Information:SRC: Urine Culture, Routine Final report Result 1 No growth PDF Report Reviewed date:09/05/2024 08:08:58 AM Interpretation: Performing Lab:[facility], [address], [place], Phone - [phone], Director - Aurea Notes/Report: Clinical Information:SRC: Reason For Referral No Information Medications Medication SIG (Take, Route, Fr equency, Duration) Notes Start Date End Date Status traZODone HCl 100 MG TAKE 1 TABLET BY [facility] DAILY AT BEDTIME. Oral; Duration: 90 Days Active Chlorthalidone 25 MG Oral; Duration: 90 Days Active lamoTRIgine ER 200 MG 1 tablet Oral Twic e a day; Duration: 90 days Active Omeprazole 40 MG Oral; Duration: 90 Days Active Lexapro 20 MG 1 tablet Orally Once a day Active Social History Tobacco Use: Social History Observation Description Date Details (start date - stop date) Former Smoker NA - NA Sexual History Question Answer Notes Had sex in the past 12 months (vaginal, oral, or anal)? No AUDIT-C (Standard) Question Answer Notes Did you have a drink containing alcohol in the p ast year? No Points 0 Interpretation Negative Tobacco Control (Standard) Question Answer Notes Tobacco use: Former smoker How long has it been since you last smoked? 1-5 years Section Notes: Marital status: single Children: none Lives with: room-mate Pets: 1 DOG, 2 CATS Occupation: employed full-time Nutrition: good diet Exercise: regular aerobic activity regular cardio Sexual activity: not sexually active Heterosexual Contraception: condoms .CE: Smoking: current smoker Tobacco exposure: smoker in home(smokes inside) .CE: Alcohol: rare alcohol Text messaging while driving: yes Sunscreen: yes Illicit drugs: no Seatbelt: yes Seatbelt: yes Seatbelt: yes Seatbelt: yes Problems Problem Type SNOMED Code ICD Code Onset Dates Problem Status W/U Status Risk Notes Problem Generalized anxiety disorder (14034925) Generalized anxiety disorder (F41.1) Active confirmed Problem Epilepsy (19381336) Epilepsy, unspecified, not intractable, without status epilepticus (G40.909) Active confirmed Problem Unspecified menopausal and perimenopausal disorder (N95.9) Active confirmed Problem Viral infection (18969562) Unspecified viral infection, in conditions classified elsewhere and of unspecified site (079.99) Active confirmed Diag Problem Obesity (282357384) Obesity, unspecified (278.00) Active confirmed Major Problem Depressive disorder (56287392) Depressive disorder, not elsewhere classified (311) Active confirmed Major Problem Migraine (disorder) (81313566) Migraine, unspecified without mention of intractable migraine without mention of status migrainosus (346.90) Active confirmed Major Problem Hypertrophy of nasal turbinates (72731761) Hypertrophy of nasal turbinates (478.0) Active confirmed Diag Problem Acute sinusitis (58569641) Acute sinusitis, unspecified (461.9) Active confirmed Diag Problem Acute upper respiratory infection (82377989) Acute upper respiratory infections of unspecified site (465.9) Active confirmed Diag Problem Calculus of kidney (72152556) Calculus of kidney (592.0) Active confirmed Major Problem Headache (39196058) Headache (784.0) Active confirmed Diag Problem Cough (51203128) Cough (786.2) Active confirmed Diag Vital Signs Temperature 97.5 degrees Fahrenheit 08/16/2024 Blood pressure diastolic 78 mm Hg 08/16/2024 Height 66.5 in 08/16/2024 Blood pressure systolic 112 mm Hg 08/16/2024 Weight 212 lbs 08/16/2024 BMI 33.7 kg/m2 08/16/2024 Encounters Encounter Location Date Provider Diagnosis [address] [address] 09/06/2024 Sangeeta Mercado [address] [address] 08/16/2024 Sangeeta Mercado Lower abdominal pain , unspecified R10.30 and Unspecified menopausal and perimenopausal disorder N95.9 Assessments Encounter Date Diagnosis (ICD Code) Assessment Notes Treatment Notes Treatment Clinical Notes Section Notes 08/16/2024 Unspecified menopausal and perimenopausal disorder (ICD-10 - N95.9) DISCUSSED MENOPAUSE AND PERIMENOPAUSE AND SYMPTOMS ASSOCIATED WITH THESE. ESTROVEN WAS RECOMMENDED TO DECREASE HOT FLASHES. 08/16/2024 Lower abdominal pain, unspecified (ICD-10 - R10.30) DISCUSSED COMMON CAUSES OF LOWER ABDOMINAL PAINS. PELVIC AND RETROPERITONEAL ULTRASOUNDS WERE ORDERED. Plan Of Treatment Pending Test Test Name Order Date Urinalysis 08/16/2024 Ultrasound : Pelvic 05/10/2016 Insurance Providers Payer Name Payer Address Payer Phone Subscriber Number Group Number Insured Name Patient Relationship to Insured Coverage Start Date Coverage End Date [facility] [address] [place] [address] [id number] NICOLE WELLS Self - patient is the insured 3 Medical (General) History Medical History History ICD Code Cough R05 Headache R51 Hypertrophy of nasal turbinates J34.3 Acute sinusitis, unspecified J01.90 Acute upper respiratory infection, unspe cified J06.9 Unspecified enterovirus as the cause of diseases classified elsewhere B97.10 Major depressive disorder, single episod e, unspecified F32.9 Calculus of kidney N20.0 Migraine, unspecified, not intractable, without status migrainosus G43.909 Obesity, unspecified E66.9 Generalized anxiety disorder F41.1 Epilepsy, unspecified, not intractable, without status epilepticus G40.909 Surgical History Surgery Date(Month/Year) Appendectomy 1994 Cholecystectomy 2005 D&C Total Hysterectomy, Ovaries Remain 1994 Gastric Bypass 2004 Oral Surgery Tonsillectomy [place] Teeth Rhinoplasty 01/2013 Hospitalization History Reason Date(Month/Year) Pancreatitis 2017 See Surgical Hx
--- OUTSIDE RECORDS SUMMARY | 2025-08-12 14:30 | XMS_ITS | Clinical Summary ---
Author Organization [facility] Address [address] [place] [phone] Phone Care Team Providers Care Channel Marketing Specialist Name Role Phone Lamberto Coronado MD Primary Care Provider Allergies Active Allergy Reactions Criticality Noted Date Comments Phenobarbital Sodium 12/25/2023 Medications escitalopram oxalate (LEXAPRO ORAL) Take by mouth. Active CHLORTHALIDONE ORAL Take by mouth. Active LAMOTRIGINE ORAL Take by mouth. Active OMEPRAZOLE ORAL Take by mouth. Active Social History Tobacco Use Types Packs/Day Years [...] on file Sexual Orientation Not on file Last Filed Vital Signs Vital Sign Reading Time Taken Comments Blood Pressure 101/55 12/25/2023 1:03 PM EDT Pulse 76 12/25/2023 1:13 PM EDT Temperature 36.2 C (97.2 F) 12/25/2023 1:03 PM EDT Respiratory Rate 33 12/25/2023 1:13 PM EDT Oxygen Saturation 99% 12/25/2023 1:13 PM EDT Inhaled Oxygen Concentration - - Weight - - Height - - Body Mass Index - - Plan of Treatment Health Maintenance Due Date Last Done Comments Adult Td,Tdap Booster 1973 LIPID PANEL 1973 POTASSIUM LEVEL 1973 DEPRESSION SCREENING 1985 SMOKING Hx and SMOKELESS TOB ACCO SCREENING 1986 HEPATITIS C SCREENING 1991 HIV ONE-TIME SCREENING (18-6 5 YEARS) 1991 PAP SMEAR 1994 MAMMOGRAM 01/25/2018 01/26/2016 COLOGUARD 2018 COLONOSCOPY 2018 COLORECTAL CANCER SCREENING 2018 FIT TEST 2018 FOBT 2018 SIGMOIDOSCOPY 2018 VIRTUAL COLONOSCOPY 2018 PNEUMOCOCCAL VACCINES (50+ y ears) (1 of 1 - PCV) 2023 ZOSTER VACCINES (1 of 2) 2023 INFLUENZA VACCINE (#1) 2025 COVID-19 VACCINE ( - 2024-2 6 season) 2025 RSV VACCINE (1 - 1-dose 75+ series) 2048 HEPATITIS A VACCINES Aged Out No long er eligible based on patient's age to complete this topic HIB VACCINES Aged Out No longer eligi ble based on patient's age to complete this topic IPV VACCINES Aged Out No longer eligi ble based on patient's age to complete this topic MENINGOCOCCAL VACCINES (ACWY) Aged Out No longer eligible based on patient's age to complete this topic MENINGOCOCCAL VACCINES (B) Aged Out N o longer eligible based on patient's age to complete this topic Medical Devices Not on file Insurance [facility] [address] [place], [place] [address] Care Teams Channel Marketing Specialist Relationship Specialty Start Date End Date Lamberto Coronado MD [address] [place] [address] PCP - General Internal Medicine 12/25/23 Additional Source Comments The information contained in this document represents components of the legal health record. It is not the complete legal health record.[facility]
--- OUTSIDE RECORDS SUMMARY | 2025-08-12 14:30 | XMS_ITS | Clinical Summary ---
Author Organization [facility] Address [address] [place] [address] Care Team Providers Care X Ray Equipment Servicer Name Role Phone LongLamberto ledesma Primary Care Provider [phone] Allergies Active Allergy Reactions Criticality Noted Date [...] myoclonic epilepsy, not intractable, without status epilepticus Take 2 tablets (400 mg total) by mouth at bed time. 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 right handed female with a history of migraines, asthma, anxiety, and depression, who presents to [facility] epilepsy clinic for routine follow-up regarding JM epilepsy. She is on Lamotrigine monotherapy. She had dizziness with higher doses of Lamotrigine. Doing well overall. She has noted memory difficulties over the last year. We discussed contributing factors that may affect memory, including mood, sleep, fdc use of AEDs. - Continue Lamotrigine XR [...] migraines, anxiety, and depression, who presents to [facility] epilepsy clinic for routine follow-up regarding [...] Recurrent major depression in partial remission 01/22/2013 Encounters Date Type Department Care Team Description 05/16/2025 Telephone [facility] [address] [place] [address] Telephone Intake, Staff PAC Appt Request - Established from Last 3 Months Family History Medical History Relation Name Comments [...] 07/12/2022 10:04 AM EDT Plan of Treatment Health Maintenance Due Date Last Done Comments Cologuard 1973 Colon Cancer Screening 1973 Colonoscopy 1973 FOBT / Fit Test 1973 HIV Screening 1973 HPV and Pap Smear 1973 Sigmoidoscopy 1973 Hepatitis B Vaccines (1 of 3 - 19+ 3-dose series) 1992 Cervical Cancer Screening 04/27/1998 Pap Smear 04/27/1998 04/27/1995 Mammogram 2013 DTaP,Tdap,and Td Vaccines (2 - Td or Tdap) 02/07/2023 02/07/2013 CT Lung Cancer Screening (Baseline) 2023 Pneumococcal Vaccine: 50+ Ye ars (1 of 1 - PCV) 2023 Zoster Vaccines (2 of 2) 10/11/2023 08/16/2023 Alcohol/Substance Use Screening 10/02/2024 COVID-19 Vaccine (6 - 2024-2 6 season) 2025 08/16/2023, 09/14/2022, 07/20/2021, Additional history exists Influenza Vaccine (#1) 2025 , 07/07/2023, 07/05/2022, Additional history exists Procedures * Due to [facility] law, this organization might not be sharing negative HIV tests. Procedure Name Priority Date/Time Associated Diagnosis Comments PAP Routine 04/27/1995 11:34 AM EDT from Last 3 Months or Most Recently Relevant to Health Maintenance Results * Due to [place] [employer] law, this organization might not be sharing negative HIV tests. * Pap (04/27/1995 11:34 AM EDT) [facility] 2. Regular menstrual cycle:, no [facility] 3. [place]:, 0 U [facility] 6. Gynecologic findings:, H/O Hyperplasia [facility] 7. Source of this specimen:, VCE [facility] 8. Hormonal Contraceptive:, no [facility] 9. Intrauterine Contraceptive:, no [facility] [employer]out GYNE PAP SMEAR ADEQUACY: Satisfactory but limited by red and white blood cells. GENERAL DIAGNOSTIC CATEGORY: Within NORMAL limits Hormonal evaluation (vaginal smear only): Not evaluable No pathogenic organisms seen REMARKS/RECOMMEN DATIONS: Increased neutrophils. Edited by: [id number] CHRISTOPHE [facility] Cc Results To [facility] Signature REPORT SIGNED: KI LANDIS 05/07/95 (preliminary) KI LANDIS 05/07/95 [facility] Cytology / Unknown 5 11:34 AM EDT 04/27/1995 11:34 AM EDT us Historical Conversion Provider LAB PATHOLOGY/CYT OLOGY ORDERABLES Final Result [facility] [address] [place] [address], from Last 3 Months or Most Recently Relevant to Health Maintenance Insurance Care Teams X Ray Equipment Servicer Relationship Specialty Start Date End Date Lamberto Coronado [address] [facility] [address] [place] [address] [facility] - General 04/20/17
--- OUTSIDE RECORDS SUMMARY | 2025-08-12 14:30 | XMS_ITS | Data Portability ---
Author Organization EVELIO Shashi Bueno [facility] Address [address] [place] [address] Care Team Providers Care Retail Cashier Name Role Phone RD LR Primary Care Provider [phone] Assessment Encounter Date Assessment Date Assessment LastModified [...] of the left shoulder dated 10/25/2024 from [facility]. There is tendinosis of the distal [...] grossly intact. Eyes: Sclera are not blue. oral and maxillofacial surgery II-XII are grossly intact. Full extraocular motion. [...] acromial clavicular joint and biceps tenderness. Positive [place]'s test. Small lipoma noted at the anterolateral [...] visit note. This note was generated with [facility] speech recognition screen printing inspector dictation software. Please excuse any errors that may have been overlooked during review of this note. Sometimes, these errors may affect the content or meaning of a given sentence. Please call for corrections. [email or web address] Not available 11/22/2024 07:56:42 02/04/2025 02/04/2025 shoulde [email or web address] Not available 03/2025 08:32:38 03/25/2025 03/25/2025 shoulde [email or web address] Not available 03/03 13:16:00 05/20/2025 05/20/2025 shoulde [email or web address] Not available 05/02 15:59:54 Plan of Treatment Reminders Order Date Submit Date Provider Last Modified By Organization Details Last Modified Time Details Appointments None recorded. Lab None recorded. Referral physical therapist referral - PHYSICAL THERAPY REFERRAL ICD-10: M75.42; M75.22(le ft) 1. Follow post-surg ical protocol. 2. Soft tissue modalitie s as indicated . 3. Daily home exercise and ROM program. 4. Do not force painful motion. 5. Avoid abduction type, long arm strengthe anderson exercises x 4 weeks. Allow 2-3 times a week for 6 weeks with home program. Date of Surgery: January 22, 2025 Completed by: 2024 025 [email or web address] 5 [facility]), [address], [place], [address], 5 11:11:04 Procedures None recorded. Surgeries None recorded. Imaging XR, shoulder, 2 or more view - 4v L shldr. room [email or web address], [address], [place], , [address], 5 09:28:32 XR, cervical spine, 1 view - cspine. room 219 [facility], [address], [place] [address], , [address], 5 09:28:32 MRI, shoulder, w/o contrast - L shldr mri. ?rct 2024 025 [facility] ([facility]), [address], , [address], 5 19:13:06 Medication Orders None recorded. Patient TargetsNo targets recorded. Patient InstructionsNo instructions recorded. Reason for Referral Physical Therapist Referral for Impingement syndrome of left shoulder region PHYSICAL THERAPY REFERRAL ICD-10: M75.42; M75.22(left) 1. Follow post-surgical protocol.2. Soft tissue modalities as indicated.3. Daily home exercise and ROM program.4. Do not force painful motion.5. Avoid abduction type, long arm strengthening exercises x 4 weeks.Allow 2-3 times a week for 6 weeks with home program.Date of Surgery: January 225Completed by: Referring Physician: Mau Polk, Orthopedic Surgery, Encounter Date: 11/15/2024 Results Created Date Observation Date Name Description Value Unit Range Abnormal Flag Note LastModifiedBy Organization Detail LastModifiedTime 01/04/20 25 01/04/2025 ELECT ROLYT E PANEL sodium 140 mmol/ L 134-14 4 normal Not Available [facility] ([facility]) [address], [place], [address], 01/04/2025 06:05:40 01/04/20 25 01/04/2025 ELECT ROLYT E PANEL potassium 3.1 mmol/ L 3.5-5. 2 below low normal Not Available [facility] ([facility]) [address] [place], [address], 01/04/2025 06:05:40 01/04/20 25 01/04/2025 ELECT ROLYT E PANEL chloride 100 mmol/ L 96-106 normal Not Available [facility] ([facility]) [address] [place], [address], 01/04/2025 06:05:40 01/04/20 25 01/04/2025 ELECT ROLYT E PANEL carbon dioxide, total 24 mmol/ L 20-29 normal Not Available [facility] ([facility]) [address] [place], [address], 01/04/2025 06:05:40 01/16/20 25 01/16/2025 ELECT ROLYT E PANEL sodium 140 mmol/ L 134-14 4 normal Not Available [facility] ([facility]) [address] [place], [address], 01/16/2025 08:12:56 01/16/20 25 01/16/2025 ELECT ROLYT E PANEL potassium 4.0 mmol/ L 3.5-5. 2 normal Not Available [facility] ([facility]) [address] [place], [address], 01/16/2025 08:12:56 01/16/20 25 01/16/2025 ELECT ROLYT E PANEL chloride 98 mmol/ L 96-106 normal Not Available [facility] ([facility]) [address] [place], [address], 01/16/2025 08:12:56 01/16/20 25 01/16/2025 ELECT ROLYT E PANEL carbon dioxide, total 20 mmol/ L 20-29 normal Not Available [facility] ([facility]) [address] [facility], [place], [address], 01/16/2025 08:12:56 10/14/19 25 10/14/2024 XR, cervi bouchra spine , 1 view [email or web address]:/ [email or web address] ?Encry pted=s hAaTro YD8dLq bEUv6g %2BXZw aYqtaq 0bqfl% 2Fg9IQ a4ajBk vP9nXo QUaueC m3YtLR FvZlgJ JJ8mAn HZtai3 5o1754 AC0Kqb 36HUKC iKiQtr MwF INTERFACE [facility] [address] [place], , [address], 10/14/2024 09:08:03 10/14/19 25 10/14/2024 XR, cervi bouchra spine , 1 view [email or web address]:/ [email or web address] ?Encry pted=s hAaTro YD8dLq bEUv6g %2BXZw aYqtaq 0bqfl% 2Fg9IQ a4ajBk vP9nXo QUaueC m3YtLR FvZlgJ JJ8mAn HZtai3 2i6051 AC0Kqb 36HUKC iKiQtr MwF INTERFACE [facility] [address] [place], , [address], 10/14/2024 09:08:06 10/14/19 25 10/14/2024 XR, ricardoul umu, 2 or more view [email or web address]:/ [email or web address] ?Encry pted=s hAaTro YD8dLq bEUv6g %2BXZw aYqtaq 0bqfl% 2Fg9IQ a4ajBk vP9nXo QUaueC m3YtLR FvZlgJ JJ8mAn HZtai3 6r5201 AC0Kqb 36HUKC lKiQtr MwF INTERFACE [facility] [address] [place] [address], , [address], 10/14/2024 09:11:06 10/14/19 25 10/14/2024 XR, anirudh sanz, 2 or more view http:/ [email or web address] ?Encry pted=s hAaTro YD8dLq bEUv6g %2BXZw aYqtaq 0bqfl% 2Fg9IQ a4ajBk vP9nXo QUaueC m3YtLR FvZlgJ JJ8mAn HZtai3 6v2725 AC0Kqb 36HUKC lKiQtr MwF INTERFACE [facility] [address] [place] [address], , [address], 10/14/2024 09:11:08 10/27/19 25 10/25/2024 MRI, anirudh sanz, w/o contr ast [facility] Access ion Number : [id number] Patien t Name: Chelsea Diop crow Medica l Record Number : [id number] Date of : 1974 Date of Exam: 2024 Referr ing Physic maryann: [facility] [address], [address] [place] [address] Exam: MR Should er (C-) CPT 08963 - Left Room Descri ption: [facility] 3.0T Clinic al Histor y: Left [...] onical ly Signed By: Addy maria MD [email or web address] [facility] ([facility]) [address], [place], [address], 10/30/2024 08:28:22 Result Notes Documentation Provider Name and Address Organization Details Recorded Time Xr, Cervical Spine, 1 View : [email or web address] Encrypted=wgAhZhcSL9cAodQ Uv6g%9IIZjgAtkre6umcf%2Fg 6FYn9ayHfxC0lTjHWizfIy3Vp XFNkXjqJWO9qEbGDyel72p213 8CK5Tli92ZMNKwMyArnXcA Not Available [facility] 10/14/2024 09:08:04 Xr, Cervical Spine, 1 View : [email or web address] Encrypted=xkXsVyoXL9rYttT Uv6g%4IGSqtCelqu1rqit%2Fg 2GNq3suSqaW7xKnUPvmsDf4Ay HQXkDtiWSQ2mMoZFvxe23l257 8XD1Dcu65FNQUeJsHrxSwW Not Available [facility] 10/14/2024 09:08:06 Xr, Shoulder, 2 Or More View : [email or web address] Encrypted=ymWhUewOB9qJpeS Uv6g%8QUWhnZrmcj7zdnk%2Fg 4DEe4iuQrvP6lVwABpslTw2Ax NKPpJvoBVX5sArGRbue14l493 4BK4Zgg44TUDNjFeMapKqT Not Available [facility] 10/14/2024 09:11:07 Xr, Shoulder, 2 Or More View : [email or web address] Encrypted=tuRuObdTH2kHfpU Uv6g%6WZWmiHprhr3issn%2Fg 4EAv9hcFuuA1lHaCQvvnLq6Aj VQApSxgPOJ6tAfGRpbb12z426 6GV9Yaf27PVBQdStGvqEsA Not Available [facility] 10/14/2024 09:11:09 Mri, Shoulder, W/o Contrast : [facility] [place] Accession Number: [id number] Patient Name: Geni Diop Date of : 1975 Date of Exam: 10-25-2024 Referring Physician: Forest Whitley [facility] ([facility]) [address] [place], [place] [address], [address] [address] Exam: MR Shoulder (C-) CPT 57026 - Left Room Description: [facility] 3.0T Clinical History: Left shoulder pain. [...] Mild intra-articular biceps tendinopathy. Electronically Signed By: Addy randhawa [place] - [facility] 10/30/2024 08:28:23 Problems Name Problem SNOMED Code Status Onset Date Resolution Date Notes Provider Name and Address Organization Details Recorded Time Bilateral osteoarthri tis of knees 7263772983147 07 Active 2023 Mita Briceño i, PA-C [address], [place], [address], [facility] 4 11:36:53 Disorder of electrolyte s 740581779 Active 2024 KRYSTA FAN [facility], [facility] 5 09:32:12 Essential hypertensio n 40557084 Active 2024 KRYSTA FAN [facility], [facility] 5 14:47:17 Impingement syndrome of left shoulder region 2314867088623 04 Active 2024 KAYLIA L'HEUREUX [facility], [facility] 5 11:11:23 Osteoarthri tis of joint of left shoulder region 3500640131917 08 Active 2024 Joseline Toro PA-C [address], [place], [address], [facility] 5 08:33:00 Problem Notes None recorded. Procedures Surgical History Date Name Laterality Status Provider Name and Address Organization Details Recorded Time 1 Shoulder Surgery completed Mita Dickerson PA-C [address], , [address], [facility] 02/29/2024 11:37:56 3 Bariatric Surgery completed Mita Dickerson PA-C [address], , [address], [facility] 02/29/2024 11:37:56 Imaging Results None recorded. Procedure Notes None recorded. Medical Equipment None Reported. Allergies Allergen ID Allergen Name Allergen Category Reaction Reaction Severity Criticality Documentation Date Start Date Code Code System Note Provider Name and Address Organization Details Recorded Time 514053 phenobarb ital medicatio n swelling Not available Not available 02/27/2024 8134 RxNorm Mita Briceño i, PA-C [address], [place], [address], [facility] - [facility] 4 16:29:06 22843 acetamino phen / oxycodone medicatio n Not available Not available Not available 12/04/20232008 45319 3 RxNorm Sallie Barney [place], [place] - [facility] 5 08:55:59 Medications Name Sig Start Date [...] completed Not Available Not Available Not Available montelukast 10 mg tablet TAKE 1 TABLET BY MOUTH EVERY DAY AT BEDTIME FOR 30 DAYS active Not Available Not Available No t Available codeine 10 mg-guaifene sin 100 mg/5 [...] Not Available Not Available No t Available budesonide- formoterol HFA 160 mcg-4.5 mcg/actuati on aerosol inhaler INHALE 2 PUFFS INTO THE LUNGS 2 TIMES A DAY FOR 30 DAYS active Not [...] Updated DateTime 10/14/2024 170.18 cm 32.9 kg/m2 16109.4 g Sallie Barney [facility] 10/14/2024 08:58:48 Date Recorded Body height Body mass index (BMI) Body weight Heart rate Body temperature Oxygen saturation Oxygen saturation in Arterial blood by Pulse oximetry Respiratory rate Systolic And Diastolic Provider Name and Address Organization Details Last Updated DateTime 170.18 cm 32.9 kg/m2 54281.4 g 67 /min 98 [degF] 98 % 98 % 18 /min 116/74 mm[Hg] MERCEDES BUSTILLOS [facility] 09:58:43 Date Recorded Body height Body mass index (BMI) Body weight Provider Name and Address Organization Details Last Updated DateTime 02/04/2025 170.18 cm 30.9 kg/m2 24354.7 g jimi rodas [facility] 02/04/2025 08:48:02 Date Recorded Body height Provider Name an d Address Organization Details Last Updated DateTime 03/25/2025 170.18 cm EZEQUIEL RYAN [facility] 03/25/2025 10:01:30 Date Recorded Body height Body mass index (BMI) Body weight Provider Name and Address Organization Details Last Updated DateTime 05/20/2025 170.18 cm 31.3 kg/m2 32702.47 g Joseline Toro PA-C [address], [place], [address], [facility] 05/20/2025 09:30:01 Social History Question Answer Notes LastModified by Organizat ion Details LastModified Time Tobacco Smoking Status Former Smoker Sallie randhawa, On license of [facility] 10/14/2024 08:56:14 When Did You [...] other forms of tobacco or nicotine? Yes [email or web address] Information not available 11/15/2024 Do you or have you ever used e-cigarettes or vape? Never used electronic cigarettes Information not available 10/14/2024 Mental Status None recorded. Family History Nothing Reported. Medical History Condition Response Allergies/Hayfever Y Anxiety/Depression Y Breathing or lung disorders Y Kidney/Bladder Problems Y Anemia Y Seizures/Epilepsy Y Arthritis Y Acid Reflux (GERD) N Hypertension Y Asthma Y Gynecological HistoryNo gynecological history recorded. Obstetrics History GPAL:G 0 P 0 0 0 0 Past Encounters Encounter ID Performer Location Encounter Start Date Encounter Closed Date Diagnosis/Indication Diagnosis SNOMED-CT Code Diagnosis ICD10 Code Diagnosis IMO Codes Diagnosis Note [id number] JEREL Natione [address] [place] [address] 02/29/2024 08:53:29 03/11/2024 16:12:16 Pain of bilateral knee joints 9124984893 13667 M25.561 M25.562 Bilateral osteoarthritis of knees 9714161598 71713 M17.0 [id number] JEREL Sargent [facility] [address] [place] [address] 10/14/2024 08:52:51 11/04/2024 13:04:12 Pain of left shoulder joint 3097157690 9612609 M25.512 926958 Impingemen t syndrome of left shoulder region 8360063849 06030 M75.42 [id number] MD CHIKIS Gómez [facility] [address] [place] [address] 11/15/2024 08:20:35 12/03/2024 13:05:39 Impingement syndrome of left shoulder region 1264951552 42838 M75.42 36158473 Nontraumat ic partial rupture of left rotator cuff 8810189529 916786 M75.112 [id number] JEREL Patiño [address] [place] [address] 02/04/2025 08:40:00 02/11/2025 10:00:26 Postoperative visit 943252549 Z48.89 10678342 Impingemen t syndrome of left shoulder region 3726109795 48031 M75.42 53537559 Osteoarthr itis of joint of left shoulder region 5249213529 51567 M19.934 [id number] [place] [address] [address] 03/25/2025 09:56:04 04/02/2025 13:15:28 Postoperative visit 335503518 Z48.89 46849498 Impingemen t syndrome of left shoulder region 7839000313 07246 M75.42 64889313 Osteoarthr itis of joint of left shoulder region 2050960930 61557 M19.785 [id number] JEREL Patiño [address] [place] [address] 05/20/2025 09:11:55 05/28/2025 09:48:30 Impingement syndrome of left shoulder region 0735338100 99481 M75.42 [id number] Postoperative visit 1836 05905 Z48.89 78247251 Osteoarthr itis of joint of left shoulder region 3490632738 87953 M19.451 [id number] Health Concerns Section Related Observation LastModified by Organization Detai ls LastModified Time None Recorded Concern Status LastModified by Organization Details LastModified Time None Recorded Advance Directives Directive None Recorded Payers Insurance Date Sequence Insurance Name Policy Number Policy Carter Covered Member ID Carter Member ID Guarantor Name 05/28/[address] [place] [address] [id number] Geni Fisher Jadon [id number] Geni Natalia Jadon Notes Date Note Type Note Provider Name and Address Organization Details Recorded Time 10/14/2024 text/html I am seeing the patient today under the supervision of Dr. Rai who was available but who did not see the patient. HPI: Geni is a very pleasant 49-year-old female who presents for orthopedic evaluation of left nondominant shoulder pain. 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 Treatment for the left shoulder has included [...] ordered, obtained and independently reviewed today at [facility]. 4 views of the left shoulder [...] Potential need for surgery was discussed. Forest Whitley PA-C [address] [facility] [address], , [address], [facility] 10/14/2024 09:45:49 02/04/2025 text/html [...] and lucid. Normal insight, affect and grooming. CREDIT ANALYSIS MANAGER: Gross motor coordination is intact. No spasticity [...] All questions were answered. Joseline Toro PA-C [address] [place] [address] [address] [facility], , [address], [facility] - [facility] 02/04/2025 16:19:05 03/25/2025 text/html I am seeing [...] and lucid. Normal insight, affect and grooming. CREDIT ANALYSIS MANAGER: Gross motor coordination is intact. No spasticity [...] All questions were answered. Joseline Toro PA-C [address] [place] [address] [place] [address], [address], [facility] 03/25/2025 10:50:52 05/20/2025 text/html I am seeing the patient today under the supervision of Dr. Jaime who was available but who did not see the patient. HPI: Patient presents to the office today approximately 4 months status post left shoulder arthroscopy, subacromial decompression, distal clavicle excision, and extensive debridement. Overall doing well. Pain has been controlled. Has been making good progress with physical therapy. Continues to have some discomfort in the shoulder but is performing her daily activities without much difficulty. PMH/PSH/MEDS/ALL/FMH/ SOC HX/ROS are reviewed in detail per my medical intake sheet. General Exam: Vital signs are as noted below Mental status: Alert and lucid. Normal insight, affect and grooming. CREDIT ANALYSIS MANAGER: Gross motor coordination is intact. No spasticity or clonus noted. EXAMINATION: The patient is well appearing and in no apparent distress. Alert and oriented x3. Gait is symmetric. Left shoulder reveals well-healed surgical scars. No erythema, ecchymosis, or active drainage. Good muscle bulk without atrophy. Neurovascularly intact. No localized tenderness. Active elevation of the arm to approximately 160 degrees, IR to L4, ER 80 degrees. Full range of motion present at the elbow, wrist, and hand. No evidence of instability of the shoulder. Strength is appropriate. Intraoperative photos have been reviewed. IMPRESSION: Approximately 4 months status post left shoulder arthroscopy, subacromial decompression, distal clavicle excision, and extensive debridement. PLAN: Geni has made good progress postoperatively. She will keep up with her physical therapy exercises and slowly increase her daily activities. She is looking to return to full duty work. A note has been provided. Since she is doing well she may follow-up as needed. All questions answered. Joseline Toro PA-C [address] [facility] [address], , [address], [facility] 05/20/2025 16:01:41 OBGyn Episode No OBEpisode recorded.
== END 2025-08-12 13:34 | disposition home or self-care (01) ==
LOC: HO.HPS 12:48
PROVIDERS: PCP Pediatrics; Visit Provider Hospitalist
DX: J45.40 Moderate persistent asthma, uncomplicated (principal); R05.3 Chronic cough; R13.10 Dysphagia, unspecified
CPT/HCPCS: 99214